=== PATIENT | female | born 1945 | race Caucasian/White ===

== ENCOUNTER 2018-10-24 16:13 | Inpatient (IN) | payer MEDICARE, MEDICAID, SELFPAY ==
--- NOTE | 2018-10-24 00:30 | DI.RAD_ITS ---
EXAM: XR LUMBAR SPINE 1V ONLY INDICATION: lower back pain. FINDINGS: A frontal image of the lumbosacral spine is provided. There is a mild levo rotoscoliosis and there is an apparent old compression fracture of L2 with slight loss of height of L1, these findings are unch anged when compared with the previous examination. Degenerative changes are noted throughout the lum bosacral spine. This is a limited examination and if there is any further question, a complete lumbo sacral spine series is suggested.
--- NOTE | 2018-10-24 00:30 | DI.RAD_ITS ---
EXAM: XR HIP PELVIS ADULT BL INDICATION: right hip and lower back pain; s/p fall. COMPARISON: No exams were available for comparison TECHNIQUE: 2D digital imaging was performed. FINDINGS: The right hip appears intact. The left hip is well maintained. As visualized, the pelvic bones appea r unremarkable.
[2018-10-24 16:10] VITALS: BP 115/91; PULSE 64; RESP 16; TEMP 36.6; O2SAT 97
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
[2018-10-24] MEDS: LORazepam 1 MG TAB PO (16:49)
[2018-10-24] MEDS: traMADol 50 MG TAB PO (16:49)
[2018-10-24 17:19] LABS: Absolute Basophil Count 0.01 k/cumm (0.0-0.2); Absolute Eosinophil Count 0.16 k/cumm (0.0-0.7); Absolute Lymphocyte Count 0.63 k/cumm (1.2-3.4); Absolute Monocyte Count 0.34 k/cumm (0.11-0.7); Absolute Neutrophil Count 1.32 k/cumm (1.2-6.7); Basophils % 0.4; Eosinophils % 6.5; HCT 34.2 % (36.0-46.0); HGB 10.8 g/dL (12.0-15.5); Lymphocytes % 25.6; Mean Corp. HGB Concentration 31.6 g/dL (32.0-36.0); Mean Corpuscular Hemoglobin 29.9 pg (27.0-33.0); Mean Corpuscular Volume 94.7 fL (80-95); Mean Platelet Volume 9.2 fL (8.0-11.0); Monocytes % 13.8; Neutrophils % 53.7; RBC 3.61 m/cumm (4.00-5.20); RBC Distribution Width 15.4 % (11.7-14.6); White Blood Cell Count 2.46 k/cumm (4.4-10.8)
[2018-10-24 17:41] LABS: Platelet Count 72 x1000/uL (130-400)
[2018-10-24 17:59] LABS: ALT 20 U/L (14-59); AST 30 U/L (15-37); Albumin 2.9 g/dL (3.4-5.0); Alkaline Phosphatase 104 U/L (46-116); Anion Gap 8.3 mmol/L (3-11); BUN 13 mg/dL (7-18); Bilirubin, Total 1.4 mg/dL (0.2-1.0); CO2 29.7 mmol/L (21.0-32.0); CREATININE 1.05 mg/dL (0.55-1.02); Calcium 8.1 mg/dL (8.5-10.1); Chloride 105 mmol/L (98-107); Estimated GFR 51.66 (mL/min/1.73m2); Glucose 140 mg/dL (70-100); Potassium 3.5 mmol/L (3.5-5.1); Sodium 143 mmol/L (136-145); TSH 3.56 uIU/mL (0.36-3.74); Total Protein 5.9 g/dL (6.4-8.2)
[2018-10-24 18:00] LABS: ETHANOL BLOOD < 3.0 mg/dL (<3)
[2018-10-24] MEDS: Lidocaine 5% Patch 1 PATCH TP (18:10)
[2018-10-24] MEDS: Acetaminophen 325 MG TAB 650 MG PO (18:10)
[2018-10-24 18:14] LABS: Acetaminophen < 2 ug/mL (10-30); Salicylate < 2.8 mg/dL (2.8-20.0)
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
[2018-10-24 23:30] VITALS: BP 101/65; PULSE 68; RESP 18; TEMP 36.4; O2SAT 98
[2018-10-24] MEDS: LORazepam 0.5 MG TAB 1 MG PO (23:51)
[2018-10-24] MEDS: Acetaminophen 325 MG TAB PO (23:52)
--- NOTE | 2018-10-25 00:48 | DI.VRAD_ITS ---
PROCEDURE INFORMATION: Exam: XR Bilateral Hips with Pelvis when Performed Exam date and time: 10/24/2018 11:35 PM Clinical history: 73 years old, female; Hip pain; Bilateral; Additional info: Right hip and lower back pain S/P fall TECHNIQUE: Imaging protocol: XR bilateral hips with pelvis when performed. Views: 2 views. COMPARISON: No relevant prior studies available. FINDINGS: Bones/joints: Typical for age. No evidence of acute fracture. Soft tissues: Unremarkable. IMPRESSION: No acute findings. Dictated and Authenticated by: Maxx Mohan MD. Ordering:[facility] Iron Hager MD
--- NOTE | 2018-10-25 00:50 | DI.VRAD_ITS ---
PROCEDURE INFORMATION: Exam: XR Spine, 1 view. Exam date and time: 10/24/2018 11:36 PM Clinical history: 73 years old, female; Patient status: Conscious; Pain: Right hip and lower back pain S/P fall TECHNIQUE: Imaging protocol: XR of the spine, 1 view. COMPARISON: No relevant prior studies available. FINDINGS: Limited single AP view. Single AP view is of limited value. Possible loss of height L1 and L2 vertebral bodies. Diffuse mild to moderate degenerative changes. Large amount of stool in the rectal vault. IMPRESSION: Limited study. Degenerative change and possibly some compression fractures at L1 and more notably at L2. Indeterminate age. Large amount of stool in the rectum. Correlate with any impaction symptoms. Dictated and Authenticated by: Maxx Mohan MD. [facility]ager [facility]
[2018-10-25] MEDS: hydrOXYzine HCL 50 MG TAB PO ×2 (01:20→10:28)
[2018-10-25] MEDS: Lidocaine 5% Patch 3 PATCH TP (05:45)
[2018-10-25] MEDS: traMADol 50 MG TAB 100 MG PO (06:25)
--- NOTE | 2018-10-25 07:49 | PHARADMIT ---
Addendum entered by Ora Velasquez 10/30/18 11:20: Pharmacy Note Subjective psych consult today Objective HR-49 other VS okay Assessment mirtazapine discontinued yesterday rifaxamin continues (day 6) Plan CM working on setting up outpatient DIRECTOR OF CAREER RESOURCES services and discharge planning Original Note: Admission Pharmacy Clinical Review agitation, failure TO manage as outpatient Code Status Full Code Current Weight Wgt-121.5 kg Renally Cleared and Narrow Therapeutic Index Meds CrCl~ ?? QTc Value / Action Taken NA BP Control, Fever BP- 101/65 Tmax- 36.4C Electrolytes reviewed Na-143 K+3.5 DVT Prophylaxis Lovenox 40mg ??? low Plts will ask MD Opiate Usage / Scheduled Bowel Regimen Ordered Tramadol/Miralax-Senna Plt/SCr for Heparin / Enoxaparin Plts-72 SCr-1.05 INR for Warfarin na H/H stable, WBC/Bands H&H- 10.8/34.2 WBC- 2.46 Antibiotic appropriateness Rifaximin Cultures and Sensitivities NONE Surgical ABX d/c within 24 hr NA DM control / Insulin Dosing BG-140 EkC5e-0.4% Heart Failure (Check EF%) (HECTOR's, B-Block, Diuretics) Inderal, Torsemide, Spironolactone IV to PO Switch NA Home Meds Reviewed Yes Home Meds Not Ordered All Ordered Comments 2 SEPARATE ORDERS FOR Lidoderm Patches to ask
[2018-10-25 08:02] LABS: Hemoglobin A1C 5.4 % (4.5-6.2)
[2018-10-25] MEDS: Acetaminophen 325 MG TAB PO (10:27)
[2018-10-25] MEDS: Gabapentin 300 MG CAP PO ×2 (10:28→20:11)
[2018-10-25] MEDS: LORazepam 0.5 MG TAB 1 MG PO (10:28)
[2018-10-25] MEDS: Methocarbamol 750 MG TAB 1500 MG PO (10:28)
[2018-10-25 10:30] VITALS: BP 117/76; PULSE 63; RESP 18; TEMP 36.8; O2SAT 98
[2018-10-25] MEDS: Citalopram 20 MG TAB 40 MG PO (10:34)
[2018-10-25] MEDS: Rifaximin 550 MG TAB PO ×2 (10:34→20:11)
[2018-10-25] MEDS: Ferrous Sulfate 325 MG TAB PO (10:34)
[2018-10-25] MEDS: Propranolol 10 MG TAB PO ×2 (10:34→20:12)
[2018-10-25] MEDS: Torsemide 20 MG TAB 60 MG PO (10:34)
[2018-10-25] MEDS: Pantoprazole 40 MG TABCR PO ×2 (10:34→20:11)
[2018-10-25] MEDS: buPROPion-XL 150 MG TABCR PO (10:34)
[2018-10-25] MEDS: Spironolactone 50 MG TAB 100 MG PO ×2 (10:34→20:10)
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
[2018-10-25 15:04] LABS: Ammonia 102 umol/L (11-32)
[2018-10-25 15:07] LABS: ALT 19 U/L (14-59); AST 26 U/L (15-37); Albumin 2.8 g/dL (3.4-5.0); Alkaline Phosphatase 100 U/L (46-116); Bilirubin, Total 1.2 mg/dL (0.2-1.0); Total Protein 5.8 g/dL (6.4-8.2)
--- NOTE | 2018-10-25 15:31 | DI.CT_ITS ---
EXAM: CT LUMBAR SPINE WO CLINICAL HISTORY: ? compression fx L1-L2. TECHNIQUE: CT examination of the lumbosacral spine was performed utilizing multislice acquisition an d multiplanar reconstruction. COMPARISON: No exams were available for comparison FINDINGS: The bones are markedly demineralized. There is superior endplate compression of L2 vertebral body, w hich is of uncertain age. There may be a new anterior vertebral body compression fracture with sligh t loss of height anteriorly, 10-15 percent of the vertebral height. No additional fracture identifie d in the lumbar region. There are moderate hypertrophic degenerative changes of the facet joints and endplates. There appears to be moderate central canal spinal stenosis at L4-5 and mild central iesha l spinal stenosis at L3-4. No gross neural foraminal stenosis noted from L1-2 through L4-5. There i s probable mild bilateral neural foraminal stenosis at L5-S1. IMPRESSION: Slight anterior vertebral body compression fracture of L2, probably superimposed on chronic superior endplate compression. Moderate central canal spinal stenosis at L4-5, mild central canal spinal steno sis at L3-4.
[2018-10-25 15:47] VITALS: BP 95/54; PULSE 53; RESP 19; TEMP 36.5; O2SAT 95
[2018-10-25 17:07] VITALS: BP 111/65; PULSE 50
--- NOTE | 2018-10-25 17:45 | PDOC.CMIN ---
- If Service Date Differs Date of service: 10/25/18 Time of Service: 17:45 Care Management Initial Assess REASON FOR HOSPITALIZATION:: Agitation, failure to manage outpatient PAST MEDICAL HISTORY/PAST SURGICAL HISTORY:: Medical History. Anxiety (Chronic). Chronic acquired lymphedema (Acute). Cirrhosis of liver (Acute). Degenerative disc disease (Acute). Depression (Chronic). Diastolic CHF (Chronic). Fatty liver (Acute). Hx of esophageal varices (Acute). Iron deficiency anemia (Acute). Morbid obesity (Acute). Myelodysplasia (myelodysplastic syndrome) (Acute). Osteoarthritis (Chronic). PTSD (post-traumatic stress disorder) (Acute). Sleep apnea (Acute). Thrombocythemia (Acute). Type 2 diabetes mellitus (Chronic) PREVIOUS FUNCTIONAL STATUS/SOCIAL/FAMILY SUPPORTS:: 73 yr old female former resident of [place], [place] who had a prolonged stay at [facility] for anxiety and depression (reportedly 4 months d/t inability to place her in outpatient setting) who was discharged 13 days ago to home care setting in [place]. CURRENT FUNCTIONAL STATUS:: Tammy was sleeping when CM met with her, along with her counter caser from [facility]. She was unable to communicate due to drowsiness. ADVANCE DIRECTIVES:: None on file Has patient been provided with information about the portal?: No Did the patient sign up for the portal?: No CODE STATUS:: Full Code INSURANCE COVERAGE / FINANCIAL ISSUES:: [facility] CURRENT HOME/COMMUNITY SERVICES/EQUIPMENT:: Tammy has previously been [employer] client in [facility]. She was placed in an AF home through [facility]. Her counter caser is working on providing her with services in this area. PRIMARY CARE PHYSICIAN:: Zulay Barth POTENTIAL DISCHARGE NEEDS:: Evaluations for further needs, follow up appoinments, referrals to community supports. PATIENT/FAMILY EDUCATION NEEDS:: Review of community based supports, discharge plan, discussion of self care needs upon discharge including 'Ask Me Three' ANTICIPATED BARRIERS TO DISCHARGE:: Tammy is in need of community supports through [facility] including S[employer], psychiatry, therapist and behavioral plan. TRANSPORTATION:: Anticipate Tammy will be transported via private vehicle by [facility] home provider. PLAN:: Support discharge planning and coordination of services through [facility] and [facility] services. CM will continue to follow.
[2018-10-25] MEDS: Patch Removal 3 EACH TP (18:08)
--- NOTE | 2018-10-25 18:43 | NUR.NOTE ---
Nursing Note: Pt was very drowsy but arousable all shift [id number]. INTERNATIONAL RELATIONS PROFESSOR chelle Sandoval informed of Pt LOC this morning around 1030 and again at 1430. Pt too drowsy to safely take PO medications. Declined all Meals during this scribes shift. Offered Pt liquids, declined those as well. incontinent x3.
--- NOTE | 2018-10-25 19:03 | DI.CT_ITS ---
EXAM: CT HEAD WO CLINICAL HISTORY: Altered mental status. TECHNIQUE: A noncontrast cranial CT was performed according to the usual protocol. COMPARISON: No exams were available for comparison FINDINGS: Mild atrophic changes are noted. There is no evidence of an intra or extra-axial hemorrhage. Ventric les are normal. No skull fracture is seen. Sinuses are unremarkable. There is no evidence of a masto id effusion. IMPRESSION: No acute intracranial abnormality is identified.
--- NOTE | 2018-10-25 19:15 | DI.VRAD_ITS ---
PROCEDURE INFORMATION: Exam: CT Head Without Contrast Exam date and time: 10/25/2018 7:01 PM Clinical history: 73 years old, female; Alteration of consciousness; Transient alteration of awareness TECHNIQUE: Imaging protocol: Computed tomography of the head without contrast. Radiation optimization: All CT scans at this facility use at least one of these dose optimization techniques: automated exposure control; mA and/or kV adjustment per patient size (includes targeted exams where dose is matched to clinical indication); or iterative reconstruction. COMPARISON: No relevant prior studies available. FINDINGS: Brain: There is mild prominence of the cerebral cortical markings. Ventricles: Normal. No ventriculomegaly. Bones/joints: Unremarkable. No acute fracture. Sinuses: Visualized sinuses are unremarkable. No fluid levels. Mastoid air cells: Visualized mastoid air cells are well aerated. Soft tissues: Unremarkable. IMPRESSION: 1. No acute intracranial abnormality is identified. 2. Mild age commensurate cerebral cortical atrophy. Dictated and Authenticated by: Tony Quispe MD. Ordering:MERISSA Montalvo MD
[2018-10-25] MEDS: Lactulose 20 GM/30 ML CUP 45 GM PO (20:10)
[2018-10-25] MEDS: Nystatin OINT 15 GM TUBE TP (20:13)
[2018-10-25 22:02] VITALS: BP 119/68; PULSE 58; RESP 18; TEMP 36.2; O2SAT 98
[2018-10-25] MEDS: Senna TAB 1 TAB PO (22:12)
[2018-10-26] MEDS: Lidocaine 5% Patch 3 PATCH TP (06:20)
[2018-10-26 06:52] LABS: Ammonia 28 umol/L (11-32)
[2018-10-26 06:53] LABS: ALT 18 U/L (14-59); AST 24 U/L (15-37); Albumin 2.9 g/dL (3.4-5.0); Alkaline Phosphatase 103 U/L (46-116); Bilirubin, Direct 0.36 mg/dL (0.00-0.20); Total Protein 6.1 g/dL (6.4-8.2)
[2018-10-26 07:30] VITALS: BP 108/60; PULSE 63; RESP 18; TEMP 36.5; O2SAT 93
[2018-10-26 08:23] LABS: Anion Gap 9.6 mmol/L (3-11); BUN 15 mg/dL (7-18); CO2 28.4 mmol/L (21.0-32.0); Calcium 8.5 mg/dL (8.5-10.1); Chloride 109 mmol/L (98-107); Estimated GFR 48.96 (mL/min/1.73m2); Glucose 96 mg/dL (70-100); Magnesium 2.2 mg/dL (1.8-2.4); Potassium 3.7 mmol/L (3.5-5.1); Sodium 147 mmol/L (136-145)
--- NOTE | 2018-10-26 08:55 | NT_ITS ---
Date of service: 10/26/18 Time of Service: 08:33 PT Notes Patient is a 73-year-old female who presented to the ED on 10/24/2018 with chief presentation of anxiety and right hip pain. Patient also has had a fall. CT scan of head revealed no intracranial abnormality. X-ray of lumbar spine showed DJD and L1 compression fracture of indeterminate age. X-ray of both hips showed no fracture/dislocation. A PT evaluation was attempted early today with OT. Patient appeared drowsy and did not want to engage in any attempts at initiating PT evaluation. She states that she is cold and did not want her bed sheets taken off. An attempt at accessing her back was made but patient persisted on having her sheets on. Irina dayanna does not appear to be appropriate for skilled PT services at this time. Will plan to do PT evaluation once patient is settled in and once she is more cognitively/emotionally stable after re-adjustment is done with her anxiolyics and adntidepressants. Thank you very much for this referral. Angelique Pisano PT, DPT, CLT [facility]
--- NOTE | 2018-10-26 08:56 | OT.INNT ---
Date of service: 10/26/18 Time of Service: 08:35 Occupational Therapy Notes 10/26/18 OT consult received and patient's chart was reviewed. OT went in to assess pt. Pt denies OT services at this time with little to no eye contact and reports that she just wants to sleep. Based on pt's current level of function, OT does not feel that pt is appropriate for rehabilitation services at this time. If pt does stabilize and MD feels that pt may still benefit from skilled OT services in the future, OT will need a new referral in order to see patient. Michelle Jesus, OTR/[facility]
--- NOTE | 2018-10-26 10:46 | NT_ITS ---
Date of service: 10/26/18 Time of Service: 10:46 PT Notes Another attempt at evaluation was made per request of nurse who stated that patient wanted to use the bathroom. Student PT and PT came back in to attempt to mobilize patient but patient expressed pain with just gentle touch and cried out her answer of wanting to back to [place]. PT and PREVENTIVE MEDICINE SPECIALIST tried to pacify patient explaining to her that if she needed to go back to [place], she needs to be able to work with PT so she can be safe. Patient was also informed about not needing to cry as we were there to help her and not hurt her. Patient continued to be uncooperative despite all these. Skilled PT services are not advisable at this time as patient continues to be unable to participate. Thank you very much for this referral. Angelique Pisano PT, DPT, CLT [facility]
--- NOTE | 2018-10-26 12:16 | W.PM.PROGNOT ---
Date of Service Date of service: 10/26/18 Time of Service: 12:17 Assessment and Plan Assessment and plan (1) Compression fracture: Start date: 10/26/18 Start time: 12:34 Status: Acute Assessment and plan: CT reveals slight anterior vertebral body compression fracture of L2, probably superimposed on chronic superior endplate compression. Moderate central canal spinal stenosis at L4-5, mild central canal spinal stenosis at L3-4. Warm pack for comfort. Lidoderm patch PT/OT for ambulation Consider tramadol low dose if patient presents with worsening pain when awake. Increase dose to every 12 hours given cirrhosis history. (2) Chronic low back pain: Start date: 10/26/18 Start time: 12:33 Status: Chronic Assessment and plan: Tramadol on hold at this time given lethargy. Continue to monitor. PT/OT, warm back and lidoderm patch for pain, Qualifiers: Back pain laterality: midline Sciatica presence: without sciatica Qualified Code(s): M54.5 - Low back pain; G89.29 - Other chronic pain (3) Right hip pain: Start date: 10/26/18 Start time: 12:33 Status: Acute Assessment and plan: as above (4) Depression: Start date: 10/26/18 Start time: 12:33 Status: Chronic Assessment and plan: Wellbutrin resumed. Ativan held in setting of patient sleepy. Continue to monitor moods. Qualifiers: Depression Type: major depressive disorder Major depression recurrence: recurrent Active/Remission status: currently active Major depression episode severity: moderate Qualified Code(s): F33.1 - Major depressive disorder, recurrent, moderate (5) Anxiety: Start date: 10/26/18 Start time: 12:32 Status: Chronic Assessment and plan: as above (6) Discharge planning issues: Start date: 10/26/18 Start time: 12:32 Status: Acute Assessment and plan: Her current ACF is interested in taking her back home. (7) Type 2 diabetes mellitus: Start date: 10/26/18 Start time: 12:31 Status: Chronic Assessment and plan: A1C 5.4. Finger sticks BID will be dcd. Qualifiers: Diabetes mellitus mcc insulin use: without exterminator termite use Diabetes mellitus complication status: without complication Qualified Code(s): E11.9 - Type 2 diabetes mellitus without complications (8) Cirrhosis of liver: Start date: 10/26/18 Start time: 12:28 Status: Acute Assessment and plan: Does note appear active at this time. AST ALT normal. Slightly elevated pneumonia within normal limits today. Continue lactulose, rifaximin, spirlactone and torsemide. (9) Diastolic CHF: Start date: 10/26/18 Start time: 12:31 Status: Chronic Assessment and plan: she does not appear to be in overt CHF at this time. I will continue her current diuretic and blood pressure regimen of torsemide, spironolactone, and propranolol The above has been discussed with Dr. Vinson who is in agreement. Qualifiers: Heart failure chronicity: chronic Qualified Code(s): I50.32 - Chronic diastolic (congestive) heart failure Subjective Subjective Patient reports: no new complaints Interval history since last seen: Question of compression fracture by xray. CT obtained revealing slight anterior vertebral body compression fracture of L2, probably superimposed on chronic superior endplate compression. PT/OT. Warm pack for comfort, lidoderm patch. Once more awake consider small dose tramadol for pain. Can be very manipulative, per CM does well with boundaries and limitations. Exam Const General: cooperative and no acute distress Nutritional Appearance: obese HENMT Head: normal to inspection and periorbital ecchymosis Face and sinus: normal facial exam Eyes Eyelids: eyelids normal Conjunctivae: conjunctivae normal Pupils: PERRL Neck Neck: normal visual inspection Lymphatic: no lymphadenopathy noted and no lymphedema noted Chest Chest: normal inspection of the chest Resp Effort & Inspection: normal respiratory effort and able to speak in complete sentences Auscultation: clear to auscultation bilaterally Cardio Jugular venous pressure: no JVD Rate: regular rate Rhythm: regular rhythm Heart Sounds: S1 normal, S2 normal and normal, physiologic split S2 GI Inspection: normal to inspection Palpation: soft and no hepatosplenomegaly Auscultation: normal bowel sounds Skin General skin exam: ecchymosis (right periorbital) Lesions: no lesions Neuro General: other (unable to assess at this time as patient is sleepy but arousable) Extrem General: normal to inspection Right lower extremity: no cyanosis Left lower extremity: no cyanosis Objective Objective Clinical Data: Abnormal lab results 10/25/18 10/25/18 10/26/18 Range/Units 14:42 14:42 06:20 Sodium (136-145) mmol/L Chloride (98-107) mmol/L Creatinine (0.55-1.02) mg/dL Total Bilirubin 1.2 H (0.2-1.0) mg/dL Conjugated Bilirubin 0.40 H 0.36 H (0.00-0.20) mg/dL Ammonia 102 H (11-32) umol/L Total Protein 5.8 L 6.1 L (6.4-8.2) g/dL Albumin 2.8 L 2.9 L (3.4-5.0) g/dL 10/26/18 Range/Units 06:20 Sodium 147 H (136-145) mmol/L Chloride 109 H (98-107) mmol/L Creatinine 1.10 H (0.55-1.02) mg/dL Total Bilirubin (0.2-1.0) mg/dL Conjugated Bilirubin (0.00-0.20) mg/dL Ammonia (11-32) umol/L Total Protein (6.4-8.2) g/dL Albumin (3.4-5.0) g/dL Vital Signs Temperature 36.5 C 10/26/18 07:30 Temperature Source Tympanic 10/26/18 07:30 Pulse 63 10/26/18 07:30 Pulse Rhythm Regular 10/25/18 20:33 Respiratory Rate 18 10/26/18 07:30 Respiratory Effort Non-Labored 10/26/18 04:03 Respiratory Depth Normal 10/26/18 04:03 Respiratory Pattern Normal 10/26/18 04:03 Blood Pressure 108/60 10/26/18 07:30 Blood Pressure Position Supine 10/24/18 16:10 Pulse Oximetry 93 L 10/26/18 07:30 Oxygen Delivery Method Room Air 10/26/18 07:30 Oxygen Flow Rate 0 10/26/18 07:30 Pain Level 5 10/26/18 07:30 Intake & Output 10/25/18 10/26/18 10/26/18 23:59 11:59 23:59 Other: Urine Color Pale Pale Yellow Urine Appearance Clear Clear Urine Odor None None Comment large void on bed jin, partially incontinent Stool Size Small Small Stool Characteristics Hard Formed Hard Voiding Methods Diaper Diaper Incontinent Laboratory Results WBC 2.46 k/cumm (4.4-10.8) L 10/24/18 17:15 RBC 3.61 m/cumm (4.00-5.20) L 10/24/18 17:15 Hgb 10.8 g/dL (12.0-15.5) L 10/24/18 17:15 Hct 34.2 % (36.0-46.0) L 10/24/18 17:15 MCV 94.7 fL (80-95) 10/24/18 17:15 MCH 29.9 pg (27.0-33.0) 10/24/18 17:15 MCHC 31.6 g/dL (32.0-36.0) L 10/24/18 17:15 RDW 15.4 % (11.7-14.6) H 10/24/18 17:15 Plt Count 72 x1000/uL (130-400) L 10/24/18 17:15 MPV 9.2 fL (8.0-11.0) 10/24/18 17:15 Immature Gran % 0.0 10/24/18 17:15 Neutrophils % 53.7 10/24/18 17:15 Lymphocytes % 25.6 10/24/18 17:15 Monocytes % 13.8 10/24/18 17:15 Eosinophils % 6.5 10/24/18 17:15 Basophils % 0.4 10/24/18 17:15 Absolute Neutrophils 1.32 k/cumm (1.2-6.7) 10/24/18 17:15 Absolute Lymphocytes 0.63 k/cumm (1.2-3.4) L 10/24/18 17:15 Absolute Monocytes 0.34 k/cumm (0.11-0.7) 10/24/18 17:15 Absolute Eosinophils 0.16 k/cumm (0.0-0.7) 10/24/18 17:15 Absolute Basophils 0.01 k/cumm (0.0-0.2) 10/24/18 17:15 Sodium 147 mmol/L (136-145) H 10/26/18 06:20 Potassium 3.7 mmol/L (3.5-5.1) 10/26/18 06:20 Chloride 109 mmol/L (98-107) H 10/26/18 06:20 Carbon Dioxide 28.4 mmol/L (21.0-32.0) 10/26/18 06:20 Anion Gap 9.6 mmol/L (3-11) 10/26/18 06:20 BUN 15 mg/dL (7-18) 10/26/18 06:20 Creatinine 1.10 mg/dL (0.55-1.02) H 10/26/18 06:20 Estimated GFR/1.73 m2 48.96 (mL/min/1.73m2) 10/26/18 06:20 Glucose 96 mg/dL (70-100) 10/26/18 06:20 Hemoglobin A1c 5.4 % (4.5-6.2) 10/25/18 07:10 Calcium 8.5 mg/dL (8.5-10.1) 10/26/18 06:20 Magnesium 2.2 mg/dL (1.8-2.4) 10/26/18 06:20 Total Bilirubin 1.0 mg/dL (0.2-1.0) 10/26/18 06:20 Conjugated Bilirubin 0.36 mg/dL (0.00-0.20) H 10/26/18 06:20 AST 24 U/L (15-37) 10/26/18 06:20 ALT 18 U/L (14-59) 10/26/18 06:20 Alkaline Phosphatase 103 U/L (46-116) 10/26/18 06:20 Ammonia 28 umol/L (11-32) 10/26/18 06:20 Total Protein 6.1 g/dL (6.4-8.2) L 10/26/18 06:20 Albumin 2.9 g/dL (3.4-5.0) L 10/26/18 06:20 TSH 3.56 uIU/mL (0.36-3.74) 10/24/18 17:15 Salicylates < 2.8 mg/dL (2.8-20.0) L 10/24/18 17:15 Urine Opiates Screen Cancelled 10/24/18 15:40 Urine Methadone Screen Cancelled 10/24/18 15:40 Acetaminophen < 2 ug/mL (10-30) L 10/24/18 17:15 Ur Barbiturates Screen Cancelled 10/24/18 15:40 Ur Tricyclics Screen Cancelled 10/24/18 15:40 Ur Amphetamines Screen Cancelled 10/24/18 15:40 U Benzodiazepines Scrn Cancelled 10/24/18 15:40 Urine Cocaine Screen Cancelled 10/24/18 15:40 Ur THC Screen Cancelled 10/24/18 15:40 Ethyl Alcohol < 3.0 mg/dL (<3) 10/24/18 17:15
[2018-10-26] MEDS: traMADol 50 MG TAB 25 MG PO (14:41)
[2018-10-26] MEDS: Gabapentin 300 MG CAP PO ×2 (14:41→22:38)
[2018-10-26 14:52] LABS: Absolute Basophil Count 0.03 k/cumm (0.0-0.2); Absolute Eosinophil Count 0.37 k/cumm (0.0-0.7); Absolute Lymphocyte Count 0.77 k/cumm (1.2-3.4); Absolute Monocyte Count 0.39 k/cumm (0.11-0.7); Absolute Neutrophil Count 1.11 k/cumm (1.2-6.7); Basophils % 1.1; Eosinophils % 13.9; HCT 36.8 % (36.0-46.0); HGB 11.3 g/dL (12.0-15.5); Lymphocytes % 28.8; Mean Corp. HGB Concentration 30.7 g/dL (32.0-36.0); Mean Corpuscular Hemoglobin 29.8 pg (27.0-33.0); Mean Corpuscular Volume 97.1 fL (80-95); Mean Platelet Volume 10.9 fL (8.0-11.0); Monocytes % 14.6; Neutrophils % 41.6; Platelet Count 84 x1000/uL (130-400); RBC 3.79 m/cumm (4.00-5.20); RBC Distribution Width 15.6 % (11.7-14.6); White Blood Cell Count 2.67 k/cumm (4.4-10.8)
[2018-10-26 16:00] LABS: Diff Comment PLT Morph Reviewed
[2018-10-26] MEDS: Mirtazapine 15 MG TAB 7.5 MG PO (16:41)
[2018-10-26] MEDS: Patch Removal 3 EACH TP (17:49)
--- NOTE | 2018-10-26 18:19 | CMPROGNOTE_ITS ---
- If Service Date Differs Date of service: 10/26/18 Time of Service: 18:19 Care Management Progress Note S/O: Tammy was lying in bed when CM entered the room along with her [facility] home care provider, Dede, and her correctional counselor/case manager with [facility], Chasity. Tammy was pleasant but not very engaging in conversation. CM stated that the providers were working on getting her healthy in order for her to return to [facility]'s house, which she was agreeable to. Tammy has been yelling out for help most of the day. Nursing has been advised to attend to her needs, but to set good limits and boundaries due to her behaviors as reported from CM at [facility] from her previous stay. A: Tammy is a 73 year old female admitted with agitation and failure to manage outpatient. P: Anticipate Tammy will return to [facility] home (Dede's home in [place]) on Monday after being medically cleared. Due to Tammy's behaviors it is important that good limits and boundaries are set by all those who are caring for her while at [facility]. Anticipate Tammy will transport home via private vehicle with Dede. CM will continue to follow.
[2018-10-27 03:35] VITALS: BP 109/66; PULSE 66; RESP 20; TEMP 36.1; O2SAT 98
[2018-10-27] MEDS: Lidocaine 5% Patch 3 PATCH TP (06:59)
[2018-10-27 07:32] LABS: Abs Immature Grans 0.01 k/cumm (0.0-0.09); Absolute Basophil Count 0.02 k/cumm (0.0-0.2); Absolute Eosinophil Count 0.38 k/cumm (0.0-0.7); Absolute Monocyte Count 0.44 k/cumm (0.11-0.7); Absolute Neutrophil Count 1.08 k/cumm (1.2-6.7); Basophils % 0.8; Eosinophils % 14.4; HCT 34.6 % (36.0-46.0); HGB 10.9 g/dL (12.0-15.5); Immature Grans % 0.4; Lymphocytes % 26.6; Mean Corp. HGB Concentration 31.5 g/dL (32.0-36.0); Mean Corpuscular Hemoglobin 29.8 pg (27.0-33.0); Mean Corpuscular Volume 94.5 fL (80-95); Mean Platelet Volume 10.3 fL (8.0-11.0); Monocytes % 16.7; Neutrophils % 41.1; RBC 3.66 m/cumm (4.00-5.20); White Blood Cell Count 2.63 k/cumm (4.4-10.8)
[2018-10-27 07:40] LABS: Anion Gap 8.4 mmol/L (3-11); BUN 13 mg/dL (7-18); CO2 27.6 mmol/L (21.0-32.0); CREATININE 0.96 mg/dL (0.55-1.02); Calcium 8.4 mg/dL (8.5-10.1); Chloride 106 mmol/L (98-107); Estimated GFR 57.29 (mL/min/1.73m2); Glucose 153 mg/dL (70-100); Magnesium 2.2 mg/dL (1.8-2.4); Potassium 3.1 mmol/L (3.5-5.1); Sodium 142 mmol/L (136-145)
[2018-10-27 07:53] LABS: Diff Comment Agrees w/ Instrument; Platelet Count 80 x1000/uL (130-400); RBC Morphology Normal
[2018-10-27] MEDS: Citalopram 20 MG TAB 40 MG PO (08:33)
[2018-10-27] MEDS: LORazepam 0.5 MG TAB PO (08:34)
[2018-10-27] MEDS: Pantoprazole 40 MG TABCR PO ×2 (08:34→19:06)
[2018-10-27] MEDS: Spironolactone 50 MG TAB 100 MG PO ×2 (08:34→19:06)
[2018-10-27] MEDS: buPROPion-XL 150 MG TABCR PO (08:35)
[2018-10-27] MEDS: Gabapentin 300 MG CAP PO ×3 (08:35→19:06)
[2018-10-27] MEDS: Ferrous Sulfate 325 MG TAB PO (08:35)
[2018-10-27] MEDS: Calcium 600mg/Vit D 200U TAB 1 TAB PO ×2 (08:35→19:06)
[2018-10-27] MEDS: Propranolol 10 MG TAB PO ×2 (08:35→19:06)
[2018-10-27] MEDS: Torsemide 20 MG TAB 60 MG PO (08:35)
[2018-10-27] MEDS: Rifaximin 550 MG TAB PO ×2 (08:35→19:06)
[2018-10-27] MEDS: Nystatin OINT 15 GM TUBE TP ×2 (09:05→19:07)
[2018-10-27 09:48] VITALS: BP 111/67; PULSE 71; RESP 18; TEMP 36.6; O2SAT 98
--- NOTE | 2018-10-27 09:51 | PDOC.CMPRO ---
- If Service Date Differs Date of service: 10/27/18 Time of Service: 09:51 Care Management Progress Note S/O: Tammy was sleeping when CM came to see her. At the request of nursing, she was not awakened. Tammy had a long period of yelling and screaming this morning, audible throughout the unit. Initially she refused her medication, but eventually accepted most of it, then fell asleep. CM will continue to follow. A: Tammy is a 73 year old female admitted with agitation and failure to manage outpatient. P: Anticipate Tammy will return to [facility] home (Dede's home in [place]) on Monday after being medically cleared. Due to Tammy's behaviors it is important that good limits and boundaries are set by all those who are caring for her while at [facility]. Anticipate Tammy will transport home via private vehicle with Dede. CM will continue to follow.
[2018-10-27] MEDS: Potassium Chloride 20 MEQ TABCR 40 MEQ PO (10:59)
[2018-10-27] MEDS: Lactulose 20 GM/30 ML CUP 45 GM PO ×2 (11:48→16:06)
[2018-10-27] MEDS: traMADol 50 MG TAB 25 MG PO (12:04)
--- NOTE | 2018-10-27 12:29 | W.PM.PROGNOT ---
Date of Service Date of service: 10/27/18 Time of Service: 12:29 Assessment and Plan Assessment and plan (1) Compression fracture: Start date: 10/27/18 Start time: 12:33 Status: Acute Assessment and plan: continue low dose tramadol for pain, lidoderm patches, and heating pad. Refusing to get up with PT at this time. Will cry out in pain but refuse medication and continue to yell out. (2) Chronic low back pain: Start date: 10/27/18 Start time: 12:35 Status: Chronic Assessment and plan: 25 mg BID restarted for pain with monitoring. Continue heating pad and lidoderm patches. Qualifiers: Back pain laterality: midline Sciatica presence: without sciatica Qualified Code(s): M54.5 - Low back pain; G89.29 - Other chronic pain (3) Right hip pain: Start date: 10/27/18 Start time: 12:36 Status: Acute Assessment and plan: as above (4) Depression: Start date: 10/27/18 Start time: 12:36 Status: Chronic Assessment and plan: Wellbutrin resumed. Ativan held in setting of patient sleepy. started on buspar for mood stabilzer, monitor Continue to monitor moods. Qualifiers: Depression Type: major depressive disorder Major depression recurrence: recurrent Active/Remission status: currently active Major depression episode severity: moderate Qualified Code(s): F33.1 - Major depressive disorder, recurrent, moderate (5) Anxiety: Start date: 10/27/18 Start time: 12:42 Status: Chronic Assessment and plan: as above (6) Discharge planning issues: Start date: 10/27/18 Start time: 12:42 Status: Acute Assessment and plan: Her current ACF is interested in taking her back home. (7) Type 2 diabetes mellitus: Start date: 10/27/18 Start time: 12:43 Status: Chronic Assessment and plan: A1C 5.4. Finger sticks BID will be dcd. Qualifiers: Diabetes mellitus continuous churn buttermaker insulin use: without continuous churn buttermaker use Diabetes mellitus complication status: without complication Qualified Code(s): E11.9 - Type 2 diabetes mellitus without complications (8) Cirrhosis of liver: Start date: 10/27/18 Start time: 12:43 Status: Acute Assessment and plan: Does note appear active at this time. AST ALT normal. Slightly elevated pneumonia within normal limits today. Continue lactulose, rifaximin, spirlactone and torsemide. (9) Diastolic CHF: Start date: 10/27/18 Start time: 12:43 Status: Chronic Assessment and plan: she does not appear to be in overt CHF at this time. I will continue her current diuretic and blood pressure regimen of torsemide, spironolactone, and propranolol The above has been discussed with Dr. Vinson who is in agreement. Qualifiers: Heart failure chronicity: chronic Qualified Code(s): I50.32 - Chronic diastolic (congestive) heart failure (10) Hypokalemia: Start date: 10/27/18 Start time: 12:43 Status: Acute Assessment and plan: Repleted with 40 meq K and monitor am labs. Subjective Subjective Interval history since last seen: Continues to yell out and act out. Will cry out in pain but when offered medication will refuse. Very manipulative behavior. Will self harm if she does not get what she wants. Mirtazipine started to sleep last night. Per nursing slept well, will continue current dose at this time. Exam Const General: cooperative and no acute distress Nutritional Appearance: obese HENMT Head: normal to inspection and periorbital ecchymosis Face and sinus: normal facial exam Eyes Eyelids: eyelids normal Conjunctivae: conjunctivae normal Pupils: PERRL Neck Neck: normal visual inspection Lymphatic: no lymphadenopathy noted and no lymphedema noted Chest Chest: normal inspection of the chest Resp Effort & Inspection: normal respiratory effort and able to speak in complete sentences Auscultation: clear to auscultation bilaterally Cardio Jugular venous pressure: no JVD Rate: regular rate Rhythm: regular rhythm Heart Sounds: S1 normal, S2 normal and normal, physiologic split S2 GI Inspection: normal to inspection Palpation: soft and no hepatosplenomegaly Auscultation: normal bowel sounds Skin General skin exam: ecchymosis (right periorbital) Lesions: no lesions Neuro General: other (unable to assess at this time as patient is sleepy but arousable) Extrem General: normal to inspection Right lower extremity: no cyanosis Left lower extremity: no cyanosis Objective Objective Clinical Data: Abnormal lab results 10/26/18 10/27/18 10/27/18 Range/Units 06:20 06:30 06:30 WBC 2.67 L 2.63 L (4.4-10.8) k/cumm RBC 3.79 L 3.66 L (4.00-5.20) m/cumm Hgb 11.3 L 10.9 L (12.0-15.5) g/dL Hct 34.6 L (36.0-46.0) % MCV 97.1 H (80-95) fL MCHC 30.7 L 31.5 L (32.0-36.0) g/dL RDW 15.6 H 15.0 H (11.7-14.6) % Plt Count 84 L 80 L (130-400) x1000/uL Absolute Neutrophils 1.11 L 1.08 L (1.2-6.7) k/cumm Absolute Lymphocytes 0.77 L 0.70 L (1.2-3.4) k/cumm Potassium 3.1 L (3.5-5.1) mmol/L Glucose 153 H (70-100) mg/dL Calcium 8.4 L (8.5-10.1) mg/dL Vital Signs Temperature 36.1 C L 10/27/18 03:35 Temperature Source Temporal Artery Scan 10/27/18 03:35 Pulse 66 10/27/18 03:35 Pulse Rhythm Irregular 10/27/18 02:35 Respiratory Rate 20 10/27/18 03:35 Respiratory Effort 10/27/18 02:35 Respiratory Depth Normal 10/27/18 02:35 Respiratory Pattern Normal 10/27/18 02:35 Blood Pressure 109/66 10/27/18 03:35 Blood Pressure Position Supine 10/24/18 16:10 Pulse Oximetry 98 10/27/18 03:35 Oxygen Delivery Method Room Air 10/27/18 03:35 Oxygen Flow Rate 0 10/27/18 03:35 Pain Level 0 10/27/18 03:35 Comment 10/27/18 03:35 Intake & Output 10/26/18 10/27/18 10/27/18 23:59 11:59 23:59 Intake Total 240 / 240 Balance 240 / 240 Intake: Oral 240 / 240 Other: Urine Color Yellow Yellow Urine Appearance Clear Comment pt incontinent of a large amount of urine Stool Size Large Small Stool Characteristics Formed Soft Brown Formed Voiding Methods Diaper Diaper Incontinent Incontinent Laboratory Results WBC 2.63 k/cumm (4.4-10.8) L 10/27/18 06:30 RBC 3.66 m/cumm (4.00-5.20) L 10/27/18 06:30 Hgb 10.9 g/dL (12.0-15.5) L 10/27/18 06:30 Hct 34.6 % (36.0-46.0) L 10/27/18 06:30 MCV 94.5 fL (80-95) 10/27/18 06:30 MCH 29.8 pg (27.0-33.0) 10/27/18 06:30 MCHC 31.5 g/dL (32.0-36.0) L 10/27/18 06:30 RDW 15.0 % (11.7-14.6) H 10/27/18 06:30 Plt Count 80 x1000/uL (130-400) L 10/27/18 06:30 MPV 10.3 fL (8.0-11.0) 10/27/18 06:30 Immature Gran % 0.4 10/27/18 06:30 Neutrophils % 41.1 10/27/18 06:30 Lymphocytes % 26.6 10/27/18 06:30 Monocytes % 16.7 10/27/18 06:30 Eosinophils % 14.4 10/27/18 06:30 Basophils % 0.8 10/27/18 06:30 Absolute Neutrophils 1.08 k/cumm (1.2-6.7) L 10/27/18 06:30 Absolute Lymphocytes 0.70 k/cumm (1.2-3.4) L 10/27/18 06:30 Absolute Monocytes 0.44 k/cumm (0.11-0.7) 10/27/18 06:30 Absolute Eosinophils 0.38 k/cumm (0.0-0.7) 10/27/18 06:30 Absolute Basophils 0.02 k/cumm (0.0-0.2) 10/27/18 06:30 Differential Comment Agrees w/ instrument 10/27/18 06:30 RBC Morphology Normal 10/27/18 06:30 Sodium 142 mmol/L (136-145) 10/27/18 06:30 Potassium 3.1 mmol/L (3.5-5.1) L 10/27/18 06:30 Chloride 106 mmol/L (98-107) 10/27/18 06:30 Carbon Dioxide 27.6 mmol/L (21.0-32.0) 10/27/18 06:30 Anion Gap 8.4 mmol/L (3-11) 10/27/18 06:30 BUN 13 mg/dL (7-18) 10/27/18 06:30 Creatinine 0.96 mg/dL (0.55-1.02) 10/27/18 06:30 Estimated GFR/1.73 m2 57.29 (mL/min/1.73m2) 10/27/18 06:30 Glucose 153 mg/dL (70-100) H 10/27/18 06:30 Hemoglobin A1c 5.4 % (4.5-6.2) 10/25/18 07:10 Calcium 8.4 mg/dL (8.5-10.1) L 10/27/18 06:30 Magnesium 2.2 mg/dL (1.8-2.4) 10/27/18 06:30 Total Bilirubin 1.0 mg/dL (0.2-1.0) 10/26/18 06:20 Conjugated Bilirubin 0.36 mg/dL (0.00-0.20) H 10/26/18 06:20 AST 24 U/L (15-37) 10/26/18 06:20 ALT 18 U/L (14-59) 10/26/18 06:20 Alkaline Phosphatase 103 U/L (46-116) 10/26/18 06:20 Ammonia 28 umol/L (11-32) 10/26/18 06:20 Total Protein 6.1 g/dL (6.4-8.2) L 10/26/18 06:20 Albumin 2.9 g/dL (3.4-5.0) L 10/26/18 06:20 TSH 3.56 uIU/mL (0.36-3.74) 10/24/18 17:15 Urine Color Cancelled 10/24/18 16:44 Urine Clarity Cancelled 10/24/18 16:44 Urine pH Cancelled 10/24/18 16:44 Ur Specific [place] Cancelled 10/24/18 16:44 Urine Protein Cancelled 10/24/18 16:44 Urine Ketones Cancelled 10/24/18 16:44 Urine Blood Cancelled 10/24/18 16:44 Urine Nitrite Cancelled 10/24/18 16:44 Urine Bilirubin Cancelled 10/24/18 16:44 Urine Urobilinogen Cancelled 10/24/18 16:44 Ur Leukocyte Esterase Cancelled 10/24/18 16:44 Urine Glucose Cancelled 10/24/18 16:44 Salicylates < 2.8 mg/dL (2.8-20.0) L 10/24/18 17:15 Urine Opiates Screen Cancelled 10/24/18 23:31 Urine Methadone Screen Cancelled 10/24/18 23:31 Acetaminophen < 2 ug/mL (10-30) L 10/24/18 17:15 Ur Barbiturates Screen Cancelled 10/24/18 23:31 Ur Tricyclics Screen Cancelled 10/24/18 23:31 Ur Amphetamines Screen Cancelled 10/24/18 23:31 U Benzodiazepines Scrn Cancelled 10/24/18 23:31 Urine Cocaine Screen Cancelled 10/24/18 23:31 Ur THC Screen Cancelled 10/24/18 23:31 Ethyl Alcohol < 3.0 mg/dL (<3) 10/24/18 17:15
[2018-10-27] MEDS: Mirtazapine 15 MG TAB 7.5 MG PO (16:04)
[2018-10-27 16:28] VITALS: BP 117/67; PULSE 58; RESP 18; TEMP 36.7; O2SAT 97
[2018-10-27] MEDS: Patch Removal 3 EACH TP (18:13)
[2018-10-27] MEDS: busPIRone 5 MG TAB PO (19:09)
[2018-10-28 05:55] VITALS: BP 111/60; PULSE 59; RESP 18; TEMP 36.5
[2018-10-28] MEDS: Lidocaine 5% Patch 3 PATCH TP (05:58)
[2018-10-28 07:20] LABS: Absolute Basophil Count 0.01 k/cumm (0.0-0.2); Absolute Eosinophil Count 0.28 k/cumm (0.0-0.7); Absolute Lymphocyte Count 0.66 k/cumm (1.2-3.4); Absolute Monocyte Count 0.35 k/cumm (0.11-0.7); Absolute Neutrophil Count 1.73 k/cumm (1.2-6.7); Basophils % 0.3; Eosinophils % 9.2; HCT 36.6 % (36.0-46.0); HGB 11.5 g/dL (12.0-15.5); Lymphocytes % 21.8; Mean Corp. HGB Concentration 31.4 g/dL (32.0-36.0); Mean Corpuscular Hemoglobin 29.7 pg (27.0-33.0); Mean Corpuscular Volume 94.6 fL (80-95); Mean Platelet Volume 10.6 fL (8.0-11.0); Monocytes % 11.6; Neutrophils % 57.1; RBC 3.87 m/cumm (4.00-5.20); White Blood Cell Count 3.03 k/cumm (4.4-10.8)
[2018-10-28 07:32] LABS: Anion Gap 8.1 mmol/L (3-11); BUN 17 mg/dL (7-18); CO2 28.9 mmol/L (21.0-32.0); CREATININE 1.03 mg/dL (0.55-1.02); Calcium 8.7 mg/dL (8.5-10.1); Chloride 108 mmol/L (98-107); Estimated GFR 52.82 (mL/min/1.73m2); Glucose 121 mg/dL (70-100); Potassium 4.3 mmol/L (3.5-5.1); Sodium 145 mmol/L (136-145)
[2018-10-28 07:35] LABS: Platelet Count 71 x1000/uL (130-400)
[2018-10-28 07:36] LABS: Anisocytosis 1+; Diff Comment RBC Morph Reviewed; Polychromasia Present
[2018-10-28 08:00] VITALS: BP 118/73; PULSE 58; RESP 19; TEMP 36.6; O2SAT 98
[2018-10-28] MEDS: Lactulose 20 GM/30 ML CUP 45 GM PO ×3 (08:41→17:09)
[2018-10-28] MEDS: Polyethylene Glycol 3350 17 GM PACKET PO (08:41)
[2018-10-28] MEDS: Propranolol 10 MG TAB PO ×2 (08:42→20:11)
[2018-10-28] MEDS: buPROPion-XL 150 MG TABCR PO (08:42)
[2018-10-28] MEDS: Citalopram 20 MG TAB 40 MG PO (08:42)
[2018-10-28] MEDS: Gabapentin 300 MG CAP PO ×2 (08:43→20:11)
[2018-10-28] MEDS: Spironolactone 50 MG TAB 100 MG PO ×2 (08:43→20:10)
[2018-10-28] MEDS: Rifaximin 550 MG TAB PO ×2 (08:43→20:11)
[2018-10-28] MEDS: Torsemide 20 MG TAB 60 MG PO (08:43)
[2018-10-28] MEDS: Ferrous Sulfate 325 MG TAB PO ×2 (08:44→20:20)
[2018-10-28] MEDS: Calcium 600mg/Vit D 200U TAB 1 TAB PO ×2 (08:44→20:10)
[2018-10-28] MEDS: Pantoprazole 40 MG TABCR PO ×2 (08:44→20:10)
[2018-10-28] MEDS: LORazepam 0.5 MG TAB PO (08:44)
[2018-10-28] MEDS: busPIRone 5 MG TAB PO ×2 (08:44→20:10)
[2018-10-28] MEDS: Nystatin OINT 15 GM TUBE TP ×2 (08:53→20:11)
--- NOTE | 2018-10-28 11:17 | PDOC.CMPRO ---
- If Service Date Differs Date of service: 10/28/18 Time of Service: 11:17 Care Management Progress Note S/O: A: Tammy is a 73 year old female admitted with agitation and failure to manage outpatient. P: Anticipate Tammy will return to [facility] home ([facility] home in [place]) on Monday after being medically cleared. Due to Tammy's behaviors it is important that good limits and boundaries are set by all those who are caring for her while at [facility]. Anticipate Tammy will transport home via private vehicle with [facility]. CM will continue to follow.
--- NOTE | 2018-10-28 11:54 | W.PM.PROGNOT ---
Date of Service Date of service: 10/28/18 Time of Service: 11:54 Assessment and Plan Assessment and plan (1) Compression fracture: Start date: 10/28/18 Start time: 12:11 Status: Acute Assessment and plan: continue low dose tramadol for pain, lidoderm patches, and heating pad. Refusing to get up with PT at this time. Appears to better controlled. Not crying out as much (2) Chronic low back pain: Start date: 10/28/18 Start time: 12:12 Status: Chronic Assessment and plan: 25 mg tramadol BID restarted for pain with monitoring. Continue heating pad and lidoderm patches. Qualifiers: Back pain laterality: midline Sciatica presence: without sciatica Qualified Code(s): M54.5 - Low back pain; G89.29 - Other chronic pain (3) Right hip pain: Start date: 10/28/18 Start time: 12:12 Status: Acute Assessment and plan: as above (4) Depression: Start date: 10/28/18 Start time: 12:12 Status: Chronic Assessment and plan: Wellbutrin resumed. Olzapine started in am for depression. Used at [facility] and started on buspar for mood stabilzer, Continue to monitor moods. Qualifiers: Depression Type: major depressive disorder Major depression recurrence: recurrent Active/Remission status: currently active Major depression episode severity: moderate Qualified Code(s): F33.1 - Major depressive disorder, recurrent, moderate (5) Anxiety: Start date: 10/28/18 Start time: 12:15 Status: Chronic Assessment and plan: as above (6) Discharge planning issues: Start date: 10/28/18 Start time: 12:15 Status: Acute Assessment and plan: Her current ACF is interested in taking her back home Monday (7) Cirrhosis of liver: Start date: 10/28/18 Start time: 12:19 Status: Acute Assessment and plan: not exacerbated at this time (8) Diastolic CHF: Start date: 10/28/18 Start time: 12:19 Status: Chronic Assessment and plan: not exacerbated at this time The above has been discussed with Dr. Bryant who is in agreement. Qualifiers: Heart failure chronicity: chronic Qualified Code(s): I50.32 - Chronic diastolic (congestive) heart failure (9) Hypokalemia: Start date: 10/28/18 Start time: 12:20 Status: Acute Assessment and plan: Resolved. continue to monitor. Subjective Subjective Patient reports: no new complaints Interval history since last seen: Discharge summary reviewed from [facility], patient was on olanzipine for agitation, we will trial this medication. Iron was low, rechecking level now, and a 1 cm pulmonary nodule was found recommend follow up with pulmonary as an outpatient. Exam Const General: cooperative and no acute distress Nutritional Appearance: obese HENMT Head: normal to inspection and periorbital ecchymosis Face and sinus: normal facial exam Eyes Eyelids: eyelids normal Conjunctivae: conjunctivae normal Pupils: PERRL Neck Neck: normal visual inspection Lymphatic: no lymphadenopathy noted and no lymphedema noted Chest Chest: normal inspection of the chest Resp Effort & Inspection: normal respiratory effort and able to speak in complete sentences Auscultation: clear to auscultation bilaterally Cardio Jugular venous pressure: no JVD Rate: regular rate Rhythm: regular rhythm Heart Sounds: S1 normal, S2 normal and normal, physiologic split S2 GI Inspection: normal to inspection Palpation: soft and no hepatosplenomegaly Auscultation: normal bowel sounds Skin General skin exam: ecchymosis (right periorbital) Lesions: no lesions Neuro General: other (unable to assess at this time as patient is sleepy but arousable) Extrem General: normal to inspection Right lower extremity: no cyanosis Left lower extremity: no cyanosis Objective Objective Clinical Data: Abnormal lab results 10/28/18 10/28/18 Range/Units 07:00 07:00 WBC 3.03 L (4.4-10.8) k/cumm RBC 3.87 L (4.00-5.20) m/cumm Hgb 11.5 L (12.0-15.5) g/dL MCHC 31.4 L (32.0-36.0) g/dL RDW 15.0 H (11.7-14.6) % Plt Count 71 L (130-400) x1000/uL Absolute Lymphocytes 0.66 L (1.2-3.4) k/cumm Chloride 108 H (98-107) mmol/L Creatinine 1.03 H (0.55-1.02) mg/dL Glucose 121 H (70-100) mg/dL Vital Signs Temperature 36.6 C 10/28/18 08:00 Temperature Source Tympanic 10/28/18 08:00 Pulse 58 L 10/28/18 08:00 Pulse Rhythm Regular 10/28/18 05:55 Respiratory Rate 19 10/28/18 08:00 Respiratory Effort 10/28/18 05:55 Respiratory Depth Normal 10/28/18 05:55 Respiratory Pattern Normal 10/28/18 05:55 Blood Pressure 118/73 10/28/18 08:00 Blood Pressure Position Supine 10/24/18 16:10 Pulse Oximetry 98 10/28/18 08:00 Oxygen Delivery Method Room Air 10/28/18 08:00 Oxygen Flow Rate 0 10/28/18 08:00 Pain Level 0 10/28/18 05:55 Comment 10/28/18 05:55 Intake & Output 10/27/18 10/27/18 10/28/18 11:59 23:59 11:59 Intake Total 240 / 480 240 / 480 0 / 0 Balance 240 / 480 240 / 480 0 / 0 Intake: Oral 240 / 480 240 / 480 0 / 0 Other: Urine Color Yellow Yellow Yellow Urine Appearance Clear Clear Urine Odor Strong Comment pt incontinent of a large amount of urine incontinent of a large amount of urine Stool Size Moderate Moderate Large Stool Characteristics Soft Soft Soft Formed Brown Brown Voiding Methods Diaper Diaper Diaper Incontinent Incontinent Incontinent Laboratory Results WBC 3.03 k/cumm (4.4-10.8) L 10/28/18 07:00 RBC 3.87 m/cumm (4.00-5.20) L 10/28/18 07:00 Hgb 11.5 g/dL (12.0-15.5) L 10/28/18 07:00 Hct 36.6 % (36.0-46.0) 10/28/18 07:00 MCV 94.6 fL (80-95) 10/28/18 07:00 MCH 29.7 pg (27.0-33.0) 10/28/18 07:00 MCHC 31.4 g/dL (32.0-36.0) L 10/28/18 07:00 RDW 15.0 % (11.7-14.6) H 10/28/18 07:00 Plt Count 71 x1000/uL (130-400) L 10/28/18 07:00 MPV 10.6 fL (8.0-11.0) 10/28/18 07:00 Immature Gran % 0.0 10/28/18 07:00 Neutrophils % 57.1 10/28/18 07:00 Lymphocytes % 21.8 10/28/18 07:00 Monocytes % 11.6 10/28/18 07:00 Eosinophils % 9.2 10/28/18 07:00 Basophils % 0.3 10/28/18 07:00 Absolute Neutrophils 1.73 k/cumm (1.2-6.7) 10/28/18 07:00 Absolute Lymphocytes 0.66 k/cumm (1.2-3.4) L 10/28/18 07:00 Absolute Monocytes 0.35 k/cumm (0.11-0.7) 10/28/18 07:00 Absolute Eosinophils 0.28 k/cumm (0.0-0.7) 10/28/18 07:00 Absolute Basophils 0.01 k/cumm (0.0-0.2) 10/28/18 07:00 Differential Comment Rbc morph reviewed 10/28/18 07:00 RBC Morphology See below 10/28/18 07:00 Polychromasia Present 10/28/18 07:00 Anisocytosis 1+ 10/28/18 07:00 Sodium 145 mmol/L (136-145) 10/28/18 07:00 Potassium 4.3 mmol/L (3.5-5.1) D 10/28/18 07:00 Chloride 108 mmol/L (98-107) H 10/28/18 07:00 Carbon Dioxide 28.9 mmol/L (21.0-32.0) 10/28/18 07:00 Anion Gap 8.1 mmol/L (3-11) 10/28/18 07:00 BUN 17 mg/dL (7-18) 10/28/18 07:00 Creatinine 1.03 mg/dL (0.55-1.02) H 10/28/18 07:00 Estimated GFR/1.73 m2 52.82 (mL/min/1.73m2) 10/28/18 07:00 Glucose 121 mg/dL (70-100) H 10/28/18 07:00 Hemoglobin A1c 5.4 % (4.5-6.2) 10/25/18 07:10 Calcium 8.7 mg/dL (8.5-10.1) 10/28/18 07:00 Magnesium 2.0 mg/dL (1.8-2.4) 10/28/18 07:00 Total Bilirubin 1.0 mg/dL (0.2-1.0) 10/26/18 06:20 Conjugated Bilirubin 0.36 mg/dL (0.00-0.20) H 10/26/18 06:20 AST 24 U/L (15-37) 10/26/18 06:20 ALT 18 U/L (14-59) 10/26/18 06:20 Alkaline Phosphatase 103 U/L (46-116) 10/26/18 06:20 Ammonia 28 umol/L (11-32) 10/26/18 06:20 Total Protein 6.1 g/dL (6.4-8.2) L 10/26/18 06:20 Albumin 2.9 g/dL (3.4-5.0) L 10/26/18 06:20 TSH 3.56 uIU/mL (0.36-3.74) 10/24/18 17:15 Urine Color Cancelled 10/24/18 16:44 Urine Clarity Cancelled 10/24/18 16:44 Urine pH Cancelled 10/24/18 16:44 Ur Specific [place] Cancelled 10/24/18 16:44 Urine Protein Cancelled 10/24/18 16:44 Urine Ketones Cancelled 10/24/18 16:44 Urine Blood Cancelled 10/24/18 16:44 Urine Nitrite Cancelled 10/24/18 16:44 Urine Bilirubin Cancelled 10/24/18 16:44 Urine Urobilinogen Cancelled 10/24/18 16:44 Ur Leukocyte Esterase Cancelled 10/24/18 16:44 Urine Glucose Cancelled 10/24/18 16:44 Salicylates < 2.8 mg/dL (2.8-20.0) L 10/24/18 17:15 Urine Opiates Screen Cancelled 10/24/18 23:31 Urine Methadone Screen Cancelled 10/24/18 23:31 Acetaminophen < 2 ug/mL (10-30) L 10/24/18 17:15 Ur Barbiturates Screen Cancelled 10/24/18 23:31 Ur Tricyclics Screen Cancelled 10/24/18 23:31 Ur Amphetamines Screen Cancelled 10/24/18 23:31 U Benzodiazepines Scrn Cancelled 10/24/18 23:31 Urine Cocaine Screen Cancelled 10/24/18 23:31 Ur THC Screen Cancelled 10/24/18 23:31 Ethyl Alcohol < 3.0 mg/dL (<3) 10/24/18 17:15
[2018-10-28 11:57] LABS: Iron 43 ug/dL (50-175)
[2018-10-28] MEDS: Ondansetron O.D.T. 4 MG TABEF PO (13:37)
[2018-10-28 16:01] VITALS: BP 108/50; PULSE 55; RESP 18; TEMP 36.7; O2SAT 100
[2018-10-28] MEDS: Mirtazapine 15 MG TAB 7.5 MG PO (17:08)
[2018-10-28] MEDS: Patch Removal 3 EACH TP (19:04)
--- NOTE | 2018-10-28 19:57 | CMPROGNOTE_ITS ---
- If Service Date Differs Date of service: 10/28/18 Time of Service: 19:57 Care Management Progress Note S/O:Tammy was lying in bed during CM visit. She requested that CM make several calls for her. She was unsuccessful in reaching any of her friends but was able to connect with her sister. Later Tammy asked to speak to again. She made accusatory statements about her caregiver, similar to what had been reported and evaluated before and stated that she does not want to return there. will follow up tomorrow with [employer] worker that Tammy had worked with before to determine if this is consistent with past behavior. A: Tammy is a 73 year old female admitted with agitation and failure to manage outpatient. P: Anticipate Tammy will return to [facility] home ([facility] home in [place]) on Monday after being medically cleared. Due to Tammy's behaviors it is important that good limits and boundaries are set by all those who are caring for her while at [facility]. Anticipate Tammy will transport home via private vehicle with [facility]. will continue to tran
[2018-10-28] MEDS: Senna TAB 1 TAB PO (20:17)
--- NOTE | 2018-10-29 01:44 | NUR.NOTE ---
Nursing Note: Pt is cooperative and slowed down in yelling. Refused to get lactulose at HS, had incontinent for both, wears attends. Needs attended and asleep for longer interval this shift.
[2018-10-29 07:29] LABS: Abs Immature Grans 0.01 k/cumm (0.0-0.09); Absolute Basophil Count 0.02 k/cumm (0.0-0.2); Absolute Eosinophil Count 0.31 k/cumm (0.0-0.7); Absolute Lymphocyte Count 0.67 k/cumm (1.2-3.4); Absolute Monocyte Count 0.37 k/cumm (0.11-0.7); Absolute Neutrophil Count 1.62 k/cumm (1.2-6.7); Basophils % 0.7; Eosinophils % 10.3; HCT 35.3 % (36.0-46.0); HGB 11.4 g/dL (12.0-15.5); Immature Grans % 0.3; Lymphocytes % 22.3; Mean Corp. HGB Concentration 32.3 g/dL (32.0-36.0); Mean Corpuscular Hemoglobin 30.6 pg (27.0-33.0); Mean Corpuscular Volume 94.6 fL (80-95); Mean Platelet Volume 10.7 fL (8.0-11.0); Monocytes % 12.3; Neutrophils % 54.1; RBC 3.73 m/cumm (4.00-5.20); RBC Distribution Width 15.1 % (11.7-14.6)
[2018-10-29 07:34] LABS: Anion Gap 7.9 mmol/L (3-11); CO2 29.1 mmol/L (21.0-32.0); CREATININE 1.01 mg/dL (0.55-1.02); Calcium 8.7 mg/dL (8.5-10.1); Chloride 108 mmol/L (98-107); Estimated GFR 54.03 (mL/min/1.73m2); Glucose 117 mg/dL (70-100); Potassium 3.8 mmol/L (3.5-5.1); Sodium 145 mmol/L (136-145)
[2018-10-29 07:48] LABS: Platelet Count 55 x1000/uL (130-400)
[2018-10-29 08:01] VITALS: BP 125/74; PULSE 52; RESP 19; TEMP 36.5; O2SAT 96
[2018-10-29 08:02] LABS: BUN 17 mg/dL (7-18)
[2018-10-29] MEDS: Citalopram 20 MG TAB 40 MG PO (08:44)
[2018-10-29] MEDS: Calcium 600mg/Vit D 200U TAB 1 TAB PO ×2 (08:57→20:32)
[2018-10-29] MEDS: Spironolactone 50 MG TAB 100 MG PO ×2 (08:57→20:32)
[2018-10-29] MEDS: OLANZapine 5 MG TAB PO (08:57)
[2018-10-29] MEDS: Gabapentin 300 MG CAP PO ×3 (08:58→20:32)
[2018-10-29] MEDS: Rifaximin 550 MG TAB PO ×2 (08:58→20:32)
[2018-10-29] MEDS: Propranolol 10 MG TAB PO ×2 (08:58→20:32)
[2018-10-29] MEDS: Torsemide 20 MG TAB 60 MG PO (08:58)
[2018-10-29] MEDS: Lactulose 20 GM/30 ML CUP 45 GM PO (08:58)
[2018-10-29] MEDS: Pantoprazole 40 MG TABCR PO ×2 (08:58→20:32)
[2018-10-29] MEDS: buPROPion-XL 150 MG TABCR PO (08:58)
[2018-10-29] MEDS: busPIRone 5 MG TAB PO ×2 (08:58→20:32)
[2018-10-29] MEDS: Ferrous Sulfate 325 MG TAB PO ×2 (08:58→20:47)
[2018-10-29] MEDS: Nystatin OINT 15 GM TUBE TP ×2 (09:00→20:35)
[2018-10-29] MEDS: Polyethylene Glycol 3350 17 GM PACKET PO (09:00)
[2018-10-29] MEDS: Lidocaine 5% Patch 3 PATCH TP (09:00)
--- NOTE | 2018-10-29 12:48 | PGE_ITS ---
Date of Service Date of service: 10/29/18 Time of Service: 12:48 Assessment and Plan Assessment and plan (1) Compression fracture: Start date: 10/29/18 Start time: 12:51 Status: Acute Assessment and plan: continue low dose tramadol for pain, lidoderm patches, and heating pad. Refusing to get up with PT at this time. Appears to better controlled. Not crying out as much Have psych evaluate for self harm tendencies (2) Chronic low back pain: Start date: 10/29/18 Start time: 12:51 Status: Chronic Assessment and plan: 25 mg tramadol BID restarted for pain with monitoring. Continue heating pad and lidoderm patches. Qualifiers: Back pain laterality: midline Sciatica presence: without sciatica Qualified Code(s): M54.5 - Low back pain; G89.29 - Other chronic pain (3) Right hip pain: Start date: 10/29/18 Start time: 12:51 Status: Acute Assessment and plan: as above (4) Depression: Start date: 10/29/18 Start time: 12:51 Status: Chronic Assessment and plan: Wellbutrin resumed. Olzapine started per previous hospital stay for agitation. On buspar for mood stabilzer, Continue to monitor moods. Qualifiers: Depression Type: major depressive disorder Major depression recurrence: recurrent Active/Remission status: currently active Major depression episode severity: moderate Qualified Code(s): F33.1 - Major depressive disorder, recurrent, moderate (5) Anxiety: Start date: 10/29/18 Start time: 12:52 Status: Chronic Assessment and plan: as above (6) Discharge planning issues: Start date: 10/29/18 Start time: 12:52 Status: Acute Assessment and plan: Question of patient safe to be at a home without mental health treatment as patient likes to self harm when not getting her way. Psych to see patient tomorrow (7) Cirrhosis of liver: Start date: 10/29/18 Start time: 12:53 Status: Acute Assessment and plan: not exacerbated at this time continue rifaximin, refuses doses of lactulose but is having BM (8) Diastolic CHF: Start date: 10/29/18 Start time: 12:55 Status: Chronic Assessment and plan: not exacerbated at this time The above has been discussed with Dr. Bryant who is in agreement. Qualifiers: Heart failure chronicity: chronic Qualified Code(s): I50.32 - Chronic diastolic (congestive) heart failure (9) Hypokalemia: Status: Acute Assessment and plan: Resolved. continue to monitor. Subjective Subjective Patient reports: no new complaints Interval history since last seen: Sleeping. Consult psych as patient has a history of multiple psychiatric stays without diagnosis. Intent to harm self when angry. Exam Const General: no acute distress Nutritional Appearance: obese HENMT Head: normal to inspection and periorbital ecchymosis Face and sinus: normal facial exam Eyes Eyelids: eyelids normal Conjunctivae: conjunctivae normal Pupils: PERRL Neck Neck: normal visual inspection Lymphatic: no lymphadenopathy noted and no lymphedema noted Chest Chest: normal inspection of the chest Resp Effort & Inspection: normal respiratory effort and able to speak in complete sentences Auscultation: clear to auscultation bilaterally Cardio Jugular venous pressure: no JVD Rate: regular rate Rhythm: regular rhythm Heart Sounds: S1 normal, S2 normal and normal, physiologic split S2 GI Inspection: normal to inspection Palpation: soft and no hepatosplenomegaly Auscultation: normal bowel sounds Skin General skin exam: ecchymosis (right periorbital) Lesions: no lesions Neuro General: other (unable to assess at this time as patient is sleepy but arousable) Extrem General: normal to inspection Right lower extremity: no cyanosis Left lower extremity: no cyanosis Objective Objective Clinical Data: Abnormal lab results 10/29/18 10/29/18 Range/Units 07:00 07:00 WBC 3.00 L (4.4-10.8) k/cumm RBC 3.73 L (4.00-5.20) m/cumm Hgb 11.4 L (12.0-15.5) g/dL Hct 35.3 L (36.0-46.0) % RDW 15.1 H (11.7-14.6) % Plt Count 55 L (130-400) x1000/uL Absolute Lymphocytes 0.67 L (1.2-3.4) k/cumm Chloride 108 H (98-107) mmol/L Glucose 117 H (70-100) mg/dL Vital Signs Temperature 36.5 C 10/29/18 08:01 Temperature Source Tympanic 10/29/18 08:01 Pulse 52 L 10/29/18 08:01 Pulse Rhythm Irregular 10/28/18 17:36 Respiratory Rate 19 10/29/18 08:01 Respiratory Effort Non-Labored 10/28/18 17:36 Respiratory Depth Normal 10/28/18 17:36 Respiratory Pattern Normal 10/28/18 17:36 Blood Pressure 125/74 10/29/18 08:01 Blood Pressure Position Supine 10/24/18 16:10 Pulse Oximetry 96 10/29/18 08:01 Oxygen Delivery Method Room Air 10/29/18 08:01 Oxygen Flow Rate 0 10/29/18 08:01 Pain Level 10 10/29/18 08:01 Comment 10/28/18 05:55 Intake & Output 10/28/18 10/29/18 10/29/18 23:59 11:59 23:59 Intake Total 420 / 420 400 / 400 Balance 420 / 420 400 / 400 Intake: Oral 420 / 420 400 / 400 Other: Comment inconintent large amount of urine Stool Size Small Moderate Stool Characteristics Soft Soft Formed Formed Voiding Methods Toilet Diaper Incontinent Laboratory Results WBC 3.00 k/cumm (4.4-10.8) L 10/29/18 07:00 RBC 3.73 m/cumm (4.00-5.20) L 10/29/18 07:00 Hgb 11.4 g/dL (12.0-15.5) L 10/29/18 07:00 Hct 35.3 % (36.0-46.0) L 10/29/18 07:00 MCV 94.6 fL (80-95) 10/29/18 07:00 MCH 30.6 pg (27.0-33.0) 10/29/18 07:00 MCHC 32.3 g/dL (32.0-36.0) 10/29/18 07:00 RDW 15.1 % (11.7-14.6) H 10/29/18 07:00 Plt Count 55 x1000/uL (130-400) L 10/29/18 07:00 MPV 10.7 fL (8.0-11.0) 10/29/18 07:00 Immature Gran % 0.3 10/29/18 07:00 Neutrophils % 54.1 10/29/18 07:00 Lymphocytes % 22.3 10/29/18 07:00 Monocytes % 12.3 10/29/18 07:00 Eosinophils % 10.3 10/29/18 07:00 Basophils % 0.7 10/29/18 07:00 Absolute Neutrophils 1.62 k/cumm (1.2-6.7) 10/29/18 07:00 Absolute Lymphocytes 0.67 k/cumm (1.2-3.4) L 10/29/18 07:00 Absolute Monocytes 0.37 k/cumm (0.11-0.7) 10/29/18 07:00 Absolute Eosinophils 0.31 k/cumm (0.0-0.7) 10/29/18 07:00 Absolute Basophils 0.02 k/cumm (0.0-0.2) 10/29/18 07:00 Differential Comment Rbc morph reviewed 10/28/18 07:00 RBC Morphology See below 10/28/18 07:00 Polychromasia Present 10/28/18 07:00 Anisocytosis 1+ 10/28/18 07:00 Sodium 145 mmol/L (136-145) 10/29/18 07:00 Potassium 3.8 mmol/L (3.5-5.1) 10/29/18 07:00 Chloride 108 mmol/L (98-107) H 10/29/18 07:00 Carbon Dioxide 29.1 mmol/L (21.0-32.0) 10/29/18 07:00 Anion Gap 7.9 mmol/L (3-11) 10/29/18 07:00 BUN 17 mg/dL (7-18) 10/29/18 07:00 Creatinine 1.01 mg/dL (0.55-1.02) 10/29/18 07:00 Estimated GFR/1.73 m2 54.03 (mL/min/1.73m2) 10/29/18 07:00 Glucose 117 mg/dL (70-100) H 10/29/18 07:00 Hemoglobin A1c 5.4 % (4.5-6.2) 10/25/18 07:10 Calcium 8.7 mg/dL (8.5-10.1) 10/29/18 07:00 Magnesium 2.0 mg/dL (1.8-2.4) 10/29/18 07:00 Iron 43 ug/dL (50-175) L 10/28/18 07:00 Total Bilirubin 1.0 mg/dL (0.2-1.0) 10/26/18 06:20 Conjugated Bilirubin 0.36 mg/dL (0.00-0.20) H 10/26/18 06:20 AST 24 U/L (15-37) 10/26/18 06:20 ALT 18 U/L (14-59) 10/26/18 06:20 Alkaline Phosphatase 103 U/L (46-116) 10/26/18 06:20 Ammonia 28 umol/L (11-32) 10/26/18 06:20 Total Protein 6.1 g/dL (6.4-8.2) L 10/26/18 06:20 Albumin 2.9 g/dL (3.4-5.0) L 10/26/18 06:20 TSH 3.56 uIU/mL (0.36-3.74) 10/24/18 17:15 Urine Color Cancelled 10/24/18 16:44 Urine Clarity Cancelled 10/24/18 16:44 Urine pH Cancelled 10/24/18 16:44 Ur Specific [place] Cancelled 10/24/18 16:44 Urine Protein Cancelled 10/24/18 16:44 Urine Ketones Cancelled 10/24/18 16:44 Urine Blood Cancelled 10/24/18 16:44 Urine Nitrite Cancelled 10/24/18 16:44 Urine Bilirubin Cancelled 10/24/18 16:44 Urine Urobilinogen Cancelled 10/24/18 16:44 Ur Leukocyte Esterase Cancelled 10/24/18 16:44 Urine Glucose Cancelled 10/24/18 16:44 Salicylates < 2.8 mg/dL (2.8-20.0) L 10/24/18 17:15 Urine Opiates Screen Cancelled 10/24/18 23:31 Urine Methadone Screen Cancelled 10/24/18 23:31 Acetaminophen < 2 ug/mL (10-30) L 10/24/18 17:15 Ur Barbiturates Screen Cancelled 10/24/18 23:31 Ur Tricyclics Screen Cancelled 10/24/18 23:31 Ur Amphetamines Screen Cancelled 10/24/18 23:31 U Benzodiazepines Scrn Cancelled 10/24/18 23:31 Urine Cocaine Screen Cancelled 10/24/18 23:31 Ur THC Screen Cancelled 10/24/18 23:31 Ethyl Alcohol < 3.0 mg/dL (<3) 10/24/18 17:15
--- NOTE | 2018-10-29 14:54 | CMPROGNOTE_ITS ---
- If Service Date Differs Date of service: 10/29/18 Time of Service: 14:54 Care Management Progress Note S/O: Tammy was sleeping when CM went in to meet with her. CM called and spoke with Tammy's previous SPORTS BETTING MANAGER case managers, Roselia, and discussed the plan that was in place prior to Tammy leaving [facility]. SPORTS BETTING MANAGER services were interrupted by a four month stay at [facility]. Upon discharge to an [facility] home in [place], [place], organized through [facility] Support Services (SS), referrals were sent to [facility] for new SPORTS BETTING MANAGER services which have not materialized. A supervisor transferring and boxing to supervisor transferring and boxing meet was coordinated by Roselia in order to facilitate transfer with resumption of services. CM will continue to follow and support discharge planning. A: Tammy is a 73 year old female admitted with agitation and failure to manage outpatient. P: Anticipate Tammy will return to [facility] ([facility] in [place]) on Monday after being medically cleared. Anticipate resumption of HH services with new SALES AND LEASING CONSULTANT. Due to Tammy's behaviors it is important that good limits and boundaries are set by all those who are caring for her while at [facility]. Anticipate Tammy will transport home via private vehicle with [facility]. CM will continue to follow.
--- NOTE | 2018-10-29 14:54 | PDOC.CMPRO ---
- If Service Date Differs Date of service: 10/29/18 Time of Service: 14:54 Care Management Progress Note S/O: Tammy was sleeping when CM went in to meet with her. CM called and spoke with Tammy's previous SHAMPOO ASSISTANT piano case maker, Roselia, and discussed the plan that was in place prior to Tammy leaving [facility]. SHAMPOO ASSISTANT services were interrupted by a four month stay at [facility]. Upon discharge to an [facility] home in [place], [place], organized through [facility] Support Services (SS), referrals were sent to [facility] for new SHAMPOO ASSISTANT services which have not materialized. A drilling supervisor to drilling supervisor meet was coordinated by Roselia in order to facilitate transfer with resumption of services. CM will continue to follow and support discharge planning. A: Tammy is a 73 year old female admitted with agitation and failure to manage outpatient. P: Anticipate Tammy will return to [facility] ([facility] in [place]) on Monday after being medically cleared. Anticipate resumption of HH services with new INSIDE SALES ACCOUNT EXECUTIVE. Due to Tammy's behaviors it is important that good limits and boundaries are set by all those who are caring for her while at [facility]. Anticipate Tammy will transport home via private vehicle with [facility]. CM will continue to follow.
[2018-10-29 17:10] VITALS: BP 114/58; PULSE 87; RESP 20; TEMP 36; O2SAT 99
[2018-10-29] MEDS: Patch Removal 3 EACH TP (18:32)
[2018-10-29] MEDS: Senna TAB 1 TAB PO (20:46)
[2018-10-29] MEDS: traMADol 50 MG TAB 25 MG PO (20:51)
[2018-10-30 07:01] LABS: BUN 18 mg/dL (7-18); CREATININE 1.01 mg/dL (0.55-1.02); Calcium 8.6 mg/dL (8.5-10.1); Chloride 105 mmol/L (98-107); Estimated GFR 54.03 (mL/min/1.73m2); Glucose 117 mg/dL (70-100); Potassium 3.8 mmol/L (3.5-5.1); Sodium 140 mmol/L (136-145)
[2018-10-30 07:03] LABS: Abs Immature Grans 0.01 k/cumm (0.0-0.09); Absolute Basophil Count 0.04 k/cumm (0.0-0.2); Absolute Eosinophil Count 0.39 k/cumm (0.0-0.7); Absolute Lymphocyte Count 0.82 k/cumm (1.2-3.4); Absolute Monocyte Count 0.36 k/cumm (0.11-0.7); Absolute Neutrophil Count 1.38 k/cumm (1.2-6.7); Basophils % 1.3; HCT 34.7 % (36.0-46.0); Immature Grans % 0.3; Lymphocytes % 27.3; Mean Corp. HGB Concentration 31.7 g/dL (32.0-36.0); Mean Corpuscular Hemoglobin 30.1 pg (27.0-33.0); Mean Corpuscular Volume 95.1 fL (80-95); Mean Platelet Volume 10.3 fL (8.0-11.0); Neutrophils % 46.1; RBC 3.65 m/cumm (4.00-5.20)
[2018-10-30 07:14] LABS: Anion Gap 6.4 mmol/L (3-11); CO2 28.6 mmol/L (21.0-32.0)
[2018-10-30 07:42] LABS: Platelet Count 74 x1000/uL (130-400)
[2018-10-30 07:43] LABS: Diff Comment Agrees w/ Instrument; RBC Morphology Normal
[2018-10-30] MEDS: Lidocaine 5% Patch 3 PATCH TP (08:18)
[2018-10-30 08:40] VITALS: BP 127/76; PULSE 49; RESP 17; TEMP 36.6; O2SAT 98
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
[2018-10-30] MEDS: Lactulose 20 GM/30 ML CUP 45 GM PO ×3 (09:07→17:15)
[2018-10-30] MEDS: Spironolactone 50 MG TAB 100 MG PO ×2 (09:08→20:00)
[2018-10-30] MEDS: busPIRone 5 MG TAB PO ×2 (09:08→20:02)
[2018-10-30] MEDS: buPROPion-XL 150 MG TABCR PO (09:08)
[2018-10-30] MEDS: Propranolol 10 MG TAB PO ×2 (09:08→20:01)
[2018-10-30] MEDS: Citalopram 20 MG TAB 40 MG PO (09:08)
[2018-10-30] MEDS: Gabapentin 300 MG CAP PO ×3 (09:08→20:01)
[2018-10-30] MEDS: Ferrous Sulfate 325 MG TAB PO ×2 (09:09→20:12)
[2018-10-30] MEDS: Torsemide 20 MG TAB 60 MG PO (09:09)
[2018-10-30] MEDS: Calcium 600mg/Vit D 200U TAB 1 TAB PO ×2 (09:09→20:01)
[2018-10-30] MEDS: traMADol 50 MG TAB 25 MG PO ×2 (09:09→20:52)
[2018-10-30] MEDS: OLANZapine 5 MG TAB PO (09:09)
[2018-10-30] MEDS: Rifaximin 550 MG TAB PO ×2 (09:09→20:02)
[2018-10-30] MEDS: Pantoprazole 40 MG TABCR PO ×2 (09:09→20:01)
[2018-10-30] MEDS: Nystatin OINT 15 GM TUBE TP ×2 (09:10→20:13)
[2018-10-30 09:56] LABS: Transferrin 206 mg/dL (201-352)
--- NOTE | 2018-10-30 14:16 | NUR.NOTE ---
Nursing Note: 10/30/18 1414 poke with [employer] uniform patrol police officer, a 911 call was placed from [phone]. Spoke with patient, she stated she placed the call, but wasn't calling them, I spoke was calling my friend When asked if she was having an emergency, pt stated no. When asked if there was anything else she needed, pt stated no. Pt in bed eating oranges at this time, no apparent distress noted.
[2018-10-30 15:24] VITALS: BP 100/66; PULSE 54; RESP 18; TEMP 37; O2SAT 97
--- NOTE | 2018-10-30 16:25 | CHAPLAIN ---
Michelle Velasquez RN, left me a message saying Tammy would like a Bible. I took one up to her. She stated that she was having a meeting today with the provider from the [facility] home where Tammy had been staying, but she said she didn't want to go back there. She also didn't know what time the meeting was. She became teary talking about not going back. At times she mumbled and I didn't understand all she was saying. I told her I would let her child daycare worker know that Tammy wanted to know that time the meeting was scheduled for. Tammy told me about her cat and showed be a photo of him.
--- NOTE | 2018-10-30 17:03 | PGE_ITS ---
Date of Service Date of service: 10/30/18 Time of Service: 17:03 Assessment and Plan Assessment and plan (1) Compression fracture: Status: Acute Assessment and plan: Noted on CT scan at the time of admission at the level of L2. Pain appears to be under control. Continue low-dose tramadol for pain, Lidoderm patches and heating pad. (2) Chronic low back pain: Status: Chronic Assessment and plan: CT at the time of her admission also shows moderate spinal stenosis at L4-L5, mild spinal stenosis at L3-L4. Continue pain control as above. Qualifiers: Back pain laterality: midline Sciatica presence: without sciatica Qualified Code(s): M54.5 - Low back pain; G89.29 - Other chronic pain (3) Right hip pain: Status: Acute Assessment and plan: Continue pain control as above. (4) Depression: Status: Chronic Assessment and plan: Review of the medication administration [place] [facility] [place] not include Zyprexa, discontinue the Zyprexa. Continue Wellbutrin, BuSpar and as needed Ativan. Qualifiers: Depression Type: major depressive disorder Major depression recurrence: recurrent Active/Remission status: currently active Major depression episode severity: moderate Qualified Code(s): F33.1 - Major depressive disorder, recurrent, moderate (5) Anxiety: Status: Chronic Assessment and plan: As above. (6) Cirrhosis of liver: Status: Acute Assessment and plan: Appears quiescent at this time. Continue rifaximin, continue to offer lactulose. (7) Diastolic CHF: Status: Chronic Assessment and plan: Not in acute exacerbation. Continue torsemide. Qualifiers: Heart failure chronicity: chronic Qualified Code(s): I50.32 - Chronic diastolic (congestive) heart failure (8) Type 2 diabetes mellitus: Status: Chronic Assessment and plan: Does not appear to be on insulin or oral regimen for diabetes. Morning glucose has been in the low 100s. Qualifiers: Diabetes mellitus assistant terminal manager insulin use: without assistant terminal manager use Diabetes mellitus complication status: without complication Qualified Code(s): E11.9 - Type 2 diabetes mellitus without complications (9) Discharge planning issues: Status: Acute Assessment and plan: She is a full code. She has recently been placed in the area an adult family [facility]. Care management is working to get her connected with community resources so she can be successful at this home. She is likely for discharge tomorrow. This case was discussed with Dr. Bryant who is in agreement. Subjective Subjective Interval history since last seen: Tammy Farr denies shortness of breath, coughing, wheezing, chest pain/pressure, palpitations. She is eating and drinking and tolerating her diet, she denies nausea, vomiting or diarrhea. She is verbalizing that she does not want to be discharged back to the [facility] home where she has recently been placed. Exam Narrative Exam Narrative: General: Sitting up in bed, awake and alert, answering questions appropriately. Changing the subject frequently. HEENT: Area of ecchymosis to her right forehead, over her right eye. Glasses on, pupils equal and round, EOMI, mucous membranes moist. Neck: supple. Respiratory: Respirations even and unlabored, lung sounds clear to auscultation bilaterally. Cardiovascular: regular rate and rhythm, no murmur appreciated. GI: normal bowel sounds throughout, abdomen soft, nondistended, nontender on plapation. Extremities: No clubbing, cyanosis or edema. Objective Objective Clinical Data: Abnormal lab results 10/30/18 10/30/18 Range/Units 06:05 06:05 WBC 3.00 L (4.4-10.8) k/cumm RBC 3.65 L (4.00-5.20) m/cumm Hgb 11.0 L (12.0-15.5) g/dL Hct 34.7 L (36.0-46.0) % MCV 95.1 H (80-95) fL MCHC 31.7 L (32.0-36.0) g/dL RDW 15.0 H (11.7-14.6) % Plt Count 74 L (130-400) x1000/uL Absolute Lymphocytes 0.82 L (1.2-3.4) k/cumm Glucose 117 H (70-100) mg/dL Vital Signs Temperature 37.0 C 10/30/18 15:24 Temperature Source Tympanic 10/30/18 15:24 Pulse 54 L 10/30/18 15:24 Pulse Rhythm Irregular 10/30/18 09:40 Respiratory Rate 18 10/30/18 15:24 Respiratory Effort Non-Labored 10/30/18 09:40 Respiratory Depth Normal 10/30/18 09:40 Respiratory Pattern Normal 10/30/18 09:40 Blood Pressure 100/66 10/30/18 15:24 Blood Pressure Position Supine 10/24/18 16:10 Pulse Oximetry 97 10/30/18 15:24 Oxygen Delivery Method Room Air 10/30/18 15:24 Oxygen Flow Rate 0 10/30/18 15:24 Pain Level 10 10/30/18 09:09 Comment 10/28/18 05:55 Intake & Output 10/29/18 10/30/18 10/30/18 23:59 11:59 23:59 Intake Total 720 / 960 240 / 960 Balance 720 / 960 240 / 960 Intake: Oral 720 / 960 240 / 960 Other: Comment patient incontient Stool Size Large Large Stool Characteristics Soft Soft Formed Voiding Methods Diaper Diaper Incontinent Incontinent Laboratory Results WBC 3.00 k/cumm (4.4-10.8) L 10/30/18 06:05 RBC 3.65 m/cumm (4.00-5.20) L 10/30/18 06:05 Hgb 11.0 g/dL (12.0-15.5) L 10/30/18 06:05 Hct 34.7 % (36.0-46.0) L 10/30/18 06:05 MCV 95.1 fL (80-95) H 10/30/18 06:05 MCH 30.1 pg (27.0-33.0) 10/30/18 06:05 MCHC 31.7 g/dL (32.0-36.0) L 10/30/18 06:05 RDW 15.0 % (11.7-14.6) H 10/30/18 06:05 Plt Count 74 x1000/uL (130-400) L 10/30/18 06:05 MPV 10.3 fL (8.0-11.0) 10/30/18 06:05 Immature Gran % 0.3 10/30/18 06:05 Neutrophils % 46.1 10/30/18 06:05 Lymphocytes % 27.3 10/30/18 06:05 Monocytes % 12.0 10/30/18 06:05 Eosinophils % 13.0 10/30/18 06:05 Basophils % 1.3 10/30/18 06:05 Absolute Neutrophils 1.38 k/cumm (1.2-6.7) 10/30/18 06:05 Absolute Lymphocytes 0.82 k/cumm (1.2-3.4) L 10/30/18 06:05 Absolute Monocytes 0.36 k/cumm (0.11-0.7) 10/30/18 06:05 Absolute Eosinophils 0.39 k/cumm (0.0-0.7) 10/30/18 06:05 Absolute Basophils 0.04 k/cumm (0.0-0.2) 10/30/18 06:05 Differential Comment Agrees w/ instrument 10/30/18 06:05 RBC Morphology Normal 10/30/18 06:05 Polychromasia Present 10/28/18 07:00 Anisocytosis 1+ 10/28/18 07:00 Sodium 140 mmol/L (136-145) 10/30/18 06:05 Potassium 3.8 mmol/L (3.5-5.1) 10/30/18 06:05 Chloride 105 mmol/L (98-107) 10/30/18 06:05 Carbon Dioxide 28.6 mmol/L (21.0-32.0) 10/30/18 06:05 Anion Gap 6.4 mmol/L (3-11) 10/30/18 06:05 BUN 18 mg/dL (7-18) 10/30/18 06:05 Creatinine 1.01 mg/dL (0.55-1.02) 10/30/18 06:05 Estimated GFR/1.73 m2 54.03 (mL/min/1.73m2) 10/30/18 06:05 Glucose 117 mg/dL (70-100) H 10/30/18 06:05 Hemoglobin A1c 5.4 % (4.5-6.2) 10/25/18 07:10 Calcium 8.6 mg/dL (8.5-10.1) 10/30/18 06:05 Magnesium 2.0 mg/dL (1.8-2.4) 10/30/18 06:05 Iron 43 ug/dL (50-175) L 10/28/18 07:00 Transferrin 206 mg/dL (201-352) 10/26/18 06:20 Total Bilirubin 1.0 mg/dL (0.2-1.0) 10/26/18 06:20 Conjugated Bilirubin 0.36 mg/dL (0.00-0.20) H 10/26/18 06:20 AST 24 U/L (15-37) 10/26/18 06:20 ALT 18 U/L (14-59) 10/26/18 06:20 Alkaline Phosphatase 103 U/L (46-116) 10/26/18 06:20 Ammonia 28 umol/L (11-32) 10/26/18 06:20 Total Protein 6.1 g/dL (6.4-8.2) L 10/26/18 06:20 Albumin 2.9 g/dL (3.4-5.0) L 10/26/18 06:20 TSH 3.56 uIU/mL (0.36-3.74) 10/24/18 17:15 Urine Color Cancelled 10/24/18 16:44 Urine Clarity Cancelled 10/24/18 16:44 Urine pH Cancelled 10/24/18 16:44 Ur Specific [place] Cancelled 10/24/18 16:44 Urine Protein Cancelled 10/24/18 16:44 Urine Ketones Cancelled 10/24/18 16:44 Urine Blood Cancelled 10/24/18 16:44 Urine Nitrite Cancelled 10/24/18 16:44 Urine Bilirubin Cancelled 10/24/18 16:44 Urine Urobilinogen Cancelled 10/24/18 16:44 Ur Leukocyte Esterase Cancelled 10/24/18 16:44 Urine Glucose Cancelled 10/24/18 16:44 Salicylates < 2.8 mg/dL (2.8-20.0) L 10/24/18 17:15 Urine Opiates Screen Cancelled 10/24/18 23:31 Urine Methadone Screen Cancelled 10/24/18 23:31 Acetaminophen < 2 ug/mL (10-30) L 10/24/18 17:15 Ur Barbiturates Screen Cancelled 10/24/18 23:31 Ur Tricyclics Screen Cancelled 10/24/18 23:31 Ur Amphetamines Screen Cancelled 10/24/18 23:31 U Benzodiazepines Scrn Cancelled 10/24/18 23:31 Urine Cocaine Screen Cancelled 10/24/18 23:31 Ur THC Screen Cancelled 10/24/18 23:31 Ethyl Alcohol < 3.0 mg/dL (<3) 10/24/18 17:15
--- NOTE | 2018-10-30 18:44 | PDOC.CMPRO ---
- If Service Date Differs Date of service: 10/30/18 Time of Service: 18:44 Care Management Progress Note S/O: Tammy was lying in bed when CM met with her. She was agreeable to talk with CM, although had moments of weeping and/or yelling. CM discussed in length that Tammy is here for an acute stay and that she cannot stay at the hospital much longer, as she will be medically ready to leave. CM discussed her concerns about returning to the [facility] home with Dede, her home care provider. Tammy stated that she wanted a TV in her room and that she would like her tablet returned to her. CM discussed the concerns with Dede, who stated that there is a TV in her room, and she wants for nothing at her house. We discussed the plans to bring Tammy out into the community to acclimate her to this new area. CM also coordinated new adult outpatient services through [facility] for individual counseling as well as psychiatry at the [place], [place] office. CM will continue to support patient and caregivers to develop a safe discharge plan. A: Tammy is a 73 year old female admitted with agitation and failure to manage outpatient. P: Anticipate Tammy will return to [facility] home (Dede's home in [place]) on Monday after being medically cleared. Anticipate resumption of services with new [employer] [employer]. Follow up with PCP as well as new adult outpatient services through [facility] for individual counseling and psychiatry. Due to Tammy's behaviors it is important that good limits and boundaries are set by all those who are caring for her while at [facility]. Anticipate Tammy will transport home via private vehicle with Dede. CM will continue to follow.
[2018-10-30] MEDS: Patch Removal 3 EACH TP (18:50)
[2018-10-30] MEDS: Senna TAB 1 TAB PO (20:11)
[2018-10-30] MEDS: LORazepam 0.5 MG TAB PO (20:52)
[2018-10-31 07:16] LABS: Abs Immature Grans 0.01 k/cumm (0.0-0.09); Absolute Basophil Count 0.01 k/cumm (0.0-0.2); Absolute Eosinophil Count 0.31 k/cumm (0.0-0.7); Absolute Lymphocyte Count 0.69 k/cumm (1.2-3.4); Absolute Monocyte Count 0.51 k/cumm (0.11-0.7); Absolute Neutrophil Count 2.11 k/cumm (1.2-6.7); Basophils % 0.3; Eosinophils % 8.5; HCT 32.9 % (36.0-46.0); HGB 10.7 g/dL (12.0-15.5); Immature Grans % 0.3; Mean Corp. HGB Concentration 32.5 g/dL (32.0-36.0); Mean Corpuscular Hemoglobin 30.7 pg (27.0-33.0); Mean Corpuscular Volume 94.3 fL (80-95); Mean Platelet Volume 10.6 fL (8.0-11.0); Neutrophils % 57.9; RBC 3.49 m/cumm (4.00-5.20); RBC Distribution Width 14.9 % (11.7-14.6); White Blood Cell Count 3.64 k/cumm (4.4-10.8)
[2018-10-31 07:43] LABS: Anion Gap 7.5 mmol/L (3-11); BUN 19 mg/dL (7-18); CO2 28.5 mmol/L (21.0-32.0); CREATININE 1.01 mg/dL (0.55-1.02); Calcium 8.8 mg/dL (8.5-10.1); Chloride 103 mmol/L (98-107); Estimated GFR 54.03 (mL/min/1.73m2); Glucose 160 mg/dL (70-100); Magnesium 2.1 mg/dL (1.8-2.4); Potassium 4.2 mmol/L (3.5-5.1); Sodium 139 mmol/L (136-145)
[2018-10-31 07:53] LABS: Platelet Count 67 x1000/uL (130-400)
[2018-10-31 07:54] LABS: Anisocytosis 1+; Diff Comment PLT Morph Reviewed; Polychromasia Present
[2018-10-31 08:08] VITALS: BP 128/71; PULSE 71; RESP 19; TEMP 36.6; O2SAT 98
[2018-10-31] MEDS: Lidocaine 5% Patch 3 PATCH TP (09:36)
[2018-10-31] MEDS: Lactulose 20 GM/30 ML CUP 45 GM PO (09:36)
[2018-10-31] MEDS: Propranolol 10 MG TAB PO (09:37)
[2018-10-31] MEDS: Citalopram 20 MG TAB 40 MG PO (09:37)
[2018-10-31] MEDS: Pantoprazole 40 MG TABCR PO (09:37)
[2018-10-31] MEDS: Polyethylene Glycol 3350 17 GM PACKET PO (09:37)
[2018-10-31] MEDS: Ferrous Sulfate 325 MG TAB PO (09:37)
[2018-10-31] MEDS: Calcium 600mg/Vit D 200U TAB 1 TAB PO (09:37)
[2018-10-31] MEDS: Spironolactone 50 MG TAB 100 MG PO (09:37)
[2018-10-31] MEDS: Torsemide 20 MG TAB 60 MG PO (09:37)
[2018-10-31] MEDS: Rifaximin 550 MG TAB PO (09:38)
[2018-10-31] MEDS: Nystatin OINT 15 GM TUBE TP (09:38)
[2018-10-31] MEDS: buPROPion-XL 150 MG TABCR PO (09:38)
[2018-10-31] MEDS: Gabapentin 300 MG CAP PO (09:38)
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
--- NOTE | 2018-10-31 16:18 | PDOC.CMDIS ---
- If Service Date Differs Date of service: 10/31/18 Time of Service: 16:18 LACE Index Scoring Tool - Questions: Length of Stay (in days): 4 - 6 Acuity (Admit via E.D.?): Yes E.D. Visits: 1 - Answers: Total Score: 8 Risk of Readmission: Low Risk Care Management Discharge Reason for Hospitalization: Agitation, failure to manage outpatient Discharge Plan: Tammy will return to [facility] home via private vehicle driven by Chasity, her caser shoe parts with [facility]. Dede, her home care provider was also present prior to discharge in order to review the plan. Tammy will resume HH VNA, PT, OT, with new orders for HH FINISH PAINTER. She will also visit [facility] twice a week. She will follow up with PCP as well as new adult outpatient services through [facility] for individual counseling and psychiatry. Patient/Family Education Needs: Review discharge instructions regarding medication and activity levels, discussion of self care needs including ask me three Services Needed at Discharge: Day Care, Home Health Care Services
== END 2018-10-31 14:06 | disposition home health service (06) | DRG 884 ==
LOC: ER 20:36 → MS 21:01
PROVIDERS: Nurse Practitioner Family; Admitting Provider Internal Medicine; Emergency Provider Physician Assistant; PCP Internal Medicine; Visit Provider Internal Medicine
DX: R45.1 Restlessness and agitation (principal); S32.020A Wedge compression fracture of second lumbar vertebra, initial encounter for closed fracture; D61.818 Other pancytopenia; Z68.41 Body mass index [BMI] 40.0-44.9, adult; I85.10 Secondary esophageal varices without bleeding; I50.32 Chronic diastolic (congestive) heart failure; F41.8 Other specified anxiety disorders; M54.5 Low back pain; M25.551 Pain in right hip; E87.6 Hypokalemia; W19.XXXA Unspecified fall, initial encounter; E11.9 Type 2 diabetes mellitus without complications; M48.061 Spinal stenosis, lumbar region without neurogenic claudication; G89.29 Other chronic pain; D46.9 Myelodysplastic syndrome, unspecified; E66.01 Morbid (severe) obesity due to excess calories; K74.60 Unspecified cirrhosis of liver; G47.30 Sleep apnea, unspecified; Z04.71 Encounter for examination and observation following alleged adult physical abuse
CPT/HCPCS: 36415; 73521; 80048; 80053; 80076; 80307; 99220; 99232; 99233; 99239; 99255; 99285; 70450; 72020; 72131; 80320; 80329; 81003; 82140; 83036; 83540; 83735; 84443; 84466; 85025; 99284; G0378; J3490

== ENCOUNTER 2018-12-11 16:43 | Inpatient (IN) | payer MEDICARE, MEDICAID, SELFPAY ==
[2018-12-11] VITALS (75 sets, daily range): BP systolic 80–110; BP diastolic 27–70; PULSE 72–87; RESP 10–20; TEMP 36.3–36.6; O2SAT 86–95
--- NOTE | 2018-12-11 16:46 | ED.GENADUL_ITS ---
Discharge Plan Disposition Patient Disposition: [facility] INPATIENT Discharge Details Chief Complaint: GenMedical Primary Care Provider: Zulay Barth ED Provider: Tonia Hollins Home Meds and New Rx's Prescriptions: No Action acetaminophen [Tylenol] 325 mg Tablet 650 mg PO PRN PRNRF: 0 tramadol 50 mg Tablet 1 mg PO BID PRN RF: 0 polyethylene glycol 3350 17 gram Powder In Packet 17 g PO DAILY RF: 0 hydroxyzine HCl 50 mg Tablet 50 mg PO Q6H PRNRF: 0 gabapentin 300 mg Capsule 300 mg PO TID RF: 0 ondansetron 4 mg Tablet,Disintegrating 4 mg Q4H PRN PRNRF: 0 sennosides [senna] 8.6 mg Tablet 8.6 mg PO HS RF: 0 citalopram 40 mg Tablet 40 mg DAILY RF: 0 nystatin 100,000 unit/gram Ointment See Rx Instructions .ROUTE .COMPLEX RF: 0 triamcinolone acetonide 0.1 % Cream See Rx Instructions .ROUTE .COMPLEX RF: 0 pantoprazole 40 mg Tablet,Delayed Release (Dr/Ec) 40 mg PO BID RF: 0 bupropion HCl 150 mg Tablet Extended Release 24 Hr 150 mg PO DAILY RF: 0 ferrous sulfate 324 mg (65 mg iron) Tablet,Delayed Release (Dr/Ec) 324 mg PO DAILY RF: 0 Xifaxan 550 mg Tablet 550 mg PO BID RF: 0 lactulose 20 gram/30 mL Solution 20 g PO BID RF: 0 lorazepam 0.5 mg Tablet 0.5 mg PO TID PRN PRNQty: 0 RF: 0 lorazepam 0.5 mg tablet 0.5 mg PO TID PRN (Reason: agitation) Qty: 15 RF: 0 spironolactone 50 mg tablet 50 mg PO BID Qty: 60 RF: 0 torsemide 100 mg tablet 100 mg PO DAILY Qty: 30 RF: 0 calcium carbonate-vitamin D3 600 mg calcium- 200 unit capsule 1 cap PO BID Qty: 60 RF: 0 lidocaine 4 % adhesive patch,medicated 1 patch TP DAILY PRN (Reason: pain) Qty: 30 RF: 0 Medical Decision Making Patient presents today, brought in via EMS with c/c of AMS, bruising and falling . Patient is having difficulty with articulation, is frequently slurring her words making it difficult to understand. Patient resides with a home care provider who also has an associate that works with her to care for the patient. The primary daycare manager is able to give a detailed history. She reports that over the past few weeks, the patient has been wanting to be admitted. Patient has history of frequent visits to the hospital, particularly to [facility], where she often wants to be admitted for full care. She reports over the past few weeks, she has been purposefully falling to the ground. The home care provider tries to get her up in about every day and the patient gets upset by this. Wants to be able to stay in bed and have full care. States that when ambulating with home care provider and her assistant inventory manager, the patient will randomly report I am going to fall and per her arms up in the air with a dramatic fall after. She states that while she has not suffered any serious injuries, she has a large amount of bruising associated with this. Patient is not anticoagulated. Medication list is unable to be completed at this time as the home care provider did not bring her list nor will be able to get this from the pharmacy. Patient is not able to remember her medications. Primary care physician is in [facility]. She reports that for the past week, she has been refusing to get out of bed. Began noticing her to be more acutely ill and have unusual coloring over the past few days. States that last night she began noticing her slurred speech this is been intermittent throughout the course of time. Denies any recent head trauma. No fevers or chills. Patient does not feel short of breath. She denies chest pain. At this point, patient is endorsing no discomfort. Home care provider is concerned that she has not been taking in solid foods. She does report that she has been able to keep the patient hydrated. Patient is notably jaundiced. She is obese. She does appear acute on chronically ill. I did see the patient historically, patient was admitted by myself and October of this year for anxiety. At that time, the patient was acting up frequently with her home caregiver and felt she was unsafe to be discharged home at that time. She appears much more acutely ill. Patient is slurring her speech. She has generalized weakness in all of her extremities. She is able to move her hands and her feet when instructed to but is unable to lift the arm straight or lift the leg up off the bed. She has large areas of bruising counting in the left side, consistent with the homecare report of frequent falls. She does not have any chest discomfort with palpation, abdomen is benign. She is noted to have 1+ pitting edema bilaterally lower extremities. I am primarily concerned for liver dysfunction at this time given the patient's appearance. With the edema, hesitant to give her much fluids but she does appear quite dry as well. Will give 500 cc bolus. REviewed the labs, patient is uremic with a BUN of 109, has hyperkalemia with potassium of 6.1. She is receiving fluids. Creatinine is elevated at 2.8, and she was here recently creatinine averaged 1. Magnesium is elevated at 3.3, alk phos is 162, CK 350, troponin is normal, BNP elevated 2.64, albumin is 1.8, calcium is 8, sodium 129. Patient is anemic with a hemoglobin of 8.6 which is usually low for the patient. Her white count is elevated at 11.14. Urinalysis is significant for small amount of bilirubin. Negative ketones, negative nitrite, negative leukocyte esterase. UDS negative, negative for alcohol. ECG was reviewed by Dr. Wilkins. Patient is in NSR with rate 65, no acute ischemic changes, no peaked T waves or findings indicitive of hyperkalemia. Will continue to hydrate the patient. Plan for CT for AMS and slurred speech. Home care provider reports that the change in speech has been coming on over the past 24 hours. However, she states that last night, when she asked the patient to speak more clearly, the patient was able to clearly yell prophanities at her. Patient's mentation seems to be clearing slightly. Again, she is fixating on food. This is typical compared to her recent admission here. She is frequently asking for ice cream. However, as her mentation seems to wax and wane, I am concerned about potential aspiration and would like to hold off on p.o. hydration at this time. She will continue to receive slow hydration although I am concerned that there will need to be careful balance between hydrating the patient diuresing her and will discuss this further with hospitalist. CXR reviewed by radiologist: FINDINGS: Lungs: Bilateral perihilar infiltrates extending to the periphery of the lung. Consolidation in the perihilar regions and lung bases. Pleural space: Unremarkable. No pleural effusion. No pneumothorax. Heart/Mediastinum: Hypoventilation. Cardiomegaly. Bones/joints: Unremarkable for patient's age. IMPRESSION: 1. Bilateral pneumonia. 2. Cardiomegaly. Will begin patient on antibiotics. Patient has a multitude of allergies. She does appear to have acute liver and kidney disease, concerned about dosing. Plan to give 750 levofloxacin. Contacted by [facility] radiology regarding patients head CT. They advised possible hematoma vs. motion artifact. Also noted fluid in mastoid air cell and mass in nasal pharynx that was also noted previously Requested consult with [facility] neurology to review imaging and discuss. FINDINGS: Brain: Increased left frontal parietal parenchymal density series 2 image [id number] which may represent a contusion or hemorrhage versus artifact. Recommend repeating CT when patient is able to cooperate with the exam or obtain a MRI for earlier evaluation. Motion artifact degrades image quality of the cortical sulci of the parietal regions bilaterally. Ventricles: Unremarkable. No ventriculomegaly. Bones/joints: Hyperostosis frontalis interna. Sinuses: Visualized sinuses are unremarkable. No fluid levels. Mastoid air cells: Fluid in the inferior mastoid air cells bilaterally. Motion artifact degrades image quality. Soft tissues: Unremarkable. Nasopharynx: Debris, mucous, or mass in the left nasopharynx similar to the prior study. IMPRESSION: 1. Increased parenchymal density involving the left frontal parietal region. The findings may represent hemorrhage versus artifact from motion. Recommend repeating study or obtaining an MRI for further evaluation. 2. Debris, mucous, or mass in the left nasopharynx similar to the prior study. 3. Fluid in the mastoid air cells bilaterally. Consulted with Dr. Betancur neurosurgery at [facility], she advised repeating scan tomorrow but advised that this does not appear consistent with hematoma. They feel that htis is more consistent with artifact. Discussed the case with Dr. Pineda who accepts the patient for admission with uremia, pneumonia, hypokalemia, JHON, acute liver disease, CHF exacerbation. HPI General Mode of arrival: EMS . Date/Time Provider Initiated Documentation: 12/11/18 16:46 . Limitations to Documentation: altered mental status . Information obtained by: patient and RN notes reviewed . HPI Narrative: Patient is a 73 year old female wit history of hyperkalemia, diastolic CHF, type 2 diabetes, depression, anxiety, chronic back pain, cirrhosis, sleep apnea, from a cytopenia presenting today, brought in via EMS, with complaints of fall at home. Patient is slurring her speech making history difficult to obtain. However, she is frequently saying that she wants new housing, to be admitted, would like ice cream and bryn gal. Otherwise, patient is fairly poor historian and is not able to tell me about her presenting illness. History was obtained from home care provider who does seem very attentive and concerned that the patient. She also reports that she has an assistant inventory manager at home given her recent decline and frequent falls. Related Data Home Medications Medication Instructions Recorded Confirmed Xifaxan 550 mg PO BID 10/24/18 10/24/18 acetaminophen [Tylenol] 650 mg PO PRN PRN 10/24/18 10/24/18 bupropion HCl 150 mg PO DAILY 10/24/18 10/24/18 citalopram 40 mg DAILY 10/24/18 10/24/18 ferrous sulfate 324 mg PO DAILY 10/24/18 10/24/18 gabapentin 300 mg PO TID 10/24/18 10/24/18 hydroxyzine HCl 50 mg PO Q6H PRN 10/24/18 10/24/18 lactulose 20 g PO BID 10/24/18 10/24/18 nystatin See Rx Instructions .ROUTE .COMPLEX 10/24/18 10/24/18 ondansetron 4 mg Q4H PRN PRN 10/24/18 10/24/18 pantoprazole 40 mg PO BID 10/24/18 10/24/18 polyethylene glycol 3350 17 g PO DAILY 10/24/18 10/24/18 sennosides [senna] 8.6 mg PO HS 10/24/18 10/24/18 tramadol 1 mg PO BID PRN 10/24/18 10/24/18 triamcinolone acetonide See Rx Instructions .ROUTE .COMPLEX 10/24/18 10/24/18 calcium carbonate-vitamin D3 1 cap PO BID #60 cap 10/31/18 lidocaine 1 patch TP DAILY PRN #30 each 10/31/18 lorazepam 0.5 mg PO TID PRN #15 tab 10/31/18 lorazepam 0.5 mg PO TID PRN PRN #0 tab 10/31/18 10/24/18 spironolactone 50 mg PO BID #60 tab 10/31/18 torsemide 100 mg PO DAILY #30 tab 10/31/18 Previous Rx's Medication Instructions Recorded calcium carbonate-vitamin D3 1 cap PO BID #60 cap 10/31/18 lidocaine 1 patch TP DAILY PRN #30 each 10/31/18 lorazepam 0.5 mg PO TID PRN #15 tab 10/31/18 lorazepam 0.5 mg PO TID PRN PRN #0 tab 10/31/18 spironolactone 50 mg PO BID #60 tab 10/31/18 torsemide 100 mg PO DAILY #30 tab 10/31/18 Allergies Allergy/AdvReac Type Severity Reaction Status Date / Time sitagliptin Allergy Unknown Unverified 10/24/18 17:14 cephalexin Allergy Unverified 10/24/18 17:30 erythromycin base Allergy Unverified 10/24/18 17:30 hydrochlorothiazide Allergy Unverified 10/24/18 17:30 ibuprofen Allergy Unverified 10/24/18 17:30 latex Allergy Unverified 10/24/18 17:30 meloxicam Allergy Unverified 10/24/18 17:30 metformin Allergy Unverified 10/24/18 17:18 nabumetone Allergy Unverified 10/24/18 17:18 Penicillins Allergy Unverified 10/24/18 17:30 Sulfa (Sulfonamide Allergy Unverified 10/24/18 17:30 Antibiotics) sulfasalazine Allergy Unverified 10/24/18 17:30 sumatriptan Allergy Unverified 10/24/18 17:30 General BRUNILDA: 3 Review of Systems Unobtainable due to mental status [facility] Medical History Anxiety (Chronic) Chronic acquired lymphedema (Acute) Cirrhosis of liver (Acute) Degenerative disc disease (Acute) Depression (Chronic) Diastolic CHF (Chronic) Fatty liver (Acute) Hx of esophageal varices (Acute) Iron deficiency anemia (Acute) Morbid obesity (Acute) Myelodysplasia (myelodysplastic syndrome) (Acute) Osteoarthritis (Chronic) PTSD (post-traumatic stress disorder) (Acute) Sleep apnea (Acute) Thrombocythemia (Acute) Type 2 diabetes mellitus (Chronic) Social History Smoking/Tobacco Use Status: Former Tobacco Use Alcohol Intake: never Substance use type: does not use Exam Const General: cooperative, comfortable, no acute distress, disheveled and ill appearing chronically (Patient appears jaundiced) Nutritional Appearance: well nourished and obese Orientation: alert, awake and oriented x3 (Is able to answer these questions but mentation not consistent) [facility] Head images: 1. Small abrasion, appears to be healing well with no signs of infection 2. Ecchymosis Ears: hearing grossly normal bilaterally Face and sinus: normal facial exam (Patient is jaundiced) Mouth: lip normal, abnormal tongue (Yellowed), mucous membranes dry (Patient appears very dry) and no drooling Eyes Conjunctivae: conjunctival abnormality bilaterally conjunctival icterus Chest Chest: normal inspection of the chest, normal palpation of entire chest wall and no crepitus Resp Effort & Inspection: normal respiratory effort, able to speak in complete sentences and no respiratory distress Auscultation: crackles bilaterally in the lower lung gregory, no rales, no rhonchi and no wheezes Cardio Rate: regular rate Rhythm: regular rhythm Heart Sounds: S1 normal, S2 normal and murmur systolic GI Inspection: normal to inspection, no edema, non-distended and obesity Palpation: soft, no hepatosplenomegaly, not firm, no guarding, no pulsatile masses, not rigid, nontender and No ascites Auscultation: normal bowel sounds Abdomen image: 1. Areas of ecchymosis 2. Areas of ecchymosis Back/Spine/Pelvis Back: no CVA tenderness Thoracic/Lumbar Spine: thoracic and lumbar spine normal to inspection Skin General skin exam: ecchymosis (Patient has a multitude of bruises throughout her body) Trauma: abrasion Neuro General: alert, awake, oriented x3, gait abnormal and moves all extremities Speech: abnormal speech slurred Motor: strength abnormal (Patient has diffuse weakness in all extremities) Extrem General: normal capillary refill, no calf tenderness and edema Laterality: bilat eral Psych Appearance: disheveled
[2018-12-11 17:27] LABS: Abs Immature Grans 0.12 k/cumm (0.0-0.09); Bilirubin Small (Negative); Blood Negative (Negative); Clarity Clear (Clear); Glucose Negative (Negative); HCT 27.1 % (36.0-46.0); HGB 8.6 g/dL (12.0-15.5); Ketones Negative (Negative); Leukocyte Esterase Negative (Negative); Mean Corp. HGB Concentration 31.7 g/dL (32.0-36.0); Mean Corpuscular Hemoglobin 29.5 pg (27.0-33.0); Mean Corpuscular Volume 92.8 fL (80-95); Nitrite Negative (Negative); Platelet Count 134 x1000/uL (130-400); RBC 2.92 m/cumm (4.00-5.20); RBC Distribution Width 17.3 % (11.7-14.6); Specific Gravity 1.015 (1.005-1.025); White Blood Cell Count 11.14 k/cumm (4.4-10.8)
[2018-12-11 17:37] LABS: Creatine Kinase 350 U/L (26-192)
[2018-12-11 17:39] LABS: Absolute Lymphocyte Count 1.89 k/cumm (1.2-3.4); Absolute Monocyte Count 0.33 k/cumm (0.11-0.7); Absolute Neutrophil Count 8.91 k/cumm (1.2-6.7); Atypical Lymphocytes % 8
[2018-12-11 17:40] LABS: Diff Comment Manual Differential; Macrocytosis 1+; Polychromasia Present
[2018-12-11 17:42] LABS: ALT 54 U/L (14-59); AST 124 U/L (15-37); Albumin 1.8 g/dL (3.4-5.0); Alkaline Phosphatase 162 U/L (46-116); Anion Gap 11.7 mmol/L (3-11); Bilirubin, Total 6.6 mg/dL (0.2-1.0); CO2 23.3 mmol/L (21.0-32.0); CREATININE 2.83 mg/dL (0.55-1.02); Chloride 94 mmol/L (98-107); Estimated GFR 16.45 (mL/min/1.73m2); Glucose 210 mg/dL (70-100); Magnesium 3.3 mg/dL (1.8-2.4); Sodium 129 mmol/L (136-145); Total Protein 5.8 g/dL (6.4-8.2)
[2018-12-11 17:45] LABS: Troponin I < 0.05 ng/mL (0.00-0.06)
[2018-12-11 17:46] LABS: BUN 109 mg/dL (7-18); Potassium 6.1 mmol/L (3.5-5.1)
--- NOTE | 2018-12-11 17:47 | DI.CT_ITS ---
EXAM: CT HEAD WO CLINICAL HISTORY: altered speach TECHNIQUE: CT examination was performed without contrast administration. COMPARISON: CT HEAD WO from 10/25/2018 FINDINGS: There is significant motion artifact on images obtained near the vertex. Areas of question increas ed parenchymal density in this area may be related to artifact. Contusion or hemorrhage not entirely excluded. Repeat CT recommended when clinically appropriate. Moderate generalized cerebral atrophy noted. No gross calvarial fracture. The paranasal sinuses are fairly well aerated as are the masto id air cells. Orbital and temporal bone structures appear intact. IMPRESSION: Motion artifact limits imaging near the vertex. Repeat CT recommended to evaluate questionable area of increased attenuation, frontal contusion or hemorrhage not excluded.
[2018-12-11] MEDS: Normal Saline 500 ML IV (17:56)
[2018-12-11 18:00] LABS: ETHANOL BLOOD < 3.0 mg/dL (<3)
[2018-12-11 18:33] LABS: NT-proBNP 1264 pg/mL
[2018-12-11 18:45] LABS: *AMPHETAMINES SCREEN URINE Negative (Negative); *BARBITURATES SCREEN URINE Negative (Negative); *BENZODIAZEPINES SCREEN URINE Negative (Negative); Cannabinoids THC Negative (Negative); Cocaine Screen,Urine Negative (Negative); METHADONE URINE SCREEN Negative (Negative); OPIATES URINE SCREEN Negative (Negative); Tricyclic Antidepressants Negative (Negative)
--- NOTE | 2018-12-11 19:00 | DI.RAD_ITS ---
EXAM: XR CHEST 2V PA LATERAL CLINICAL HISTORY: fluid overload COMPARISON: No exams were available for comparison FINDINGS: The heart is enlarged. There are patchy bilateral intrapulmonary infiltrates, no previous films avai lable for comparison. The findings are nonspecific and may represent multifocal pneumonia versus CHF. No gross pleural effusion identified. IMPRESSION: Question multifocal pneumonia versus CHF. Follow-up films requested following treatment.
--- NOTE | 2018-12-11 19:13 | DI.VRAD_ITS ---
PROCEDURE INFORMATION: Exam: XR Chest, 2 Views Exam date and time: 12/11/2018 7:05 PM Clinical history: 73 years old, female; Other: Fluid overload TECHNIQUE: Imaging protocol: XR of the chest Views: 2 views. COMPARISON: No relevant prior studies available. FINDINGS: Lungs: Bilateral perihilar infiltrates extending to the periphery of the lung. Consolidation in the perihilar regions and lung bases. Pleural space: Unremarkable. No pleural effusion. No pneumothorax. Heart/Mediastinum: Hypoventilation. Cardiomegaly. Bones/joints: Unremarkable for patient's age. IMPRESSION: 1. Bilateral pneumonia. 2. Cardiomegaly. Dictated and Authenticated by: Radha Romero MD. Ordering:ROBERT Randall MD
--- NOTE | 2018-12-11 19:23 | DI.VRAD_ITS ---
Addendum created by Radha Romero MD on 12/11/2018 7:27:39 PM EST THIS REPORT CONTAINS FINDINGS THAT MAY BE CRITICAL TO PATIENT CARE. The findings were verbally communicated via telephone conference with ETHAN ALEXANDRA at 7:27 PM EST on 12/11/2018. The findings were acknowledged and understood. Initial report created on 12/11/2018 7:23:43 PM EST PROCEDURE INFORMATION: Exam: CT Head Without Contrast Exam date and time: 12/11/2018 6:50 PM Clinical history: 73 years old, female; Speech disturbance; Other: Altered speech TECHNIQUE: Imaging protocol: Computed tomography of the head without contrast. Radiation optimization: All CT scans at this facility use at least one of these dose optimization techniques: automated exposure control; mA and/or kV adjustment per patient size (includes targeted exams where dose is matched to clinical indication); or iterative reconstruction. COMPARISON: CT HEAD WO 25/10/2018 19:01 FINDINGS: Brain: Increased left frontal parietal parenchymal density series 2 image [id number] which may represent a contusion or hemorrhage versus artifact. Recommend repeating CT when patient is able to cooperate with the exam or obtain a MRI for earlier evaluation. Motion artifact degrades image quality of the cortical sulci of the parietal regions bilaterally. Ventricles: Unremarkable. No ventriculomegaly. Bones/joints: Hyperostosis frontalis interna. Sinuses: Visualized sinuses are unremarkable. No fluid levels. Mastoid air cells: Fluid in the inferior mastoid air cells bilaterally. Motion artifact degrades image quality. Soft tissues: Unremarkable. Nasopharynx: Debris, mucous, or mass in the left nasopharynx similar to the prior study. IMPRESSION: 1. Increased parenchymal density involving the left frontal parietal region. The findings may represent hemorrhage versus artifact from motion. Recommend repeating study or obtaining an MRI for further evaluation. 2. Debris, mucous, or mass in the left nasopharynx similar to the prior study. 3. Fluid in the mastoid air cells bilaterally. Dictated and Authenticated by: Radha Romero MD. Ordering:ROBERT Randall MD
[2018-12-11] MEDS: Normal Saline Flush 10 ML SYR IVP (19:38)
[2018-12-11] MEDS: levoFLOXacin 750 MG/150 ML BAG 100 MG IVPB (19:55)
[2018-12-11] MEDS: Normal Saline 1,000 ML 250 ML IV (21:00)
--- NOTE | 2018-12-11 22:04 | HPE_ITS ---
Date of service: 12/11/18 Time of Service: 22:04 Assessment and Plan Assessment and plan (1) Weakness: Status: Acute Assessment and plan: Multiple problems, unclkear which may driving the picture but will focus on systems individually. 1. Pneumonia (presumably, very poor inspiration). Has received Levaquin, will continue for now with renal dosing 2. Azotemia, likely pre-renal. Will gently hydrate and monitor. Hyperkalemia, presumably due to renal insufficiency. Will give single dose Kayexalate and monitor. 4. Jaundice: has h/o cirrhosis but recent bilirubin normal. Unclear what may be driving worsening function, and some of her mental status may be due to hepatic encephalopathy. For now I think it best if we simply monitor how she does with fluids and antibiotics, but may need more specific treatment 5. Anemia: needs w/u, ACD versus bleeding?. Will check stool guaiacs and iron studies. Patient is on numerous medications, any or all of which may be contributing factor here. i think the safest approach here is to hold everything, monitor overall status, and then add back as indicated. History of Present Illness History of Present Illness Chief Complaint: weakness Narrative: 73 female with numerous medical and psychiatric problems. Apparently for the past three weeks she has been flinging herself on the floor; for the past week has not been getting out of bed; and for the past few days has been noted to be jaundiced. In ER findings of note for leukocytosis of 11; anemia with HCT 27; bibasilar pneumonia, head CT showing probable arrtefact versus SDH (reviewed with [facility], concurs with artefact per ER); azotemia, hyperbilirubinemia of 6.6, potassium 6.1, sodium 129. She is admitted for further managementt. Patient unable to provide any history except she tells me she feels OK. Review of Systems Unobtainable due to mental condition [facility] Medical History Anxiety (Chronic) Chronic acquired lymphedema (Acute) Cirrhosis of liver (Acute) Degenerative disc disease (Acute) Depression (Chronic) Diastolic CHF (Chronic) Fatty liver (Acute) Hx of esophageal varices (Acute) Iron deficiency anemia (Acute) Morbid obesity (Acute) Myelodysplasia (myelodysplastic syndrome) (Acute) Osteoarthritis (Chronic) PTSD (post-traumatic stress disorder) (Acute) Sleep apnea (Acute) Thrombocythemia (Acute) Type 2 diabetes mellitus (Chronic) Social History Smoking/Tobacco Use Status: Former Tobacco Use Alcohol Intake: never Substance use type: does not use Meds Home Medications and Allergies Home Medications Medication Instructions Recorded Confirmed Type Xifaxan 550 mg PO BID 10/24/18 10/24/18 History acetaminophen [Tylenol] 650 mg PO PRN PRN 10/24/18 10/24/18 History bupropion HCl 150 mg PO DAILY 10/24/18 10/24/18 History citalopram 40 mg DAILY 10/24/18 10/24/18 History ferrous sulfate 324 mg PO DAILY 10/24/18 10/24/18 History gabapentin 300 mg PO TID 10/24/18 10/24/18 History hydroxyzine HCl 50 mg PO Q6H PRN 10/24/18 10/24/18 History lactulose 20 g PO BID 10/24/18 10/24/18 History nystatin See Rx Instructions .ROUTE .COMPLEX 10/24/18 10/24/18 History ondansetron 4 mg Q4H PRN PRN 10/24/18 10/24/18 History pantoprazole 40 mg PO BID 10/24/18 10/24/18 History polyethylene glycol 3350 17 g PO DAILY 10/24/18 10/24/18 History sennosides [senna] 8.6 mg PO HS 10/24/18 10/24/18 History tramadol 1 mg PO BID PRN 10/24/18 10/24/18 History triamcinolone acetonide See Rx Instructions .ROUTE .COMPLEX 10/24/18 10/24/18 History calcium carbonate-vitamin D3 1 cap PO BID #60 cap 10/31/18 Rx lidocaine 1 patch TP DAILY PRN #30 each 10/31/18 Rx lorazepam 0.5 mg PO TID PRN #15 tab 10/31/18 Rx lorazepam 0.5 mg PO TID PRN PRN #0 tab 10/31/18 10/24/18 Rx spironolactone 50 mg PO BID #60 tab 10/31/18 Rx torsemide 100 mg PO DAILY #30 tab 10/31/18 Rx Allergies Allergy/AdvReac Type Severity Reaction Status Date / Time sitagliptin Allergy Unknown Unverified 10/24/18 17:14 cephalexin Allergy Unverified 10/24/18 17:30 erythromycin base Allergy Unverified 10/24/18 17:30 hydrochlorothiazide Allergy Unverified 10/24/18 17:30 ibuprofen Allergy Unverified 10/24/18 17:30 latex Allergy Unverified 10/24/18 17:30 meloxicam Allergy Unverified 10/24/18 17:30 metformin Allergy Unverified 10/24/18 17:18 nabumetone Allergy Unverified 10/24/18 17:18 Penicillins Allergy Unverified 10/24/18 17:30 Sulfa (Sulfonamide Allergy Unverified 10/24/18 17:30 Antibiotics) sulfasalazine Allergy Unverified 10/24/18 17:30 sumatriptan Allergy Unverified 10/24/18 17:30 Exam Narrative Exam Narrative: 88/30, 81, 12, 36.6. Jaundiced ;HEENT AT/NC, oral mucosa dry; neck supple; lungs decreased BS; heart RRR; abdomen soft NT; extremities 4+ lymphedema, blood blister over left heel; neuro ox1,mostly mumbled answers to questions moves all 4s Results Labs Result diagrams: 12/11/18 16:46 12/11/18 16:46 Labs: Laboratory Results - last 24 hr 12/11/18 12/11/18 12/11/18 16:45 16:46 16:46 WBC 11.14 H RBC 2.92 L Hgb 8.6 L Hct 27.1 L MCV 92.8 MCH 29.5 MCHC 31.7 L RDW 17.3 H Plt Count 134 MPV 11.0 Immature Gran % 0.0 Neutrophils % 80.0 Band Neutrophils % 0.0 Lymphocytes % 9.0 Atypical Lymphs % 8 Monocytes % 3.0 Eosinophils % 0.0 Basophils % 0.0 Absolute Neutrophils 8.91 H Absolute Lymphocytes 1.89 Absolute Monocytes 0.33 Absolute Eosinophils 0.00 Absolute Basophils 0.00 Differential Comment Manual differential RBC Morphology See below Polychromasia Present Macrocytosis 1+ Sodium 129 L Potassium 6.1 H* Chloride 94 L Carbon Dioxide 23.3 Anion Gap 11.7 H BUN 109 H* Creatinine 2.83 H Estimated GFR/1.73 m2 16.45 Glucose 210 H Calcium 8.0 L Magnesium 3.3 H Total Bilirubin 6.6 H AST 124 H ALT 54 Alkaline Phosphatase 162 H Creatine Kinase Troponin I < 0.05 NT-Pro-B Natriuret Pep Total Protein 5.8 L Albumin 1.8 L Urine Color Urine Clarity Urine pH Ur Specific Oto Urine Protein Urine Ketones Urine Blood Urine Nitrite Urine Bilirubin Urine Urobilinogen Ur Leukocyte Esterase Urine Glucose Urine Opiates Screen Negative Urine Methadone Screen Negative Ur Barbiturates Screen Negative Ur Tricyclics Screen Negative Ur Amphetamines Screen Negative U Benzodiazepines Scrn Negative Urine Cocaine Screen Negative Ur THC Screen Negative Ethyl Alcohol 12/11/18 12/11/18 12/11/18 16:46 16:46 16:46 WBC RBC Hgb Hct MCV MCH MCHC RDW Plt Count MPV Immature Gran % Neutrophils % Band Neutrophils % Lymphocytes % Atypical Lymphs % Monocytes % Eosinophils % Basophils % Absolute Neutrophils Absolute Lymphocytes Absolute Monocytes Absolute Eosinophils Absolute Basophils Differential Comment RBC Morphology Polychromasia Macrocytosis Sodium Potassium Chloride Carbon Dioxide Anion Gap BUN Creatinine Estimated GFR/1.73 m2 Glucose Calcium Magnesium Total Bilirubin AST ALT Alkaline Phosphatase Creatine Kinase 350 H Troponin I NT-Pro-B Natriuret Pep Total Protein Albumin Urine Color Yellow Urine Clarity Clear Urine pH 5.0 Ur Specific Oto 1.015 Urine Protein Negative Urine Ketones Negative Urine Blood Negative Urine Nitrite Negative Urine Bilirubin Small H Urine Urobilinogen 2.0 H Ur Leukocyte Esterase Negative Urine Glucose Negative Urine Opiates Screen Urine Methadone Screen Ur Barbiturates Screen Ur Tricyclics Screen Ur Amphetamines Screen U Benzodiazepines Scrn Urine Cocaine Screen Ur THC Screen Ethyl Alcohol < 3.0 12/11/18 16:46 WBC RBC Hgb Hct MCV MCH MCHC RDW Plt Count MPV Immature Gran % Neutrophils % Band Neutrophils % Lymphocytes % Atypical Lymphs % Monocytes % Eosinophils % Basophils % Absolute Neutrophils Absolute Lymphocytes Absolute Monocytes Absolute Eosinophils Absolute Basophils Differential Comment RBC Morphology Polychromasia Macrocytosis Sodium Potassium Chloride Carbon Dioxide Anion Gap BUN Creatinine Estimated GFR/1.73 m2 Glucose Calcium Magnesium Total Bilirubin AST ALT Alkaline Phosphatase Creatine Kinase Troponin I NT-Pro-B Natriuret Pep 1264 H Total Protein Albumin Urine Color Urine Clarity Urine pH Ur Specific Oto Urine Protein Urine Ketones Urine Blood Urine Nitrite Urine Bilirubin Urine Urobilinogen Ur Leukocyte Esterase Urine Glucose Urine Opiates Screen Urine Methadone Screen Ur Barbiturates Screen Ur Tricyclics Screen Ur Amphetamines Screen U Benzodiazepines Scrn Urine Cocaine Screen Ur THC Screen Ethyl Alcohol Last Vital Signs Temp 36.6 C 12/11/18 21:37 Pulse 81 12/11/18 21:37 Resp 12 12/11/18 21:37 BP 88/30 L 12/11/18 21:37 Pulse Ox 93 L 12/11/18 21:37
[2018-12-11 22:13] LABS: INR 1.9 (0.9-1.1); PTT Activated 36.5 sec (21.0-31.4); Prothrombin Time 19.2 sec (9.3-11.0)
--- NOTE | 2018-12-11 22:37 | NUR.NOTE ---
unable to complete med rec pt not able to answer called pharmacy - fax never received caregiver left Nursing Note:
[2018-12-11 23:02] LABS: Iron 12 ug/dL (50-175); Total Iron Binding Capacity 198 ug/dL (250-450); Transferrin Sat 6 % (15-50)
[2018-12-11 23:20] LABS: Ferritin 127 ng/mL (8-388)
[2018-12-12] VITALS (38 sets, daily range): BP systolic 86–134; BP diastolic 35–69; PULSE 68–84; RESP 8–17; TEMP 35.8–37; O2SAT 91–97
--- NOTE | 2018-12-12 00:30 | NUR.NOTE ---
Addendum entered by Colleen Blevins RN 12/12/18 04:49: Admission Skin assessment visualized by this RN and Mk Marquis RN. 1. purple ecchymosis with abrasion to left chin 2. Multiple scattered small to moderate sized purple/red areas of ecchymosis covering abdominal area and breasts. 3. Scattered small purple/red areas of ecchymosis on back. 4. Scattered small bruising in various stages of healing to bilateral upper extremities 5. Scattered small bruises in various stages of healing to bilateral distal lower extremities. 6. Significant deep purple ecchymosis to left torso/abdomen from approx. 4th ICS to groin including pannus and left vulva. 7. Large deep purple ecchymosis to left anterior upper leg. 8. Large deep purple/black ecchymosis to left posterior upper leg from just below the gluteal fold to 1-2 inches above the posterior knee. 9. Large deep purple ecchymosis to Left knee with area cracked open and scant bloody drainage. 10. DTI to right heel. Blister intact. Original Note: Nursing Note:
[2018-12-12] MEDS: Phytonadione 10 MG/ML AMP SC (01:34)
[2018-12-12] MEDS: Normal Saline 1,000 ML 80 ML IV (01:35)
[2018-12-12 07:26] LABS: HCT 25.5 % (36.0-46.0); HGB 8.1 g/dL (12.0-15.5); Mean Corp. HGB Concentration 31.8 g/dL (32.0-36.0); Mean Corpuscular Hemoglobin 29.2 pg (27.0-33.0); Mean Corpuscular Volume 92.1 fL (80-95); Mean Platelet Volume 10.7 fL (8.0-11.0); Platelet Count 161 x1000/uL (130-400); RBC 2.77 m/cumm (4.00-5.20); RBC Distribution Width 17.3 % (11.7-14.6); White Blood Cell Count 11.19 k/cumm (4.4-10.8)
[2018-12-12 07:39] LABS: Anion Gap 12.7 mmol/L (3-11); CO2 22.3 mmol/L (21.0-32.0); CREATININE 2.68 mg/dL (0.55-1.02); Calcium 7.8 mg/dL (8.5-10.1); Chloride 97 mmol/L (98-107); Estimated GFR 17.52 (mL/min/1.73m2); Glucose 177 mg/dL (70-100); Potassium 5.6 mmol/L (3.5-5.1); Sodium 132 mmol/L (136-145)
[2018-12-12 07:42] LABS: Prothrombin Time 20.1 sec (9.3-11.0)
[2018-12-12 07:43] LABS: BUN 107 mg/dL (7-18)
[2018-12-12 07:59] LABS: ALT 55 U/L (14-59); AST 136 U/L (15-37); Bilirubin, Direct 5.42 mg/dL (0.00-0.20); Bilirubin, Total 6.8 mg/dL (0.2-1.0)
--- NOTE | 2018-12-12 08:00 | DI.US_ITS ---
EXAM: US ABDOMEN CLINICAL HISTORY: liver failure, cirrhosis - ?SBP/portal vein thromb TECHNIQUE: Ultrasound performed using standard protocol. COMPARISON: No exams were available for comparison FINDINGS: The liver appears of decreased size and coarse echotexture. Significant portions of the liver are no t well visualized. No biliary dilatation. Gallbladder wall is mildly thickened at 6 millimeters. T here is abdominal ascites and pericholecystic fluid is noted. Gallbladder wall thickening may be rel ated to the patient's cardiac/fluid status. There is gallbladder sludge without evidence of a gallst one. Pancreas poorly visualized. Spleen is mildly enlarged but otherwise grossly unremarkable. Right kidney poorly seen. Left kidney poorly seen. IMPRESSION: Examination is technically limited. Small liver with heterogeneous echotexture consistent with the p atient's diagnosis of hepatic cirrhosis. No other significant acute findings. Please note that ther e is no gross evidence of portal vein thrombosis and portal vein flow is normo directional.
[2018-12-12 08:01] LABS: C-Reactive Protein > 25.00 mg/dL (0.0-0.3)
[2018-12-12 08:02] LABS: BE (Venous) -0.6 mmol/L (-3-3); HCO3 (Venous) 23 mmol/L (22-28); O2 Sat (Venous) 98 % (70-80); TCO2 (Venous) 22 mmol/L (22-29); pCO2 (Venous) 31 mm/Hg (34-47); pH (Venous) 7.48 (7.32-7.43); pO2 (Venous) 98 mm/Hg (28-44)
[2018-12-12 08:05] LABS: TSH (W/Ref FT4) 2.08 uIU/mL (0.36-3.74)
[2018-12-12 08:06] LABS: Lactate 2.7 mmol/L (0.6-1.4)
[2018-12-12 08:12] LABS: Ammonia 43 umol/L (11-32)
[2018-12-12 08:12] LABS: Acetaminophen < 2 ug/mL (10-30)
--- NOTE | 2018-12-12 08:21 | PGE_ITS ---
Date of Service Date of service: 12/12/18 Time of Service: 13:00 Assessment and Plan Assessment and plan (1) Multiorgan failure: Status: Acute Assessment and plan: Encephalopathy, respiratory failure, question of heart failure, acute liver failure with jaundice, coagulopathy, hypoalbuminemic state, acute kidney failure (?hepatorenal failure) with hyperkalemia. Read A/P as per each of the different components of the failure. There is high suspicion for sepsis to be triggering this acute worsening of patient's condition. Tammy looks like she is dying. Her prognosis is poor. Rescuscitation may not be helpful if she does - her overall medical condition is poor and likelihood of surviving a code low. Palliative care is consulted. The patient does not have a guardian and cannot make her own medical decisions. Transfer to a tertiary care facility is also being strongly considered and results of imaging will heavily weigh in that decision. (2) Subdural hematoma: Status: Suspected Assessment and plan: CT head was discussed with [facility] yesterday and not felt to be showing a subdural hematoma, but clinically I am more concerned about this now with worsening altered mental status, headache, different breathing pattern, and a clear hematoma on the chin. For these reasons, CT head is being repeated. If the patient does have a hematoma, she is unfortunately coagulopathic and her prognosis is poor. She is s/p vitamin K. Will follow closely. (3) Toxic metabolic encephalopathy: Status: Acute Assessment and plan: This is miltifactorial - due to head trauma/possible subdural hematoma, as well as hepatic encephalopathy, encephalopathy due to sepsis, possible component of respiratory failure. The patient cannot safely take lactulose or rifaximin PO due to her mental status. She might need to have an NG tube - but this I would be afraid to place due to the history of esophageal varices. As far as triggers, infectious processes that could be causing this are possible SBP and pneumonia. Continue empiric antibiotics (vancomycin initiated in addition to levofloxacin). (4) Acute liver failure: Status: Acute Assessment and plan: The patient has a history of cirrhosis - I do not know etiology at this time. The patient has hyperammonemia/hepatic encephalopathy, as well as coagulopathy, jaundice, hypoalbuminemia. She has a history of varices, but thankfully does not appear to be actively having a GI bleed (hemoccult is ordered). Triggers of decompensated cirrhosis could be sepsis due to ?SBP or HCAP. At this time, treat sepsis empirically. Hold hepatotoxic medications. Surgery consulted for paracenthesis. S/p Vitamin K - may require FFP. (5) Acute kidney failure: Status: Acute Assessment and plan: Hepatorenal failure high on differential. Trialing 100 g dose of albumin today and tomorrow. I do not think that crystalloid IVF are likely to be as helpful as albumin. Hold nephrotoxic medications. Christy - still making urine. If no response to albumin alone, will trial pressors/midodrine/albumin. (6) Acute respiratory failure: Status: Acute Assessment and plan: I do not think this is a primary process right now - CT chest pending. I do think there is a big metabolic component to her respiratory status and, perhaps, a SAW MAN component (encephalopathy, ?subdural hematoma). ABG is ordered. Full code - may require intubation. (7) Sepsis: Status: Suspected Assessment and plan: Ddx: HCAP, SBP. On empiric vancomycin/levofloxacin. Awaiting paracenthesis, blood cultures. Trend lactates, though in setting of liver disease these may not be helpful. (8) HCAP (healthcare-associated pneumonia): Status: Acute Assessment and plan: On vancomycin/levofloxacin - CT chest pending. Await blood culture results. (9) SBP (spontaneous bacterial peritonitis): Status: Suspected Assessment and plan: Suspected. Levofloxacin should provide adequate coverage as she was not previously on prophylaxis. Awaiting paracenthesis. (10) Hyperkalemia: Status: Acute Assessment and plan: Improving with IVF. Repeat BMP at 2:30 pm. (11) Cirrhosis of liver: Status: Chronic Assessment and plan: As above (12) Type 2 diabetes mellitus: Status: Chronic Assessment and plan: Provide SSI Qualifiers: Diabetes mellitus termite exterminator insulin use: without termite exterminator use Diabetes mellitus complication status: without complication Qualified Code(s): E11.9 - Type 2 diabetes mellitus without complications (13) Coagulopathy: Status: Acute Assessment and plan: S/p Vit K - if found to have a brain hemorrhage, would need FFP, emergent transfer. (14) Depression: Status: Chronic Assessment and plan: Holding PO meds Qualifiers: Depression Type: major depressive disorder Major depression recurrence: recurrent Active/Remission status: currently active Major depression episode severity: moderate Qualified Code(s): F33.1 - Major depressive disorder, recurrent, moderate (15) Anxiety: Status: Chronic Assessment and plan: Holding PO meds. (16) Sleep apnea: Status: Chronic Assessment and plan: Checking ABG. May require BiPAP. (17) Acute on chronic anemia: Status: Acute Assessment and plan: Check hemoccult. Does not appear to be massively bleeding (18) Ambulatory dysfunction: Status: Acute Assessment and plan: XR LLE pending (19) Discharge planning issues: Status: Acute Assessment and plan: Full code low threshold for transfer to a tertiary care facility Palliative care is consulted (20) DVT prophylaxis: Status: Acute Assessment and plan: on hold Total critical care time 90 minutes Subjective Subjective Interval history since last seen: This morning, patient was more awake, asking for water, speech was noted to be garbled, A&Ox2. Since then her mental status has deteriorated and the breathing pattern has changed - she is now breathing 8 times/minute and appearing to be apneic. She is still able to answer questions in short answers and follows commands. She reports a headache, denies chest pain, shortness of breath. Reports abdominal pain. Denies nausea. No rectal bleeding noted by nursing. Huge bruises all over - nursing concerned about LLE appearing to be too easy to move - the patient is not grimacing when this is demonstrated to me today. She is making urine. ABG, repeat CT head, CT chest/abdomen/pelvis and XR LLE are being done now. General surgery is consulted for paracenthesis. Exam Narrative Exam Narrative: General: lethargic obese jaundiced female, awake, but inattentive and answers with short answers only; her breathing is can be described as Hitesh-Batres and is definitely abnormal; multiple bruises throughout, including chin, L flank/abdomen, L posterior thigh, L knee, R heel (blood blister) HEENT: patient does not seem to be blinking unless I ask her too, She does not track unless being asked, slightly disconjugate gaze, dry MM with cracked whitish tongue Heart: RRR, no m/r/g Lungs: Crackles at B bases GI: abdomen is soft, obese, with what I think is a mild fluid wave, no pertioneal signs; L flank with a large purple hematoma Extremities: 2+ pitting edema B, able to move toes in BLE, but not moving either leg voluntarily; there is definitely exxagerated and limp passive motion in LLE; large L knee hematoma, posterior thigh hematoma Objective Objective Clinical Data: Abnormal lab results 12/11/18 12/11/18 12/11/18 Range/Units 16:46 16:46 16:46 WBC 11.14 H (4.4-10.8) k/cumm RBC 2.92 L (4.00-5.20) m/cumm Hgb 8.6 L (12.0-15.5) g/dL Hct 27.1 L (36.0-46.0) % MCHC 31.7 L (32.0-36.0) g/dL RDW 17.3 H (11.7-14.6) % Absolute Neutrophils 8.91 H (1.2-6.7) k/cumm PT (9.3-11.0) sec INR (0.9-1.1) APTT (21.0-31.4) sec VBG pH (7.32-7.43) VBG pCO2 (34-47) mm/Hg VBG pO2 (28-44) mm/Hg VBG O2 Saturation (70-80) % Sodium 129 L (136-145) mmol/L Potassium 6.1 H* (3.5-5.1) mmol/L Chloride 94 L (98-107) mmol/L Anion Gap 11.7 H (3-11) mmol/L BUN 109 H* (7-18) mg/dL Creatinine 2.83 H (0.55-1.02) mg/dL Glucose 210 H (70-100) mg/dL Lactate (0.6-1.4) mmol/L Calcium 8.0 L (8.5-10.1) mg/dL Magnesium 3.3 H (1.8-2.4) mg/dL Iron (50-175) ug/dL TIBC (250-450) ug/dL Transferrin % Sat (15-50) % Total Bilirubin 6.6 H (0.2-1.0) mg/dL Conjugated Bilirubin (0.00-0.20) mg/dL AST 124 H (15-37) U/L Alkaline Phosphatase 162 H (46-116) U/L Creatine Kinase 350 H (26-192) U/L C-Reactive Protein (0.0-0.3) mg/dL NT-Pro-B Natriuret Pep ( - 299) pg/mL Total Protein 5.8 L (6.4-8.2) g/dL Albumin 1.8 L (3.4-5.0) g/dL Urine Bilirubin (Negative) Urine Urobilinogen (Up TO 0.2) EU/dL Acetaminophen (10-30) ug/mL 12/11/18 12/11/18 12/11/18 Range/Units 16:46 16:46 16:46 WBC (4.4-10.8) k/cumm RBC (4.00-5.20) m/cumm Hgb (12.0-15.5) g/dL Hct (36.0-46.0) % MCHC (32.0-36.0) g/dL RDW (11.7-14.6) % Absolute Neutrophils (1.2-6.7) k/cumm PT 19.2 H (9.3-11.0) sec INR 1.9 H (0.9-1.1) APTT 36.5 H (21.0-31.4) sec VBG pH (7.32-7.43) VBG pCO2 (34-47) mm/Hg VBG pO2 (28-44) mm/Hg VBG O2 Saturation (70-80) % Sodium (136-145) mmol/L Potassium (3.5-5.1) mmol/L Chloride (98-107) mmol/L Anion Gap (3-11) mmol/L BUN (7-18) mg/dL Creatinine (0.55-1.02) mg/dL Glucose (70-100) mg/dL Lactate (0.6-1.4) mmol/L Calcium (8.5-10.1) mg/dL Magnesium (1.8-2.4) mg/dL Iron (50-175) ug/dL TIBC (250-450) ug/dL Transferrin % Sat (15-50) % Total Bilirubin (0.2-1.0) mg/dL Conjugated Bilirubin (0.00-0.20) mg/dL AST (15-37) U/L Alkaline Phosphatase (46-116) U/L Creatine Kinase (26-192) U/L C-Reactive Protein (0.0-0.3) mg/dL NT-Pro-B Natriuret Pep 1264 H ( - 299) pg/mL Total Protein (6.4-8.2) g/dL Albumin (3.4-5.0) g/dL Urine Bilirubin Small H (Negative) Urine Urobilinogen 2.0 H (Up TO 0.2) EU/dL Acetaminophen (10-30) ug/mL 12/11/18 12/12/18 12/12/18 Range/Units 16:46 06:40 06:40 WBC 11.19 H (4.4-10.8) k/cumm RBC 2.77 L (4.00-5.20) m/cumm Hgb 8.1 L (12.0-15.5) g/dL Hct 25.5 L (36.0-46.0) % MCHC 31.8 L (32.0-36.0) g/dL RDW 17.3 H (11.7-14.6) % Absolute Neutrophils (1.2-6.7) k/cumm PT (9.3-11.0) sec INR (0.9-1.1) APTT (21.0-31.4) sec VBG pH (7.32-7.43) VBG pCO2 (34-47) mm/Hg VBG pO2 (28-44) mm/Hg VBG O2 Saturation (70-80) % Sodium 132 L (136-145) mmol/L Potassium 5.6 H (3.5-5.1) mmol/L Chloride 97 L (98-107) mmol/L Anion Gap 12.7 H (3-11) mmol/L BUN 107 H* (7-18) mg/dL Creatinine 2.68 H (0.55-1.02) mg/dL Glucose 177 H (70-100) mg/dL Lactate (0.6-1.4) mmol/L Calcium 7.8 L (8.5-10.1) mg/dL Magnesium (1.8-2.4) mg/dL Iron 12 L (50-175) ug/dL TIBC 198 L (250-450) ug/dL Transferrin % Sat 6 L (15-50) % Total Bilirubin (0.2-1.0) mg/dL Conjugated Bilirubin (0.00-0.20) mg/dL AST (15-37) U/L Alkaline Phosphatase (46-116) U/L Creatine Kinase (26-192) U/L C-Reactive Protein (0.0-0.3) mg/dL NT-Pro-B Natriuret Pep ( - 299) pg/mL Total Protein (6.4-8.2) g/dL Albumin (3.4-5.0) g/dL Urine Bilirubin (Negative) Urine Urobilinogen (Up TO 0.2) EU/dL Acetaminophen (10-30) ug/mL 12/12/18 12/12/18 12/12/18 Range/Units 06:40 06:40 07:50 WBC (4.4-10.8) k/cumm RBC (4.00-5.20) m/cumm Hgb (12.0-15.5) g/dL Hct (36.0-46.0) % MCHC (32.0-36.0) g/dL RDW (11.7-14.6) % Absolute Neutrophils (1.2-6.7) k/cumm PT 20.1 H (9.3-11.0) sec INR 2.0 H (0.9-1.1) APTT (21.0-31.4) sec VBG pH 7.48 H (7.32-7.43) VBG pCO2 31 L (34-47) mm/Hg VBG pO2 98 H (28-44) mm/Hg VBG O2 Saturation 98 H (70-80) % Sodium (136-145) mmol/L Potassium (3.5-5.1) mmol/L Chloride (98-107) mmol/L Anion Gap (3-11) mmol/L BUN (7-18) mg/dL Creatinine (0.55-1.02) mg/dL Glucose (70-100) mg/dL Lactate (0.6-1.4) mmol/L Calcium (8.5-10.1) mg/dL Magnesium (1.8-2.4) mg/dL Iron (50-175) ug/dL TIBC (250-450) ug/dL Transferrin % Sat (15-50) % Total Bilirubin 6.8 H (0.2-1.0) mg/dL Conjugated Bilirubin 5.42 H (0.00-0.20) mg/dL AST 136 H (15-37) U/L Alkaline Phosphatase (46-116) U/L Creatine Kinase (26-192) U/L C-Reactive Protein > 25.00 H (0.0-0.3) mg/dL NT-Pro-B Natriuret Pep ( - 299) pg/mL Total Protein (6.4-8.2) g/dL Albumin (3.4-5.0) g/dL Urine Bilirubin (Negative) Urine Urobilinogen (Up TO 0.2) EU/dL Acetaminophen < 2 L (10-30) ug/mL 12/12/18 Range/Units 07:50 WBC (4.4-10.8) k/cumm RBC (4.00-5.20) m/cumm Hgb (12.0-15.5) g/dL Hct (36.0-46.0) % MCHC (32.0-36.0) g/dL RDW (11.7-14.6) % Absolute Neutrophils (1.2-6.7) k/cumm PT (9.3-11.0) sec INR (0.9-1.1) APTT (21.0-31.4) sec VBG pH (7.32-7.43) VBG pCO2 (34-47) mm/Hg VBG pO2 (28-44) mm/Hg VBG O2 Saturation (70-80) % Sodium (136-145) mmol/L Potassium (3.5-5.1) mmol/L Chloride (98-107) mmol/L Anion Gap (3-11) mmol/L BUN (7-18) mg/dL Creatinine (0.55-1.02) mg/dL Glucose (70-100) mg/dL Lactate 2.7 H* (0.6-1.4) mmol/L Calcium (8.5-10.1) mg/dL Magnesium (1.8-2.4) mg/dL Iron (50-175) ug/dL TIBC (250-450) ug/dL Transferrin % Sat (15-50) % Total Bilirubin (0.2-1.0) mg/dL Conjugated Bilirubin (0.00-0.20) mg/dL AST (15-37) U/L Alkaline Phosphatase (46-116) U/L Creatine Kinase (26-192) U/L C-Reactive Protein (0.0-0.3) mg/dL NT-Pro-B Natriuret Pep ( - 299) pg/mL Total Protein (6.4-8.2) g/dL Albumin (3.4-5.0) g/dL Urine Bilirubin (Negative) Urine Urobilinogen (Up TO 0.2) EU/dL Acetaminophen (10-30) ug/mL Vital Signs Temperature 36.5 C 12/12/18 04:00 Temperature Source Temporal Artery Scan 12/12/18 04:00 Pulse 79 12/12/18 05:30 Pulse Rhythm Regular 12/11/18 17:18 Pulse Strength Normal 12/11/18 17:18 Pulse 79 12/12/18 05:30 Respiratory Rate 11 L 12/12/18 05:30 Respiratory Effort 12/12/18 04:00 Respiratory Depth Shallow 12/12/18 04:00 Respiratory Pattern Normal 12/12/18 04:00 Blood Pressure 113/45 L 12/12/18 05:30 Blood Pressure Mean 62 12/12/18 05:30 Blood Pressure Position Sitting 12/11/18 17:18 Pulse Oximetry 95 12/12/18 05:30 Oxygen Delivery Method Room Air 12/12/18 04:00 Oxygen Flow Rate 0 12/12/18 04:00 Comment 12/11/18 21:37 Intake & Output 12/11/18 12/11/18 12/12/18 11:59 23:59 11:59 Intake Total 1026.667 / 1026.667 633.333 / 633.333 Balance 1026.667 / 1026.667 633.333 / 633.333 Weight 122.1 kg Intake: IV 1026.667 / 1026.667 633.333 / 633.333 Other: Urine Color Light Gloria [facility] Laboratory Results WBC 11.19 k/cumm (4.4-10.8) H 12/12/18 06:40 RBC 2.77 m/cumm (4.00-5.20) L 12/12/18 06:40 Hgb 8.1 g/dL (12.0-15.5) L 12/12/18 06:40 Hct 25.5 % (36.0-46.0) L 12/12/18 06:40 MCV 92.1 fL (80-95) 12/12/18 06:40 MCH 29.2 pg (27.0-33.0) 12/12/18 06:40 MCHC 31.8 g/dL (32.0-36.0) L 12/12/18 06:40 RDW 17.3 % (11.7-14.6) H 12/12/18 06:40 Plt Count 161 x1000/uL (130-400) 12/12/18 06:40 MPV 10.7 fL (8.0-11.0) 12/12/18 06:40 Immature Gran % 0.0 12/11/18 16:46 Neutrophils % 80.0 12/11/18 16:46 Band Neutrophils % 0.0 % 12/11/18 16:46 Lymphocytes % 9.0 12/11/18 16:46 Atypical Lymphs % 8 12/11/18 16:46 Monocytes % 3.0 12/11/18 16:46 Eosinophils % 0.0 12/11/18 16:46 Basophils % 0.0 12/11/18 16:46 Absolute Neutrophils 8.91 k/cumm (1.2-6.7) H 12/11/18 16:46 Absolute Lymphocytes 1.89 k/cumm (1.2-3.4) 12/11/18 16:46 Absolute Monocytes 0.33 k/cumm (0.11-0.7) 12/11/18 16:46 Absolute Eosinophils 0.00 k/cumm (0.0-0.7) 12/11/18 16:46 Absolute Basophils 0.00 k/cumm (0.0-0.2) 12/11/18 16:46 Differential Comment Manual differential 12/11/18 16:46 RBC Morphology See below 12/11/18 16:46 Polychromasia Present 12/11/18 16:46 Macrocytosis 1+ 12/11/18 16:46 PT 20.1 sec (9.3-11.0) H 12/12/18 06:40 INR 2.0 (0.9-1.1) H 12/12/18 06:40 APTT 36.5 sec (21.0-31.4) H 12/11/18 16:46 VBG pH 7.48 (7.32-7.43) H 12/12/18 07:50 VBG pCO2 31 mm/Hg (34-47) L 12/12/18 07:50 VBG pO2 98 mm/Hg (28-44) H 12/12/18 07:50 VBG HCO3 23 mmol/L (22-28) 12/12/18 07:50 VBG Total CO2 22 mmol/L (22-29) 12/12/18 07:50 VBG O2 Saturation 98 % (70-80) H 12/12/18 07:50 VBG Base Excess -0.6 mmol/L (-3-3) 12/12/18 07:50 Sodium 132 mmol/L (136-145) L 12/12/18 06:40 Potassium 5.6 mmol/L (3.5-5.1) H 12/12/18 06:40 Chloride 97 mmol/L (98-107) L 12/12/18 06:40 Carbon Dioxide 22.3 mmol/L (21.0-32.0) 12/12/18 06:40 Anion Gap 12.7 mmol/L (3-11) H 12/12/18 06:40 BUN 107 mg/dL (7-18) H* 12/12/18 06:40 Creatinine 2.68 mg/dL (0.55-1.02) H 12/12/18 06:40 Estimated GFR/1.73 m2 17.52 (mL/min/1.73m2) 12/12/18 06:40 Glucose 177 mg/dL (70-100) H 12/12/18 06:40 Lactate 2.7 mmol/L (0.6-1.4) H* 12/12/18 07:50 Calcium 7.8 mg/dL (8.5-10.1) L 12/12/18 06:40 Magnesium 3.3 mg/dL (1.8-2.4) H 12/11/18 16:46 Iron 12 ug/dL (50-175) L 12/11/18 16:46 TIBC 198 ug/dL (250-450) L 12/11/18 16:46 Transferrin % Sat 6 % (15-50) L 12/11/18 16:46 Ferritin 127 ng/mL (8-388) 12/11/18 16:46 Total Bilirubin 6.8 mg/dL (0.2-1.0) H 12/12/18 06:40 Conjugated Bilirubin 5.42 mg/dL (0.00-0.20) H 12/12/18 06:40 AST 136 U/L (15-37) H 12/12/18 06:40 ALT 55 U/L (14-59) 12/12/18 06:40 Alkaline Phosphatase 162 U/L (46-116) H 12/11/18 16:46 Creatine Kinase 350 U/L (26-192) H 12/11/18 16:46 Troponin I < 0.05 ng/mL (0.00-0.06) 12/11/18 16:46 C-Reactive Protein > 25.00 mg/dL (0.0-0.3) H 12/12/18 06:40 NT-Pro-B Natriuret Pep 1264 pg/mL (-299) H 12/11/18 16:46 Total Protein 5.8 g/dL (6.4-8.2) L 12/11/18 16:46 Albumin 1.8 g/dL (3.4-5.0) L 12/11/18 16:46 TSH 2.08 uIU/mL (0.36-3.74) 12/12/18 06:40 Urine Color Yellow (Yellow) 12/11/18 16:46 Urine Clarity Clear (Clear) 12/11/18 16:46 Urine pH 5.0 (5-8) 12/11/18 16:46 Ur Specific [place] 1.015 (1.005-1.025) 12/11/18 16:46 Urine Protein Negative mg/dL (Negative) 12/11/18 16:46 Urine Ketones Negative mg/dL (Negative) 12/11/18 16:46 Urine Blood Negative (Negative) 12/11/18 16:46 Urine Nitrite Negative (Negative) 12/11/18 16:46 Urine Bilirubin Small (Negative) H 12/11/18 16:46 Urine Urobilinogen 2.0 EU/dL (Up TO 0.2) H 12/11/18 16:46 Ur Leukocyte Esterase Negative (Negative) 12/11/18 16:46 Urine Glucose Negative mg/dL (Negative) 12/11/18 16:46 Urine Opiates Screen Negative (Negative) 12/11/18 16:45 Urine Methadone Screen Negative (Negative) 12/11/18 16:45 Acetaminophen < 2 ug/mL (10-30) L 12/12/18 06:40 Ur Barbiturates Screen Negative (Negative) 12/11/18 16:45 Ur Tricyclics Screen Negative (Negative) 12/11/18 16:45 Ur Amphetamines Screen Negative (Negative) 12/11/18 16:45 U Benzodiazepines Scrn Negative (Negative) 12/11/18 16:45 Urine Cocaine Screen Negative (Negative) 12/11/18 16:45 Ur THC Screen Negative (Negative) 12/11/18 16:45 Ethyl Alcohol < 3.0 mg/dL (<3) 12/11/18 16:46 ABG, repeat CT head, CT chest, abdomen, pelvis, XR LLE pending
[2018-12-12 08:34] LABS: Procalcitonin 11.6 ng/mL
[2018-12-12] MEDS: Dextrose 50%-Water 25 GM/50 ML SYR IVP (08:55)
[2018-12-12] MEDS: Pantoprazole 40 MG VIAL IVP (08:56)
[2018-12-12] MEDS: Normal Saline Flush 10 ML SYR IVP (08:56)
[2018-12-12] MEDS: Insulin REGULAR-Human 100 UNITS/ML UNIT 10 UNITS SC (08:57)
--- NOTE | 2018-12-12 11:18 | INITIAL_ITS ---
- If Service Date Differs Date of service: 12/12/18 Time of Service: 11:18 Care Management Initial Assess REASON FOR HOSPITALIZATION:: Pnuemonia, renal failure, jaundice PAST MEDICAL HISTORY/PAST SURGICAL HISTORY:: Medical History. Anxiety (Chronic). Chronic acquired lymphedema (Acute). Cirrhosis of liver (Acute). Degenerative disc disease (Acute). Depression (Chronic). Diastolic CHF (Chronic). Fatty liver (Acute). Hx of esophageal varices (Acute). Iron deficiency anemia (Acute). Morbid obesity (Acute). Myelodysplasia (myelodysplastic syndrome) (Acute). Osteoarthritis (Chronic). PTSD (post- traumatic stress disorder) (Acute). Sleep apnea (Acute). Thrombocythemia (Acute). Type 2 diabetes mellitus (Chronic) PREVIOUS FUNCTIONAL STATUS/SOCIAL/FAMILY SUPPORTS:: 73 yr old female former resident of [place], [place] who had a prolonged stay at [facility] for anxiety and depression (reportedly 4 months d/t inability to place her in outpatient setting). Currently she lives in an [facility] home with home care provider Karen Amaro. Chasity Valero is her pillowcase cleaner from [facility]. CURRENT FUNCTIONAL STATUS:: Tammy was lying in bed when CM met with her. She was unable to communicate with CM. 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 CM met with Chasity, her pillowcase cleaner from [facility], and provided comfort and support. CM also contacted Karen, her home care provider, who reported that she would be by her side soon. CM will follow and continue to provide support to Tammy's caregivers. 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 She was placed in an AF home through [facility]. During her previous admission, CM connected her with adult outpatient services through [facility] in [place]. She also goes to [facility]. PRIMARY CARE PHYSICIAN:: Zulay Barth POTENTIAL DISCHARGE NEEDS:: Evaluations for further needs, potential transfer to tertiary care facility PATIENT/FAMILY EDUCATION NEEDS:: Review of community based supports ANTICIPATED BARRIERS TO DISCHARGE:: None identified at this time. TRANSPORTATION:: To be determined. PLAN:: Per MD, Tammy has been transitioned to ALGEBRA TEACHER due to multi organ system failure. CM will continue to follow and provide support to Tammy and her caregivers.
[2018-12-12 12:31] LABS: Lactate 2.3 mmol/L (0.6-1.4)
--- NOTE | 2018-12-12 13:37 | DI.RAD_ITS ---
EXAM: XR TIB/FIB LT CLINICAL HISTORY: LLE pain, hematoma TECHNIQUE: Four views of the femur and four views of the leg were obtained. COMPARISON: XR HIP PELVIS ADULT BL from 10/25/2018 XR FEMUR LT from 12/12/2018 FINDINGS: There is a severely comminuted, markedly displaced fracture of the distal femur, which extends throug h the distal articular surface with marked separation of the condyles and apparent shortening of the bone. No tibial or fibular fracture seen. Patella not ideally evaluated but no definite patellar fra cture is seen.
--- NOTE | 2018-12-12 13:38 | DI.CT_ITS ---
EXAM: CT HEAD WO CLINICAL HISTORY: ?subdural hematoma TECHNIQUE: COMPARISON: CT HEAD WO from 12/11/2018 FINDINGS: There is moderate generalized cerebral atrophy. There is no evidence of acute intracranial hemorrhag e mass effect or midline shift. The orbital and temporal bone structures appear intact. Paranasal s inuses and mastoid air cells appear clear as visualized. IMPRESSION: No evidence of acute intracranial process.
--- NOTE | 2018-12-12 13:46 | DI.CT_ITS ---
EXAM: CT CHEST/ABD/PEL WO CLINICAL HISTORY: abdominal pain, ?ascites/SBP - no IV or PO contras TECHNIQUE: CT examination of the abdomen and pelvis was performed without contrast administration. COMPARISON: No exams were available for comparison FINDINGS: There are multiple areas of apparent intrapulmonary consolidation. Cardiac size is increased. Minim al left pleural effusion noted. No giancarlo pulmonary edema seen. Tracheobronchial tree appears grossl y intact. There is moderate abdominal ascites. Liver is small and nodular and spleen is enlarged, the findings are consistent with cirrhosis and portal venous hypertension. Collateral vessels identified in uppe r abdomen also consistent with this diagnosis. Gallbladder is distended which is a nonspecific findi ng. Pancreas poorly visualized but grossly unremarkable although atrophic. Adrenals and kidneys unremarkable. No evidence of urinary tract calcification or obstruction. Abdom inal aorta is of normal diameter. There is a very large quantity of fecal material in the rectum con sistent with constipation. There is marked wall thickening of the colon predominantly involving ascending and transverse colon. Terminal ileum also shows mild wall edema. Remainder of the small bowel is predominantly unremarkab le. No evidence of small bowel obstruction. Christy catheter noted in urinary bladder. COMP FIELD CASE MANAGER structure s grossly unremarkable. No gross abdominal or pelvic adenopathy. IMPRESSION: 1. Findings consistent with multifocal pneumonia 2. Hepatic cirrhosis and presumed portal venous hypertension with associated upper abdominal varices and splenomegaly. 3. Findings highly suggestive of colitis, uncertain etiology; inflammatory, infectious or ischemic ca uses should be considered. 4. Large quantity of rectal fecal material consistent with constipation.
[2018-12-12] MEDS: ALBUMIN HUMAN 25 GM/100 ML BTL IV (13:59)
--- NOTE | 2018-12-12 14:01 | PHARADMIT ---
Admission Pharmacy Clinical Review Code Status Full Code Current Weight 122.1 kg Renally Cleared and Narrow Therapeutic Index Meds CrCl ~26.1ml/min using adjusted BW QTc Value / Action Taken QTc 448 BP Control, Fever BP 95/67, afebrile Electrolytes reviewed Na 132, K+ 5.6, Mag 3.3 DVT Prophylaxis None Opiate Usage / Scheduled Bowel Regimen Ordered Plt/SCr for Heparin / Enoxaparin Plt 161, Scr 2.68 INR for Warfarin INR 2.0 H/H stable, WBC/Bands H/H 8.1/25.5, WBC 11.19 Antibiotic appropriateness Levofloxacin 500mg q48h, Vanco 1gm q30h Cultures and Sensitivities Blood cultures pending Surgical ABX d/c within 24 hr DM control / Insulin Dosing 10 units Humalog given in AM, aspart per SS Heart Failure (Check EF%) (HECTOR's, B-Block, Diuretics) spironolactone, torsemide IV to PO Switch currently npo Home Meds Reviewed Yes - multiple serotonergic agents, QT prolongation, agents lowering seizure threshold Home Meds Not Ordered Bupropion, citalopram, calcium/vitd, ferrous sulfate, gabapentin, hydroxyzine, lactulose, lidocaine patch, lorazepam, ondansetron, xifaxan, senna, spironolactone, torsemide, tramadol Comments Receiving Albumin 100 grams (25g x4 doses) today and tomorrow (Albumin level 1.8) As of this afternoon - pt rapidly deteriorating and is [employer] as any attempts for resuscitation would be futile per MD and surgeon
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
--- NOTE | 2018-12-12 14:20 | PGE_ITS ---
Date of Service Date of service: 12/12/18 Time of Service: 14:20 Subjective Subjective Interval history since last seen: Ms Farr's clinical status has rapidly deteriorated. She is now unresponsive to painful or verbal stimuli, respiratory status is worse, and her SBP is in the 60's. She is in septic shock and dying. She does have pneumonia (multifocal) by CT. No subudral. L femur is fractured. She also has severe colitis (? C.Diff). Dr Lopez and myself have evaluated the patient at this time, and feel that cardiac and rescuscitation for Ms Farr would be futile and that she is actively dying. At this point, the most ap propriate course of treatment is comfort measures only. Total Critical Care Time 35 minutes. Objective Objective Clinical Data: Abnormal lab results 12/11/18 12/11/18 12/11/18 Range/Units 16:46 16:46 16:46 WBC 11.14 H (4.4-10.8) k/cumm RBC 2.92 L (4.00-5.20) m/cumm Hgb 8.6 L (12.0-15.5) g/dL Hct 27.1 L (36.0-46.0) % MCHC 31.7 L (32.0-36.0) g/dL RDW 17.3 H (11.7-14.6) % Absolute Neutrophils 8.91 H (1.2-6.7) k/cumm PT (9.3-11.0) sec INR (0.9-1.1) APTT (21.0-31.4) sec VBG pH (7.32-7.43) VBG pCO2 (34-47) mm/Hg VBG pO2 (28-44) mm/Hg VBG O2 Saturation (70-80) % Sodium 129 L (136-145) mmol/L Potassium 6.1 H* (3.5-5.1) mmol/L Chloride 94 L (98-107) mmol/L Anion Gap 11.7 H (3-11) mmol/L BUN 109 H* (7-18) mg/dL Creatinine 2.83 H (0.55-1.02) mg/dL Glucose 210 H (70-100) mg/dL Lactate (0.6-1.4) mmol/L Calcium 8.0 L (8.5-10.1) mg/dL Magnesium 3.3 H (1.8-2.4) mg/dL Iron (50-175) ug/dL TIBC (250-450) ug/dL Transferrin % Sat (15-50) % Total Bilirubin 6.6 H (0.2-1.0) mg/dL Conjugated Bilirubin (0.00-0.20) mg/dL AST 124 H (15-37) U/L Alkaline Phosphatase 162 H (46-116) U/L Ammonia (11-32) umol/L Creatine Kinase 350 H (26-192) U/L C-Reactive Protein (0.0-0.3) mg/dL NT-Pro-B Natriuret Pep ( - 299) pg/mL Total Protein 5.8 L (6.4-8.2) g/dL Albumin 1.8 L (3.4-5.0) g/dL Urine Bilirubin (Negative) Urine Urobilinogen (Up TO 0.2) EU/dL Acetaminophen (10-30) ug/mL 12/11/18 12/11/18 12/11/18 Range/Units 16:46 16:46 16:46 WBC (4.4-10.8) k/cumm RBC (4.00-5.20) m/cumm Hgb (12.0-15.5) g/dL Hct (36.0-46.0) % MCHC (32.0-36.0) g/dL RDW (11.7-14.6) % Absolute Neutrophils (1.2-6.7) k/cumm PT 19.2 H (9.3-11.0) sec INR 1.9 H (0.9-1.1) APTT 36.5 H (21.0-31.4) sec VBG pH (7.32-7.43) VBG pCO2 (34-47) mm/Hg VBG pO2 (28-44) mm/Hg VBG O2 Saturation (70-80) % Sodium (136-145) mmol/L Potassium (3.5-5.1) mmol/L Chloride (98-107) mmol/L Anion Gap (3-11) mmol/L BUN (7-18) mg/dL Creatinine (0.55-1.02) mg/dL Glucose (70-100) mg/dL Lactate (0.6-1.4) mmol/L Calcium (8.5-10.1) mg/dL Magnesium (1.8-2.4) mg/dL Iron (50-175) ug/dL TIBC (250-450) ug/dL Transferrin % Sat (15-50) % Total Bilirubin (0.2-1.0) mg/dL Conjugated Bilirubin (0.00-0.20) mg/dL AST (15-37) U/L Alkaline Phosphatase (46-116) U/L Ammonia (11-32) umol/L Creatine Kinase (26-192) U/L C-Reactive Protein (0.0-0.3) mg/dL NT-Pro-B Natriuret Pep 1264 H ( - 299) pg/mL Total Protein (6.4-8.2) g/dL Albumin (3.4-5.0) g/dL Urine Bilirubin Small H (Negative) Urine Urobilinogen 2.0 H (Up TO 0.2) EU/dL Acetaminophen (10-30) ug/mL 12/11/18 12/12/18 12/12/18 Range/Units 16:46 06:40 06:40 WBC 11.19 H (4.4-10.8) k/cumm RBC 2.77 L (4.00-5.20) m/cumm Hgb 8.1 L (12.0-15.5) g/dL Hct 25.5 L (36.0-46.0) % MCHC 31.8 L (32.0-36.0) g/dL RDW 17.3 H (11.7-14.6) % Absolute Neutrophils (1.2-6.7) k/cumm PT (9.3-11.0) sec INR (0.9-1.1) APTT (21.0-31.4) sec VBG pH (7.32-7.43) VBG pCO2 (34-47) mm/Hg VBG pO2 (28-44) mm/Hg VBG O2 Saturation (70-80) % Sodium 132 L (136-145) mmol/L Potassium 5.6 H (3.5-5.1) mmol/L Chloride 97 L (98-107) mmol/L Anion Gap 12.7 H (3-11) mmol/L BUN 107 H* (7-18) mg/dL Creatinine 2.68 H (0.55-1.02) mg/dL Glucose 177 H (70-100) mg/dL Lactate (0.6-1.4) mmol/L Calcium 7.8 L (8.5-10.1) mg/dL Magnesium (1.8-2.4) mg/dL Iron 12 L (50-175) ug/dL TIBC 198 L (250-450) ug/dL Transferrin % Sat 6 L (15-50) % Total Bilirubin (0.2-1.0) mg/dL Conjugated Bilirubin (0.00-0.20) mg/dL AST (15-37) U/L Alkaline Phosphatase (46-116) U/L Ammonia (11-32) umol/L Creatine Kinase (26-192) U/L C-Reactive Protein (0.0-0.3) mg/dL NT-Pro-B Natriuret Pep ( - 299) pg/mL Total Protein (6.4-8.2) g/dL Albumin (3.4-5.0) g/dL Urine Bilirubin (Negative) Urine Urobilinogen (Up TO 0.2) EU/dL Acetaminophen (10-30) ug/mL 12/12/18 12/12/18 12/12/18 Range/Units 06:40 06:40 07:50 WBC (4.4-10.8) k/cumm RBC (4.00-5.20) m/cumm Hgb (12.0-15.5) g/dL Hct (36.0-46.0) % MCHC (32.0-36.0) g/dL RDW (11.7-14.6) % Absolute Neutrophils (1.2-6.7) k/cumm PT 20.1 H (9.3-11.0) sec INR 2.0 H (0.9-1.1) APTT (21.0-31.4) sec VBG pH 7.48 H (7.32-7.43) VBG pCO2 31 L (34-47) mm/Hg VBG pO2 98 H (28-44) mm/Hg VBG O2 Saturation 98 H (70-80) % Sodium (136-145) mmol/L Potassium (3.5-5.1) mmol/L Chloride (98-107) mmol/L Anion Gap (3-11) mmol/L BUN (7-18) mg/dL Creatinine (0.55-1.02) mg/dL Glucose (70-100) mg/dL Lactate (0.6-1.4) mmol/L Calcium (8.5-10.1) mg/dL Magnesium (1.8-2.4) mg/dL Iron (50-175) ug/dL TIBC (250-450) ug/dL Transferrin % Sat (15-50) % Total Bilirubin 6.8 H (0.2-1.0) mg/dL Conjugated Bilirubin 5.42 H (0.00-0.20) mg/dL AST 136 H (15-37) U/L Alkaline Phosphatase (46-116) U/L Ammonia (11-32) umol/L Creatine Kinase (26-192) U/L C-Reactive Protein > 25.00 H (0.0-0.3) mg/dL NT-Pro-B Natriuret Pep ( - 299) pg/mL Total Protein (6.4-8.2) g/dL Albumin (3.4-5.0) g/dL Urine Bilirubin (Negative) Urine Urobilinogen (Up TO 0.2) EU/dL Acetaminophen < 2 L (10-30) ug/mL 12/12/18 12/12/18 12/12/18 Range/Units 07:50 07:50 12:22 WBC (4.4-10.8) k/cumm RBC (4.00-5.20) m/cumm Hgb (12.0-15.5) g/dL Hct (36.0-46.0) % MCHC (32.0-36.0) g/dL RDW (11.7-14.6) % Absolute Neutrophils (1.2-6.7) k/cumm PT (9.3-11.0) sec INR (0.9-1.1) APTT (21.0-31.4) sec VBG pH (7.32-7.43) VBG pCO2 (34-47) mm/Hg VBG pO2 (28-44) mm/Hg VBG O2 Saturation (70-80) % Sodium (136-145) mmol/L Potassium (3.5-5.1) mmol/L Chloride (98-107) mmol/L Anion Gap (3-11) mmol/L BUN (7-18) mg/dL Creatinine (0.55-1.02) mg/dL Glucose (70-100) mg/dL Lactate 2.7 H* 2.3 H* (0.6-1.4) mmol/L Calcium (8.5-10.1) mg/dL Magnesium (1.8-2.4) mg/dL Iron (50-175) ug/dL TIBC (250-450) ug/dL Transferrin % Sat (15-50) % Total Bilirubin (0.2-1.0) mg/dL Conjugated Bilirubin (0.00-0.20) mg/dL AST (15-37) U/L Alkaline Phosphatase (46-116) U/L Ammonia 43 H (11-32) umol/L Creatine Kinase (26-192) U/L C-Reactive Protein (0.0-0.3) mg/dL NT-Pro-B Natriuret Pep ( - 299) pg/mL Total Protein (6.4-8.2) g/dL Albumin (3.4-5.0) g/dL Urine Bilirubin (Negative) Urine Urobilinogen (Up TO 0.2) EU/dL Acetaminophen (10-30) ug/mL Vital Signs Temperature 35.8 C L 12/12/18 08:30 Temperature Source Temporal Artery Scan 12/12/18 08:30 Pulse 70 12/12/18 14:00 Pulse Rhythm Regular 12/11/18 17:18 Pulse Strength Normal 12/11/18 17:18 Pulse 70 12/12/18 14:00 Respiratory Rate 8 L 12/12/18 14:00 Respiratory Effort Non-Labored 12/12/18 08:30 Respiratory Depth Normal 12/12/18 08:30 Respiratory Pattern Normal 12/12/18 08:30 Blood Pressure 95/67 L 12/12/18 14:00 Blood Pressure Mean 74 12/12/18 14:00 Blood Pressure Position Supine 12/12/18 08:30 Pulse Oximetry 97 12/12/18 14:00 Oxygen Delivery Method Room Air 12/12/18 08:30 Oxygen Flow Rate 0 12/12/18 08:30 Comment 12/11/18 21:37 Intake & Output 12/11/18 12/12/18 12/12/18 23:59 11:59 23:59 Intake Total 1026.667 / 1026.667 633.333 / 633.333 Output Total 235 / 735 500 / 735 Balance 1026.667 / 1026.667 398.333 / -101.667 -500 / -101.667 Weight 122.1 kg 122.1 kg Intake: IV 1026.667 / 1026.667 633.333 / 633.333 Output: Urine 235 / 735 500 / 735 Other: Urine Color Dark Gloria Dark Gloria Urine Appearance Cloudy Clear Comment Depends in place. Laboratory Results WBC 11.19 k/cumm (4.4-10.8) H 12/12/18 06:40 RBC 2.77 m/cumm (4.00-5.20) L 12/12/18 06:40 Hgb 8.1 g/dL (12.0-15.5) L 12/12/18 06:40 Hct 25.5 % (36.0-46.0) L 12/12/18 06:40 MCV 92.1 fL (80-95) 12/12/18 06:40 MCH 29.2 pg (27.0-33.0) 12/12/18 06:40 MCHC 31.8 g/dL (32.0-36.0) L 12/12/18 06:40 RDW 17.3 % (11.7-14.6) H 12/12/18 06:40 Plt Count 161 x1000/uL (130-400) 12/12/18 06:40 MPV 10.7 fL (8.0-11.0) 12/12/18 06:40 Immature Gran % 0.0 12/11/18 16:46 Neutrophils % 80.0 12/11/18 16:46 Band Neutrophils % 0.0 % 12/11/18 16:46 Lymphocytes % 9.0 12/11/18 16:46 Atypical Lymphs % 8 12/11/18 16:46 Monocytes % 3.0 12/11/18 16:46 Eosinophils % 0.0 12/11/18 16:46 Basophils % 0.0 12/11/18 16:46 Absolute Neutrophils 8.91 k/cumm (1.2-6.7) H 12/11/18 16:46 Absolute Lymphocytes 1.89 k/cumm (1.2-3.4) 12/11/18 16:46 Absolute Monocytes 0.33 k/cumm (0.11-0.7) 12/11/18 16:46 Absolute Eosinophils 0.00 k/cumm (0.0-0.7) 12/11/18 16:46 Absolute Basophils 0.00 k/cumm (0.0-0.2) 12/11/18 16:46 Differential Comment Manual differential 12/11/18 16:46 RBC Morphology See below 12/11/18 16:46 Polychromasia Present 12/11/18 16:46 Macrocytosis 1+ 12/11/18 16:46 PT 20.1 sec (9.3-11.0) H 12/12/18 06:40 INR 2.0 (0.9-1.1) H 12/12/18 06:40 APTT 36.5 sec (21.0-31.4) H 12/11/18 16:46 VBG pH 7.48 (7.32-7.43) H 12/12/18 07:50 VBG pCO2 31 mm/Hg (34-47) L 12/12/18 07:50 VBG pO2 98 mm/Hg (28-44) H 12/12/18 07:50 VBG HCO3 23 mmol/L (22-28) 12/12/18 07:50 VBG Total CO2 22 mmol/L (22-29) 12/12/18 07:50 VBG O2 Saturation 98 % (70-80) H 12/12/18 07:50 VBG Base Excess -0.6 mmol/L (-3-3) 12/12/18 07:50 Sodium 132 mmol/L (136-145) L 12/12/18 06:40 Potassium 5.6 mmol/L (3.5-5.1) H 12/12/18 06:40 Chloride 97 mmol/L (98-107) L 12/12/18 06:40 Carbon Dioxide 22.3 mmol/L (21.0-32.0) 12/12/18 06:40 Anion Gap 12.7 mmol/L (3-11) H 12/12/18 06:40 BUN 107 mg/dL (7-18) H* 12/12/18 06:40 Creatinine 2.68 mg/dL (0.55-1.02) H 12/12/18 06:40 Estimated GFR/1.73 m2 17.52 (mL/min/1.73m2) 12/12/18 06:40 Glucose 177 mg/dL (70-100) H 12/12/18 06:40 Lactate 2.3 mmol/L (0.6-1.4) H* 12/12/18 12:22 Calcium 7.8 mg/dL (8.5-10.1) L 12/12/18 06:40 Magnesium 3.3 mg/dL (1.8-2.4) H 12/11/18 16:46 Iron 12 ug/dL (50-175) L 12/11/18 16:46 TIBC 198 ug/dL (250-450) L 12/11/18 16:46 Transferrin % Sat 6 % (15-50) L 12/11/18 16:46 Ferritin 127 ng/mL (8-388) 12/11/18 16:46 Total Bilirubin 6.8 mg/dL (0.2-1.0) H 12/12/18 06:40 Conjugated Bilirubin 5.42 mg/dL (0.00-0.20) H 12/12/18 06:40 AST 136 U/L (15-37) H 12/12/18 06:40 ALT 55 U/L (14-59) 12/12/18 06:40 Alkaline Phosphatase 162 U/L (46-116) H 12/11/18 16:46 Ammonia 43 umol/L (11-32) H 12/12/18 07:50 Creatine Kinase 350 U/L (26-192) H 12/11/18 16:46 Troponin I < 0.05 ng/mL (0.00-0.06) 12/11/18 16:46 C-Reactive Protein > 25.00 mg/dL (0.0-0.3) H 12/12/18 06:40 NT-Pro-B Natriuret Pep 1264 pg/mL (-299) H 12/11/18 16:46 Total Protein 5.8 g/dL (6.4-8.2) L 12/11/18 16:46 Albumin 1.8 g/dL (3.4-5.0) L 12/11/18 16:46 Procalcitonin 11.6 ng/mL 12/12/18 07:50 TSH 2.08 uIU/mL (0.36-3.74) 12/12/18 06:40 Urine Color Yellow (Yellow) 12/11/18 16:46 Urine Clarity Clear (Clear) 12/11/18 16:46 Urine pH 5.0 (5-8) 12/11/18 16:46 Ur Specific [place] 1.015 (1.005-1.025) 12/11/18 16:46 Urine Protein Negative mg/dL (Negative) 12/11/18 16:46 Urine Ketones Negative mg/dL (Negative) 12/11/18 16:46 Urine Blood Negative (Negative) 12/11/18 16:46 Urine Nitrite Negative (Negative) 12/11/18 16:46 Urine Bilirubin Small (Negative) H 12/11/18 16:46 Urine Urobilinogen 2.0 EU/dL (Up TO 0.2) H 12/11/18 16:46 Ur Leukocyte Esterase Negative (Negative) 12/11/18 16:46 Urine Glucose Negative mg/dL (Negative) 12/11/18 16:46 Urine Opiates Screen Negative (Negative) 12/11/18 16:45 Urine Methadone Screen Negative (Negative) 12/11/18 16:45 Acetaminophen < 2 ug/mL (10-30) L 12/12/18 06:40 Ur Barbiturates Screen Negative (Negative) 12/11/18 16:45 Ur Tricyclics Screen Negative (Negative) 12/11/18 16:45 Ur Amphetamines Screen Negative (Negative) 12/11/18 16:45 U Benzodiazepines Scrn Negative (Negative) 12/11/18 16:45 Urine Cocaine Screen Negative (Negative) 12/11/18 16:45 Ur THC Screen Negative (Negative) 12/11/18 16:45 Ethyl Alcohol < 3.0 mg/dL (<3) 12/11/18 16:46
--- NOTE | 2018-12-12 15:02 | NUR.NOTE ---
Nursing Note: Patient's skin assessment is as follows: Bruises as follows: Chin Scattered bruises on Bilateral UE's and LE's Anterior Left upper abdomen to anterior mid thigh Lateral 4th intercostal space to lateral upper thigh Posterior right lower back Posterior right sacrum Posterior right buttock Anterior Left knee Large blood blister on right heel
--- NOTE | 2018-12-12 18:50 | NUR.NOTE ---
Nursing Note: Patient has been on [employer] since 1450 this afternoon. Patient currently is resting quietly with eyes closed with her caregiver at bedside. No respiratory distress note at this time.
[2018-12-12] MEDS: LORazepam 2 MG/ML VIAL IV/SC (23:04)
[2018-12-13] MEDS: Normal Saline Flush 10 ML SYR IVP ×4 (08:43→15:43)
[2018-12-13] MEDS: LORazepam 2 MG/ML VIAL IV/SC ×3 (08:43→13:10)
[2018-12-13 11:31] LABS: Hepatitis A Antibody IgM Negative (NEGAT); Hepatitis B Core Antibody Negative (NEGAT); Hepatitis B surface Ag Negative (NEGAT); Hepatitis C Ab w Rflx HCV PCR Negative (NEGAT)
[2018-12-13] MEDS: MORPHine 2 MG/ML SYR IV/SC ×2 (12:07→13:11)
[2018-12-13 13:00] VITALS: PULSE 86; RESP 10
--- NOTE | 2018-12-13 13:58 | W.PM.PROGNOT ---
Date of Service Date of service: 12/13/18 Time of Service: 13:58 Assessment and Plan Assessment and plan (1) Multiorgan failure: Status: Acute Assessment and plan: Encephalopathy, respiratory failure, acute liver failure with jaundice, coagulopathy, hypoalbuminemic state, acute kidney failure (?hepatorenal failure) with hyperkalemia. Trigger is likely sepsis which is also multifactorial (multifocal pneumonia, Colitis - ?C.Diff, suspected SBP). Tammy is dying, was made DNR/DNI by 2 physician consent that the treatment of patient would be medically futile, and was initiated on comfort measures yesterday. As her requirement for morphine appears to be increasing, we will initiate a morphine pump. Palliative care is consulted but unavailable. (2) Subdural hematoma: Status: Ruled-out Assessment and plan: Repeat CT head neg. (3) Toxic metabolic encephalopathy: Status: Acute Assessment and plan: As above (4) Acute liver failure: Status: Acute Assessment and plan: The patient has a history of cirrhosis, hyperammonemia/hepatic encephalopathy, as well as coagulopathy, jaundice, hypoalbuminemia. She has a history of varices, but thankfully does not appear to be actively having a GI bleed (hemoccult is ordered). Triggers of decompensated cirrhosis could be sepsis due to ?SBP, colitis, multifocal pneumonia. No further workup as we are focusing on comfort measures only. (5) Acute kidney failure: Status: Acute Assessment and plan: Hepatorenal failure high on differential. As above (6) Acute respiratory failure: Status: Acute Assessment and plan: Multifactorial. Provide symptom management with IV morphine and ativan. (7) Sepsis: Status: Suspected Assessment and plan: Multifactorial, due to multifocal pneumonia, suspected SBP, colitis (suspected C.DIff). No longer on antibiotics - focusing on comfort measures. (8) SBP (spontaneous bacterial peritonitis): Status: Suspected Assessment and plan: Suspected. Provide symptomatic management. No longer on antibiotics as on comfort measures. (9) Hyperkalemia: Status: Acute Assessment and plan: No longer monitoring labs. Due to JHON. (10) Cirrhosis of liver: Status: Chronic Assessment and plan: As above (11) Type 2 diabetes mellitus: Status: Chronic Assessment and plan: Not monitoring BGs on comfort care. 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 No longer monitoring labs. (13) Depression: Status: Chronic Assessment and plan: Holding PO meds Qualifiers: Depression Type: major depressive disorder Major depression recurrence: recurrent Active/Remission status: currently active Major depression episode severity: moderate Qualified Code(s): F33.1 - Major depressive disorder, recurrent, moderate (14) Anxiety: Status: Chronic Assessment and plan: Holding PO meds. (15) Sleep apnea: Status: Chronic Assessment and plan: Focusing on comfort measures only. (16) Acute on chronic anemia: Status: Acute Assessment and plan: No longer monitoring. (17) Ambulatory dysfunction: Status: Acute Assessment and plan: Likely due to the L femoral fx. Provide prn morphine for comfort. (18) Acute colitis: Status: Acute Assessment and plan: Suspected C.Diff. Focus on comfort care (19) Multifocal pneumonia: Status: Acute Assessment and plan: present on admission. Focus on symptom management under comfort care (20) Closed left femoral fracture: Status: Acute Assessment and plan: Not a good operative candidate given overall medical condition. Focus on comfort measures. (21) DVT prophylaxis: Status: Acute Assessment and plan: Focus on comfort measures. (22) Discharge planning issues: Status: Acute Assessment and plan: Made DNR/DNI by 2 physician declaration of futility of medical therapy and made comfort care only on 12/12/18. Subjective Subjective Interval history since last seen: Ms Farr apparently woke up for a couple of hours last night and ate some ice cream - however, since then she has been unarousable, having long episodes of apnea (longer than 10-12 seconds), not responding to verbal cues and not following commands. Her eyes have remained open. She has required multiple doses of morphine IV today. Exam Narrative Exam Narrative: General: Unresponsive obese female who is having long apneic episodes and looks like she is dying; comfortable HEENT: Eyes open, dry MM, +JVD Heart: RRR, no m/r/g Lungs: apneic breathing pattern GI: abdomen is soft, obese, distended Extremities: 3+ pitting edema B, hematoma L knee, hip Objective Objective Clinical Data: Vital Signs Temperature 36.3 C L 12/12/18 13:50 Temperature Source Temporal Artery Scan 12/12/18 13:50 Pulse 70 12/12/18 14:00 Pulse Rhythm Regular 12/11/18 17:18 Pulse Strength Normal 12/11/18 17:18 Pulse 70 12/12/18 14:00 Respiratory Rate 8 L 12/12/18 14:00 Respiratory Effort 12/13/18 08:56 Respiratory Depth Deep 12/13/18 08:56 Respiratory Pattern Bradypnea 12/13/18 08:56 Blood Pressure 95/67 L 12/12/18 14:00 Blood Pressure Mean 74 12/12/18 14:00 Blood Pressure Position Supine 12/12/18 13:50 Pulse Oximetry 97 12/12/18 14:00 Oxygen Delivery Method Room Air 12/12/18 13:50 Oxygen Flow Rate 0 12/12/18 13:50 Pain Level 0 12/13/18 12:15 Comment 12/11/18 21:37 Intake & Output 12/12/18 12/13/18 12/13/18 23:59 11:59 23:59 Intake Total 1201.334 / 1834.667 Output Total 500 / 735 800 / 1200 400 / 1200 Balance 701.334 / 1099.667 -800 / -1200 -400 / -1200 Intake: IV 1201.334 / 1834.667 Output: Urine 500 / 735 800 / 1200 400 / 1200 Other: Urine Color Dallam Dark Omar Urine Appearance Clear Clear Comment Christy intact and draining cloudy dark omar urine. Laboratory Results WBC 11.19 k/cumm (4.4-10.8) H 12/12/18 06:40 RBC 2.77 m/cumm (4.00-5.20) L 12/12/18 06:40 Hgb 8.1 g/dL (12.0-15.5) L 12/12/18 06:40 Hct 25.5 % (36.0-46.0) L 12/12/18 06:40 MCV 92.1 fL (80-95) 12/12/18 06:40 MCH 29.2 pg (27.0-33.0) 12/12/18 06:40 MCHC 31.8 g/dL (32.0-36.0) L 12/12/18 06:40 RDW 17.3 % (11.7-14.6) H 12/12/18 06:40 Plt Count 161 x1000/uL (130-400) 12/12/18 06:40 MPV 10.7 fL (8.0-11.0) 12/12/18 06:40 Immature Gran % 0.0 12/11/18 16:46 Neutrophils % 80.0 12/11/18 16:46 Band Neutrophils % 0.0 % 12/11/18 16:46 Lymphocytes % 9.0 12/11/18 16:46 Atypical Lymphs % 8 12/11/18 16:46 Monocytes % 3.0 12/11/18 16:46 Eosinophils % 0.0 12/11/18 16:46 Basophils % 0.0 12/11/18 16:46 Absolute Neutrophils 8.91 k/cumm (1.2-6.7) H 12/11/18 16:46 Absolute Lymphocytes 1.89 k/cumm (1.2-3.4) 12/11/18 16:46 Absolute Monocytes 0.33 k/cumm (0.11-0.7) 12/11/18 16:46 Absolute Eosinophils 0.00 k/cumm (0.0-0.7) 12/11/18 16:46 Absolute Basophils 0.00 k/cumm (0.0-0.2) 12/11/18 16:46 Differential Comment Manual differential 12/11/18 16:46 RBC Morphology See below 12/11/18 16:46 Polychromasia Present 12/11/18 16:46 Macrocytosis 1+ 12/11/18 16:46 PT 20.1 sec (9.3-11.0) H 12/12/18 06:40 INR 2.0 (0.9-1.1) H 12/12/18 06:40 APTT 36.5 sec (21.0-31.4) H 12/11/18 16:46 Sample Site Cancelled 12/12/18 12:44 pCO2 Cancelled 12/12/18 12:44 pO2 Cancelled 12/12/18 12:44 O2 Saturation Cancelled 12/12/18 12:44 ABG pH Cancelled 12/12/18 12:44 ABG HCO3 Cancelled 12/12/18 12:44 ABG Total CO2 Cancelled 12/12/18 12:44 ABG Base Excess Cancelled 12/12/18 12:44 VBG pH 7.48 (7.32-7.43) H 12/12/18 07:50 VBG pCO2 31 mm/Hg (34-47) L 12/12/18 07:50 VBG pO2 98 mm/Hg (28-44) H 12/12/18 07:50 VBG HCO3 23 mmol/L (22-28) 12/12/18 07:50 VBG Total CO2 22 mmol/L (22-29) 12/12/18 07:50 VBG O2 Saturation 98 % (70-80) H 12/12/18 07:50 VBG Base Excess -0.6 mmol/L (-3-3) 12/12/18 07:50 Oxygen Liter Flow Cancelled 12/12/18 12:44 FiO2 Cancelled 12/12/18 12:44 Sodium Cancelled 12/12/18 14:30 Potassium Cancelled 12/12/18 14:30 Chloride Cancelled 12/12/18 14:30 Carbon Dioxide Cancelled 12/12/18 14:30 Anion Gap Cancelled 12/12/18 14:30 BUN Cancelled 12/12/18 14:30 Creatinine Cancelled 12/12/18 14:30 Estimated GFR/1.73 m2 Cancelled 12/12/18 14:30 Glucose Cancelled 12/12/18 14:30 Lactate 2.3 mmol/L (0.6-1.4) H* 12/12/18 12:22 Calcium Cancelled 12/12/18 14:30 Magnesium 3.3 mg/dL (1.8-2.4) H 12/11/18 16:46 Iron 12 ug/dL (50-175) L 12/11/18 16:46 TIBC 198 ug/dL (250-450) L 12/11/18 16:46 Transferrin % Sat 6 % (15-50) L 12/11/18 16:46 Ferritin 127 ng/mL (8-388) 12/11/18 16:46 Total Bilirubin 6.8 mg/dL (0.2-1.0) H 12/12/18 06:40 Conjugated Bilirubin 5.42 mg/dL (0.00-0.20) H 12/12/18 06:40 AST 136 U/L (15-37) H 12/12/18 06:40 ALT 55 U/L (14-59) 12/12/18 06:40 Alkaline Phosphatase 162 U/L (46-116) H 12/11/18 16:46 Ammonia 43 umol/L (11-32) H 12/12/18 07:50 Creatine Kinase 350 U/L (26-192) H 12/11/18 16:46 Troponin I < 0.05 ng/mL (0.00-0.06) 12/11/18 16:46 C-Reactive Protein > 25.00 mg/dL (0.0-0.3) H 12/12/18 06:40 NT-Pro-B Natriuret Pep 1264 pg/mL (-299) H 12/11/18 16:46 Total Protein 5.8 g/dL (6.4-8.2) L 12/11/18 16:46 Albumin 1.8 g/dL (3.4-5.0) L 12/11/18 16:46 Procalcitonin 11.6 ng/mL 12/12/18 07:50 TSH 2.08 uIU/mL (0.36-3.74) 12/12/18 06:40 Urine Color Yellow (Yellow) 12/11/18 16:46 Urine Clarity Clear (Clear) 12/11/18 16:46 Urine pH 5.0 (5-8) 12/11/18 16:46 Ur Specific [place] 1.015 (1.005-1.025) 12/11/18 16:46 Urine Protein Negative mg/dL (Negative) 12/11/18 16:46 Urine Ketones Negative mg/dL (Negative) 12/11/18 16:46 Urine Blood Negative (Negative) 12/11/18 16:46 Urine Nitrite Negative (Negative) 12/11/18 16:46 Urine Bilirubin Small (Negative) H 12/11/18 16:46 Urine Urobilinogen 2.0 EU/dL (Up TO 0.2) H 12/11/18 16:46 Ur Leukocyte Esterase Negative (Negative) 12/11/18 16:46 Urine Glucose Negative mg/dL (Negative) 12/11/18 16:46 Urine Opiates Screen Negative (Negative) 12/11/18 16:45 Urine Methadone Screen Negative (Negative) 12/11/18 16:45 Acetaminophen < 2 ug/mL (10-30) L 12/12/18 06:40 Ur Barbiturates Screen Negative (Negative) 12/11/18 16:45 Ur Tricyclics Screen Negative (Negative) 12/11/18 16:45 Ur Amphetamines Screen Negative (Negative) 12/11/18 16:45 U Benzodiazepines Scrn Negative (Negative) 12/11/18 16:45 Urine Cocaine Screen Negative (Negative) 12/11/18 16:45 Ur THC Screen Negative (Negative) 12/11/18 16:45 Ethyl Alcohol < 3.0 mg/dL (<3) 12/11/18 16:46 Hepatitis A IgM Ab Negative (NEGAT) 12/12/18 07:50 Hep Bs Antigen Negative (NEGAT) 12/12/18 07:50 Hep B Core Total Ab Negative (NEGAT) 12/12/18 07:50 Hepatitis C Antibody Negative (NEGAT) 12/12/18 07:50 CT chest/abdomen/pelvis 12/12/18: 1. Findings consistent with multifocal pneumonia 2. Hepatic cirrhosis and presumed portal venous hypertension with associated upper abdominal varices and splenomegaly. 3. Findings highly suggestive of colitis, uncertain etiology; inflammatory, infectious or ischemic causes should be considered. 4. Large quantity of rectal fecal material consistent with constipation. CT head (2nd) 12/12/18: No evidence of acute intracranial process. XR L tib/fib/femur 12/12/18: There is a severely comminuted, markedly displaced fracture of the distal femur, which extends through the distal articular surface with marked separation of the condyles and apparent shortening of the bone. No tibial or fibular fracture seen. Patella not ideally evaluated but no definite patellar fracture is seen. US abdomen 12/12/18: Examination is technically limited. Small liver with heterogeneous echotexture consistent with the patient's diagnosis of hepatic cirrhosis. No other significant acute findings. Please note that there is no gross evidence of portal vein thrombosis and portal vein flow is normo directional.
[2018-12-13 14:33] LABS: ANA Interpretation Negative (NEGAT)
[2018-12-13] MEDS: MORPHine 250 MG in Normal Saline 245 ML IV (15:44)
--- NOTE | 2018-12-13 16:47 | CMPROGNOTE_ITS ---
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 She is unable to communicate at this time. CM met with her bilingual case manager from [facility], Chasity, and her [facility] home provider, Karen and provided support. Chasity and Karen asked about cremation options, which were given to them by CM. They also asked CM about a JAVIER benefit for cremation, which CM is looking into. CM will continue to follow. A: Tammy is a 73 year old female admitted to [facility] on 12/12/2018 with pnuemonia, renal failure, jaundice. 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 CM will provide comfort and support patient and caregivers through end of life care. CM will continue to follow.
--- NOTE | 2018-12-13 16:47 | PDOC.CMPRO ---
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 She is unable to communicate at this time. CM met with her bilingual patient support caseworker from [facility], Chasity, and her [facility] home provider, Karen and provided support. Chasity and Karen asked about cremation options, which were given to them by CM. They also asked CM about a JAVIER benefit for cremation, which CM is looking into. CM will continue to follow. A: Tammy is a 73 year old female admitted to [facility] on 12/12/2018 with pnuemonia, renal failure, jaundice. 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 CM will provide comfort and support patient and caregivers through end of life care. CM will continue to follow.
[2018-12-13] MEDS: Refresh PLUS Eye Drops 0.4ml OU (22:25)
[2018-12-14] MEDS: Refresh PLUS Eye Drops 0.4ml OU ×2 (03:23→05:56)
[2018-12-14] MEDS: MORPHine 2 MG/ML SYR IV/SC ×6 (05:56→14:43)
--- NOTE | 2018-12-14 07:52 | CHAPLAIN ---
I visited with Tammy Home Care Provider, Karen, yesterday. Tammy was unresponsive. Karen said they had had a polly conversation the night before. According to Karen, Tammy has not relatives. She said Karen believes in God and they talked about God and Jaiden, during their conversation the night before. Tammy has a childlike view of God, according to Karen. 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 She moved her from [place].
[2018-12-14] MEDS: LORazepam 2 MG/ML VIAL IV/SC ×5 (07:58→14:45)
[2018-12-14] MEDS: Normal Saline Flush 10 ML SYR IVP ×2 (08:21→09:48)
--- NOTE | 2018-12-14 11:15 | W.PM.PROGNOT ---
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 Unresponsive with apneic respirations about one breath every fifteen to twenty seconds. Morphine infusion at 5 mg/hour. Ativan prn. Patient has multiple areas of bruising with hematomas, Large blood filled blister to right heel. Eyes glazed and open. Bruising to chin. Patient looks like she is dying. Continue to monitor comfort. 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 Multiple areas of bruising. Right heel with large blood filled blister. Morphine infusion increased to 5 mg/hr per nursing. Ativan given for moaning. Continue to monitor respiratory status. Patient also feels febrile, likely due to spesis. Will continue to make comfortable at this time. Exam Narrative Exam Narrative: General: Unresponsive obese female who is having long apneic episodes and looks like she is dying; comfortable HEENT: Eyes open, dry MM, +JVD Heart: RRR, no m/r/g Lungs: apneic breathing pattern GI: abdomen is soft, obese, distended Extremities: 3+ pitting edema B, hematoma L knee, hip; large blood filled blister to right heel Objective Objective Clinical Data: Vital Signs Temperature 36.3 C L 12/12/18 13:50 Temperature Source Temporal Artery Scan 12/12/18 13:50 Pulse 86 12/13/18 13:00 Pulse Rhythm Regular 12/11/18 17:18 Pulse Strength Normal 12/11/18 17:18 Pulse 70 12/12/18 14:00 Respiratory Rate 10 L 12/13/18 13:00 Respiratory Effort Agonal 12/14/18 07:55 Respiratory Depth Deep 12/14/18 07:55 Respiratory Pattern Tachypnea 12/14/18 07:55 Blood Pressure 95/67 L 12/12/18 14:00 Blood Pressure Mean 74 12/12/18 14:00 Blood Pressure Position Supine 12/12/18 13:50 Pulse Oximetry 97 12/12/18 14:00 Oxygen Delivery Method Room Air 12/12/18 13:50 Oxygen Flow Rate 0 12/12/18 13:50 Pain Level 0 12/13/18 12:15 Comment 12/13/18 13:00 Intake & Output 12/13/18 12/13/18 12/14/18 11:59 23:59 11:59 Intake Total 8.292 / 8.292 Output Total 1949 Balance - -1149 8.292 / 8.292 Intake: IV 8.292 / 8.292 Output: Urine 1949 Other: Urine Color Dark Gloria Urine Appearance Clear Clear Clear Laboratory Results WBC 11.19 k/cumm (4.4-10.8) H 12/12/18 06:40 RBC 2.77 m/cumm (4.00-5.20) L 12/12/18 06:40 Hgb 8.1 g/dL (12.0-15.5) L 12/12/18 06:40 Hct 25.5 % (36.0-46.0) L 12/12/18 06:40 MCV 92.1 fL (80-95) 12/12/18 06:40 MCH 29.2 pg (27.0-33.0) 12/12/18 06:40 MCHC 31.8 g/dL (32.0-36.0) L 12/12/18 06:40 RDW 17.3 % (11.7-14.6) H 12/12/18 06:40 Plt Count 161 x1000/uL (130-400) 12/12/18 06:40 MPV 10.7 fL (8.0-11.0) 12/12/18 06:40 Immature Gran % 0.0 12/11/18 16:46 Neutrophils % 80.0 12/11/18 16:46 Band Neutrophils % 0.0 % 12/11/18 16:46 Lymphocytes % 9.0 12/11/18 16:46 Atypical Lymphs % 8 12/11/18 16:46 Monocytes % 3.0 12/11/18 16:46 Eosinophils % 0.0 12/11/18 16:46 Basophils % 0.0 12/11/18 16:46 Absolute Neutrophils 8.91 k/cumm (1.2-6.7) H 12/11/18 16:46 Absolute Lymphocytes 1.89 k/cumm (1.2-3.4) 12/11/18 16:46 Absolute Monocytes 0.33 k/cumm (0.11-0.7) 12/11/18 16:46 Absolute Eosinophils 0.00 k/cumm (0.0-0.7) 12/11/18 16:46 Absolute Basophils 0.00 k/cumm (0.0-0.2) 12/11/18 16:46 Differential Comment Manual differential 12/11/18 16:46 RBC Morphology See below 12/11/18 16:46 Polychromasia Present 12/11/18 16:46 Macrocytosis 1+ 12/11/18 16:46 PT 20.1 sec (9.3-11.0) H 12/12/18 06:40 INR 2.0 (0.9-1.1) H 12/12/18 06:40 APTT 36.5 sec (21.0-31.4) H 12/11/18 16:46 Sample Site Cancelled 12/12/18 12:44 pCO2 Cancelled 12/12/18 12:44 pO2 Cancelled 12/12/18 12:44 O2 Saturation Cancelled 12/12/18 12:44 ABG pH Cancelled 12/12/18 12:44 ABG HCO3 Cancelled 12/12/18 12:44 ABG Total CO2 Cancelled 12/12/18 12:44 ABG Base Excess Cancelled 12/12/18 12:44 VBG pH 7.48 (7.32-7.43) H 12/12/18 07:50 VBG pCO2 31 mm/Hg (34-47) L 12/12/18 07:50 VBG pO2 98 mm/Hg (28-44) H 12/12/18 07:50 VBG HCO3 23 mmol/L (22-28) 12/12/18 07:50 VBG Total CO2 22 mmol/L (22-29) 12/12/18 07:50 VBG O2 Saturation 98 % (70-80) H 12/12/18 07:50 VBG Base Excess -0.6 mmol/L (-3-3) 12/12/18 07:50 Oxygen Liter Flow Cancelled 12/12/18 12:44 FiO2 Cancelled 12/12/18 12:44 Sodium Cancelled 12/12/18 14:30 Potassium Cancelled 12/12/18 14:30 Chloride Cancelled 12/12/18 14:30 Carbon Dioxide Cancelled 12/12/18 14:30 Anion Gap Cancelled 12/12/18 14:30 BUN Cancelled 12/12/18 14:30 Creatinine Cancelled 12/12/18 14:30 Estimated GFR/1.73 m2 Cancelled 12/12/18 14:30 Glucose Cancelled 12/12/18 14:30 Lactate 2.3 mmol/L (0.6-1.4) H* 12/12/18 12:22 Calcium Cancelled 12/12/18 14:30 Magnesium 3.3 mg/dL (1.8-2.4) H 12/11/18 16:46 Iron 12 ug/dL (50-175) L 12/11/18 16:46 TIBC 198 ug/dL (250-450) L 12/11/18 16:46 Transferrin % Sat 6 % (15-50) L 12/11/18 16:46 Ferritin 127 ng/mL (8-388) 12/11/18 16:46 Total Bilirubin 6.8 mg/dL (0.2-1.0) H 12/12/18 06:40 Conjugated Bilirubin 5.42 mg/dL (0.00-0.20) H 12/12/18 06:40 AST 136 U/L (15-37) H 12/12/18 06:40 ALT 55 U/L (14-59) 12/12/18 06:40 Alkaline Phosphatase 162 U/L (46-116) H 12/11/18 16:46 Ammonia 43 umol/L (11-32) H 12/12/18 07:50 Creatine Kinase 350 U/L (26-192) H 12/11/18 16:46 Troponin I < 0.05 ng/mL (0.00-0.06) 12/11/18 16:46 C-Reactive Protein > 25.00 mg/dL (0.0-0.3) H 12/12/18 06:40 NT-Pro-B Natriuret Pep 1264 pg/mL (-299) H 12/11/18 16:46 Total Protein 5.8 g/dL (6.4-8.2) L 12/11/18 16:46 Albumin 1.8 g/dL (3.4-5.0) L 12/11/18 16:46 Procalcitonin 11.6 ng/mL 12/12/18 07:50 TSH 2.08 uIU/mL (0.36-3.74) 12/12/18 06:40 Urine Color Yellow (Yellow) 12/11/18 16:46 Urine Clarity Clear (Clear) 12/11/18 16:46 Urine pH 5.0 (5-8) 12/11/18 16:46 Ur Specific [place] 1.015 (1.005-1.025) 12/11/18 16:46 Urine Protein Negative mg/dL (Negative) 12/11/18 16:46 Urine Ketones Negative mg/dL (Negative) 12/11/18 16:46 Urine Blood Negative (Negative) 12/11/18 16:46 Urine Nitrite Negative (Negative) 12/11/18 16:46 Urine Bilirubin Small (Negative) H 12/11/18 16:46 Urine Urobilinogen 2.0 EU/dL (Up TO 0.2) H 12/11/18 16:46 Ur Leukocyte Esterase Negative (Negative) 12/11/18 16:46 Urine Glucose Negative mg/dL (Negative) 12/11/18 16:46 Urine Opiates Screen Negative (Negative) 12/11/18 16:45 Urine Methadone Screen Negative (Negative) 12/11/18 16:45 Acetaminophen < 2 ug/mL (10-30) L 12/12/18 06:40 Ur Barbiturates Screen Negative (Negative) 12/11/18 16:45 Ur Tricyclics Screen Negative (Negative) 12/11/18 16:45 Ur Amphetamines Screen Negative (Negative) 12/11/18 16:45 U Benzodiazepines Scrn Negative (Negative) 12/11/18 16:45 Urine Cocaine Screen Negative (Negative) 12/11/18 16:45 Ur THC Screen Negative (Negative) 12/11/18 16:45 Ethyl Alcohol < 3.0 mg/dL (<3) 12/11/18 16:46 JOANNE Titer Not Applicable 12/12/18 07:50 JOANNE Titer 2 Not Applicable 12/12/18 07:50 JOANNE Titer 3 Not Applicable 12/12/18 07:50 JOANNE Interpretation Negative (NEGAT) 12/12/18 07:50 Hepatitis A IgM Ab Negative (NEGAT) 12/12/18 07:50 Hep Bs Antigen Negative (NEGAT) 12/12/18 07:50 Hep B Core Total Ab Negative (NEGAT) 12/12/18 07:50 Hepatitis C Antibody Negative (NEGAT) 12/12/18 07:50
[2018-12-14] MEDS: Glycopyrrolate 0.2 MG/1 ML VIAL IVP (14:43)
--- NOTE | 2018-12-14 15:15 | CHAPLAIN ---
Tammy is unresponsive and on comfort measures only. I didn't see Tammy caregiver while I was in Tammy's room today.
--- NOTE | 2018-12-14 17:19 | W.PM.DDS ---
Date of service: 12/14/18 Time of Service: 17:19 Discharge Sum: Prov Provider Consults: 12/12/18 00:12 Palliative Care Consult [CONS] Routine Consultation Status:: Contact made by MD Clarification:: One time opinion Reason for consult:: chronically ill 12/12/18 12:48 Surgical Consult [CONS] Routine Consulting Provider: Ellen Lopez Consultation Status:: Contact made by Clarification:: Manage/follow per spec. Reason for consult:: question of SBP, consult for paracenthesis Discharge Sum: Diag PCOD Cause of : Liver failure Contributing Factors (1) Comfort measures only status: Contributing factors: Multisystem organ failure. Sepsis, Acute liver failure. Fall to floor and sitting in bed x 1week without eating or drinking. Discharge Sum: Summary Date and Time Admission Date: 12/12/1910/06/19 14:25 Date of : 12/15/15 Time of : 15:55 Summary Details: due to multiorgan system failure. Likely due from sepsis, Liver failure possible DIC. coagulopathy, after a fall to the floor at home, then lying in bed x 1 week with out moving, eating or drinking. Additional Data Confirmation of as documented by pronouncing clinician: no pulse Attending Physician: Kain Patel workers' compensation claims examiner notified?: Yes
--- NOTE | 2018-12-14 18:46 | CMDISCH_ITS ---
- If Service Date Differs Date of service: 12/14/18 Time of Service: 18:47 Care Management Discharge Reason for Hospitalization: Pnuemonia, renal failure, jaundice Discharge Plan: Tammy peacefully at [facility] today.[facility] [place] will be handling the arrangements.
== END 2018-12-14 16:00 | disposition expired | DRG 193 ==
LOC: ER 12-12 00:25 → ICU 12-12 00:36 → MS 12-14 10:50 → ICU 12-19 11:29
PROVIDERS: Admitting Provider General Practice; Emergency Provider Physician Assistant; PCP Internal Medicine; Visit Provider Internal Medicine
DX: J18.9 Pneumonia, unspecified organism (principal); G92 Toxic encephalopathy; D65 Disseminated intravascular coagulation [defibrination syndrome]; A41.9 Sepsis, unspecified organism; J96.00 Acute respiratory failure, unspecified whether with hypoxia or hypercapnia; K65.2 Spontaneous bacterial peritonitis; S72.492A Other fracture of lower end of left femur, initial encounter for closed fracture; N17.9 Acute kidney failure, unspecified; I50.32 Chronic diastolic (congestive) heart failure; Z68.41 Body mass index [BMI] 40.0-44.9, adult; R39.2 Extrarenal uremia; Z51.5 Encounter for palliative care; E87.5 Hyperkalemia; E80.6 Other disorders of bilirubin metabolism; K74.60 Unspecified cirrhosis of liver; E88.09 Other disorders of plasma-protein metabolism, not elsewhere classified; S00.83XA Contusion of other part of head, initial encounter; T73.0XXA Starvation, initial encounter; S30.1XXA Contusion of abdominal wall, initial encounter; S70.12XA Contusion of left thigh, initial encounter; S80.02XA Contusion of left knee, initial encounter; S90.31XA Contusion of right foot, initial encounter; W18.30XA Fall on same level, unspecified, initial encounter; X83.8XXA Intentional self-harm by other specified means, initial encounter; D64.9 Anemia, unspecified; E11.9 Type 2 diabetes mellitus without complications; F32.9 Major depressive disorder, single episode, unspecified; G47.33 Obstructive sleep apnea (adult) (pediatric); Z66 Do not resuscitate; R41.82 Altered mental status, unspecified; L89.616 Pressure-induced deep tissue damage of right heel; Y95 Nosocomial condition; F41.9 Anxiety disorder, unspecified; R26.2 Difficulty in walking, not elsewhere classified; R47.81 Slurred speech; E66.01 Morbid (severe) obesity due to excess calories; K52.9 Noninfective gastroenteritis and colitis, unspecified; Z87.19 Personal history of other diseases of the digestive system; Z79.4 Long term (current) use of insulin
CPT/HCPCS: 36415; 36416; 71250; 73552; 80048; 80053; 80307; 82550; 82805; 82962; 84145; 85027; 86704; 86709; 86803; 87040; 87340; 93005; 96361; 96365; 96366; 96368; 99222; 99223; 99233; 99239; 99253; 99285; 99291; 99292; 70450; 71046; 73590; 74176; 76700; 80320; 80329; 81003; 82140; 82247; 82248; 82728; 83540; 83550; 83605; 83735; 83880; 84443; 84450; 84460; 84484; 85025; 85610; 85730; 86038; 86140; 93010; J1956; J2060; J2270; J3430